=== PATIENT | male | born 1930 | race Caucasian/White ===

== ENCOUNTER 2016-09-01 22:08 | Inpatient (IN) | payer MEDICARE, BC, OTHER ==
[~2016-09-01] VITALS: Ht 172.7 cm; Wt 59.2 kg
[~2016-09-01 22:08] MED LIST: ARIC10TA PO; ASPI1TAB PO; FLON0.054; LIPI20TA PO; NAME10TA PO; SERT25TA PO; SERT50TA PO; SLOWTAB3 PO; VITMTA PO
[2016-09-01 23:50] LABS: BASO % 0.2 % (0.0-1.0); EOS # 0.1 K/mm3 (0.0-0.50); EOS % 0.8 % (0.0-3.0); LARGE UNSTAINED CELL # 0.1 K/mm3 (0.0-0.4); LARGE UNSTAINED CELL % 0.6 % (0.0-4.0); LYMPH # 0.7 K/mm3 (1.5-4.5); LYMPH % 4.6 % (24.0-44.0); MEAN CORPUSCULAR HEMOGLOBIN 31.6 pg (27.0-33.0); MEAN CORPUSCULAR HGB CONC 33.5 g/dl (32.0-36.5); MEAN CORPUSCULAR VOLUME 94.3 fl (80.0-96.0); MONO # 0.6 K/mm3 (0.0-0.8); MONO % 3.6 % (0.0-5.0); NEUTROPHILS # 13.8 K/mm3 (1.8-7.7); NEUTROPHILS % 90.1 % (36.0-66.0); PLATELET COUNT, AUTOMATED 150 k/mm3 (150-450); RED CELL DISTRIBUTION WIDTH 12.5 % (11.5-14.5); WHITE BLOOD COUNT 15.3 K/mm3 (4.0-10.0)
[2016-09-02] VITALS (8 sets, daily range): BP systolic 138–168; BP diastolic 71–87
--- NOTE | 2016-09-02 00:20 | REPUSA ---
CT of the head Clinical history: Headache. Trauma. Protocol: Multiple axial CT images obtained with 5 mm slice thickness were obtained through the head without administration of contrast. Findings: There is a large focal hemorrhagic contusion in the right frontal lobe measuring 3.1 x 1.8 cm. There are numerous scattered areas of subdural hemorrhage throughout the right frontal, right par ietal, right occipital, and left parietal lobes. No significant edema or mass effect is seen at the s ite at this time There are periventricular areas of low attenuation throughout the deep white matter. There is no midline shift or extra-axial fluid collection. The osseous structures are unremarkable. The visualized paranasal sinuses and mastoid air cells are clear. There is superficial soft tissue s welling in the left occipital region. Impression: 1. Large focal hemorrhagic contusion in the right frontal lobe. 2. Small tiny scattered areas of subdural hematoma are seen in the right frontal, right parietal, rig ht occipital, and left parietal lobes. No evidence of edema or mass effect is seen at this time. 3. Superficial soft tissue swelling in the left occipital region. 4. The other findings are consistent with moderate age-related atrophy and chronic small vessel ische kenny disease. ER physician was notified of these findings at 12:18 AM on 09/02/2016.
--- NOTE | 2016-09-02 00:20 | REPUSA ---
CLINICAL HISTORY: Neck pain. TECHNIQUE: Multiple axial images were obtained through the cervical spine. Images were also reconstru cted in coronal and sagittal planes. The study was performed without IV contrast. COMMENTS: Grade 1 anterolisthesis of C4 on C5. This is a chronic finding. There is no fracture or spondylolisthesis visualized. The paraspinal soft tissues are unremarkable. T here are no lytic or blastic lesions. Straightening of cervical lordosis is seen, suggesting muscular spasm. There is evidence of moderate multilevel disk disease, demonstrated by osteophytosis and endplate sclerosis. Findings are more pro minent at C5-6 level. Multilevel spinal canal and neural foramina narrowing is seen. Findings are more prominent at C4-C5 l evel. IMPRESSION: No acute traumatic pathology. Spondylosis. Thank you for your kind referral of this patient.
[2016-09-02] MEDS ORDERED: MIRA3350 PO (00:22)
[2016-09-02] MEDS ORDERED: DOCU100C PO (00:22)
[2016-09-02 00:57] LABS: INR 1.03
[2016-09-02 01:02] LABS: ANION GAP 9 MEQ/L (8-16); BLOOD UREA NITROGEN 15 MG/DL (7-18); CALCIUM LEVEL 8.5 MG/DL (8.8-10.2); CARBON DIOXIDE LEVEL 28 MEQ/L (21-32); CHLORIDE LEVEL 107 MEQ/L (98-107); CREATININE FOR GFR 0.86 MG/DL (0.70-1.30); FREE T4 0.97 NG/DL (0.76-1.46); GLOMERULAR FILTRATION RATE > 60.0 (>35); GLUCOSE, FASTING 103 MG/DL (83-110); POTASSIUM SERUM 4.4 MEQ/L (3.5-5.1); SODIUM LEVEL 144 MEQ/L (136-145)
[2016-09-02] MEDS ORDERED: MIRALAX *UNIT DOSE* 17GM PACKET PO PRN (01:45)
[2016-09-02] MEDS ORDERED: DOCUSATE SODIUM 100 MG CAP PO PRN (01:45)
--- NOTE | 2016-09-02 02:41 | HPEPDOC ---
General Date of Admission September 02, 2016 Primary Care Physician: Earl Bhat MD Attending Physician: TONI NASH DO Chief Complaint The patient is a 86-year-old male admitted with a reason for visit of FALL. Source: Patient History of Present Illness This is a 85-year-old male with past medical history significant for hyperlipidemia, diverticulosis, BPH, GERD, dementia, depression, and fall history. He presents today to the emergency department after being found by his at the bottom of the stairs in a recliner with blood covering his head and clothing. He had apparently endured traumatic injuries to his head from a fall. Unfortunately, was not present to answer my questions. The patient reports that he does not remember the fall. He does not recall any events surrounding the injury. He denies any pain at the moment, and states that he is comfortable. He denies any symptoms of lightheadedness, dizziness, chest pain, abdominal pain, shortness of breath, joint pain, sensory deficits. He was able to identify his full name. He recognized that he was inside a hospital. He was able to identify the year as 2016, but was unable to identify the month. He knew his home address. Was able to identify his primary care physician. According to emergency department staff, patient's personality is not baseline. Patient states that he does not use a walker or cane while for ambulation. In the emergency department, patient's bleeding was stabilized. They placed 3 michelle in his left occipital scalp in the area of laceration. Bleeding has since stabilized. They also took a CT of the neck, completed on 09/01/2016 which showed spondylosis in no acute traumatic pathology. Patient had a head CT completed on 09/01/2016 which showed a large focal hemorrhagic contusion in the right frontal lobe. There were small tiny scattered areas of subdural hematoma in the right frontal, right parietal, right occipital, and left parietal lobes. There were no evidence of edema or mass effect seen. There was also superficial skin soft tissue swelling in the left occipital region. And age related chronic ischemic changes and atrophy. Home Medications Scheduled Atorvastatin Calcium (Lipitor) 20 Mg Tab 10 MG PO Q2D (Reported) AT QHS Donepezil Hydrochloride (Aricept) 10 Mg Tab 5 MG PO QHS (Reported) Memantine Hydrochloride (Namenda) 10 Mg Tab 10 MG PO BID (Reported) Multivitamins *[facility] STOCKED* (Thera M Plus *[facility] STOCKED*) 1 Tab Tab 1 TAB PO DAILY (Reported) Sertraline Hcl (Sertraline HCl) 50 Mg Tab 50 MG PO DAILY (Reported) Scheduled PRN Docusate Sodium (Docusate Sodium) 100 Mg Cap 100 MG PO QHS PRN PRN CONSTIPATION (Reported) Polyethylene Glycol (Miralax) 1 Pow Pow 17 GM PO DAILY PRN PRN CONSTIPATION ( Reported) dilute in 8 ounces of water or juice Allergies Coded Allergies: No Known Allergies (Unverified , 03/08/15) Past Medical History Medical History Hyperlipidemia Diverticulosis BPH GERD History of fall Dementia Depression Surgical History Cataract Colonoscopies, most recent 2014 Family History Significant Family History: Noncontributory Social History * Smoker: non-smoker Alcohol: denies Drugs: denies Recent Travel/Sick Contacts: Denies: Recent travel Psychosocial History: Dementia, Depression Independently lives with his , they have no pets. Patient is retired. Review of Symptoms Constitutional: Denies: Chills, Fever, Night Sweats Eyes: Denies: Pain, Vision change ENT: Denies: Dysphagia, Ear Pain, Head Aches Skin: Reports: Other (laceration injury to posterior scalp) Pulmonary: Denies: Cough, Dyspnea Cardiovascular: Denies: Chest Pain, Lt Headedness, Orthopnea, Palpitations, Paroxysmal Noc. Dyspnea Gastrointestinal: Denies: Abdominal Pain, Diarrhea, Nausea, Vomiting Genitourinary: Denies: Dysuria, Frequency, Incontinence, Retention Hematologic: Denies: Bleeding Excessively, Bruising Musculoskeletal: Denies: Back Pain, Joint Pain, Muscle Pain, Neck Pain, Spasms Neurological: Denies: Change in speech, Confusion, Numbness, Weakness Psych: Reports: Mood Normal, Denies: Depression, Memory Issues Physical Examination General Exam: Positive: Alert, Cooperative, Negative: No Acute Distress Eye Exam: Positive: Conjunctiva & lids normal, EOMI, PERRLA, Negative: Sclera icteric ENT Exam: Positive: Mucous membr. moist/pink, Pharynx Normal, Negative: Atraumatic (laceration injury to the left occiput, 3 michelle, injury is dry, no discharge. Some swelling in the area.) Neck Exam: Positive: Supple, Negative: JVD, thyromegaly Chest Exam: Positive: Clear to auscultation, Normal air movement Heart Exam: Positive: Normal S1, Normal S2, Rate Normal, Regular Rhythm, Negative: Murmurs, Rubs Abdomen Exam: Positive: Normal bowel sounds, Soft, Negative: Hepatospenomegaly, Tenderness Extremity Exam: Positive: Normal pulses, Negative: Clubbing, Cyanosis, Edema Skin Exam: Positive: Lesion (swelling appreciated in the left occiput) Neuro Exam: Positive: Cranial Nerves 3-12 NL, Normal Gait, Normal Speech Psych Exam: Positive: Oriented x 3 (oriented to person, place, year) Vital Signs Temperature 95.5 Pulse 59 Respirations 18 Blood pressure 150/74 O2 saturation 99% on room air Laboratory Data Labs 24H Laboratory Tests 2 09/01/16 23:40: White Blood Count 15.3H, Red Blood Count 4.44, Hemoglobin 14.0, Hematocrit 41.8L , Mean Corpuscular Volume 94.3, Mean Corpuscular Hemoglobin 31.6, Mean Corpuscular Hemoglobin Concent 33.5, Red Cell Distribution Width 12.5, Platelet Count 150, Neutrophils (%) (Auto) 90.1H, Lymphocytes (%) (Auto) 4.6L, Monocytes (%) (Auto) 3.6, Eosinophils (%) (Auto) 0.8, Basophils (%) (Auto) 0.2, Neutrophils # (Auto) 13.8H, Lymphocytes # (Auto) 0.7L, Monocytes # (Auto) 0.6, Eosinophils # (Auto) 0.1, Basophils # (Auto) 0.0, Large Unclassified Cells # 0.1 , Large Unclassified Cells % 0.6 CBC/BMP Laboratory Tests 09/01/16 23:40 Red Blood Count 4.44, Mean Corpuscular Volume 94.3, Mean Corpuscular Hemoglobin 31.6, Mean Corpuscular Hemoglobin Concent 33.5, Red Cell Distribution Width 12.5 , Neutrophils (%) (Auto) 90.1 H, Lymphocytes (%) (Auto) 4.6 L, Monocytes (%) ( Auto) 3.6, Eosinophils (%) (Auto) 0.8, Basophils (%) (Auto) 0.2, Neutrophils # ( Auto) 13.8 H, Lymphocytes # (Auto) 0.7 L, Monocytes # (Auto) 0.6, Eosinophils # (Auto) 0.1, Basophils # (Auto) 0.0 RAD Interpretation STUDY: head CT Rad Actions: Report Reviewed RAD Interpretation: Other Result Comments: (large focal hemorrhagic contusion in the right frontal lobe. There were small tiny scattered areas of subdural hematoma in the right frontal, right parietal, right occipital, and left parietal lobes. There were no evidence of edema or mass effect seen. There was also superficial skin soft tissue swelling in the left occipital region. And age related chronic ischemic changes and atrophy) Problems (1) Syncope Status: Acute Problem Text: Will be admitted to PCU and placed on telemetry. Patient will be monitored overnight and stabilized. Further workup pending. Pending EEG. Pending carotid echo. Pending repeat cardiac markers. (2) Intracerebral bleed due to trauma Status: Acute Problem Text: Case was discussed with neurosurgery. We will monitor his mental status. Patient will have neuro checks overnight. Repeat head CT in the morning. We will review changes. We will review repeat CBC. (3) Dementia Status: Chronic Problem Text: Continue patient on home medications. (4) Depression Status: Chronic Problem Text: Continue patient on home medication. Plan / VTE VTE Prophylaxis Ordered?: Yes LOVE ACUÑA DO Sep 02, 2016 01:49
[2016-09-02] MEDS: DONEPEZIL 5 MG TAB PO SCH ×2 (03:54→20:27)
[2016-09-02 05:38] LABS: MEAN CORPUSCULAR HEMOGLOBIN 30.9 pg (27.0-33.0); MEAN CORPUSCULAR HGB CONC 33.2 g/dl (32.0-36.5); MEAN CORPUSCULAR VOLUME 92.9 fl (80.0-96.0); RED CELL DISTRIBUTION WIDTH 12.4 % (11.5-14.5); WHITE BLOOD COUNT 11.4 K/mm3 (4.0-10.0)
[2016-09-02 05:53] LABS: ANION GAP 7 MEQ/L (8-16); BLOOD UREA NITROGEN 14 MG/DL (7-18); CALCIUM LEVEL 8.6 MG/DL (8.8-10.2); CARBON DIOXIDE LEVEL 28 MEQ/L (21-32); CHLORIDE LEVEL 107 MEQ/L (98-107); CREATININE FOR GFR 0.83 MG/DL (0.70-1.30); GLOMERULAR FILTRATION RATE > 60.0 (>35); GLUCOSE, FASTING 127 MG/DL (83-110); POTASSIUM SERUM 4.2 MEQ/L (3.5-5.1); SODIUM LEVEL 142 MEQ/L (136-145)
[2016-09-02] MEDS ORDERED: ONDANSETRON 4MG/2ML VIAL (J2405) IV ONE (07:00)
[2016-09-02] MEDS: MULTIVITAMINS/MINERALS THERAP 1 TAB PO SCH (09:16)
[2016-09-02] MEDS: MEMANTINE 5MG TABLET (NAMENDA) PO SCH ×2 (09:16→20:27)
[2016-09-02] MEDS: SERTRALINE HCL 50 MG TAB PO SCH (09:17)
--- NOTE | 2016-09-02 10:22 | REP ---
PORTABLE CHEST X-RAY: Single view. HISTORY: Syncope. Injury in a fall down stairs. Comparison chest x-ray June 21, 2016. FINDINGS: EKG monitoring electrodes overlie the chest. There is no evidence of pneumothorax or hydrothorax. Mediastinum is not widened. The aorta is slightly calcific. Heart size is normal. Lung whit[place] are clear. Pulmonary vasculature is not increased. No rib or other fracture is appreciated. IMPRESSION: No active disease. Signed by William Espinosa MD 09/02/2016 04:39 P
--- NOTE | 2016-09-02 11:53 | IPNPDOC ---
Subjective Date Seen The patient was seen on 09/02/16. Subjective Chief Complaint/HPI The patient is a 86-year-old male admitted with a reason for visit of Syncope. Events since last encounter Feels well. No headaache. NO vision changes. Constitutional: Denies: Chills, Fever Pulmonary: Denies: Cough, Dyspnea Cardiovascular: Denies: Chest Pain, Palpitations Gastrointestinal: Denies: Abdominal Pain, Diarrhea, Nausea, Vomiting Objective Physical Examination General Exam: Positive: Alert, Cooperative, Negative: No Acute Distress Eye Exam: Positive: Conjunctiva & lids normal, EOMI, PERRLA, Negative: Sclera icteric ENT Exam: Positive: Ext Auditory Canal Nml, Mucous membr. moist/pink, Nares Patent, Pharyngeal Edema, Pharynx Normal, Pinna Normal, Tongue Midline, Tympanic Membranes Normal, Negative: Atraumatic, Other ENT Neck Exam: Positive: Supple, Negative: JVD, thyromegaly Chest Exam: Positive: Clear to auscultation, Normal air movement Heart Exam: Positive: Normal S1, Normal S2, Rate Normal, Regular Rhythm, Negative: Murmurs, Rubs Abdomen Exam: Positive: Normal bowel sounds, Soft, Negative: Hepatospenomegaly, Tenderness Extremity Exam: Positive: Normal pulses, Negative: Clubbing, Cyanosis, Edema Skin Exam: Positive: Lesion (swelling appreciated in the left occiput) Neuro Exam: Positive: Cranial Nerves 3-12 NL, Normal Gait, Normal Speech Psych Exam: Positive: Oriented x 3 (oriented to person, place, year) Other physical findings JFW: mental status declined fom baseline. Does not recognize me (thinks I am his ambulance officer). Not aware of location. has baseline dementia; this is worse Also, HEENT exam should note scalp michelle Assessment /Plan Problems (1) Syncope Status: Acute Problem Text: Will be admitted to PCU and placed on telemetry. Patient will be monitored overnight and stabilized. Further workup pending. Pending EEG. Pending carotid echo. Pending repeat cardiac markers. 09/02 - No further syncope Telemetry uneventful so far. Patient is bright and alert, but weak. Cardiac enzymes normal so far. EEG done this morning - results pending (2) Intracerebral bleed due to trauma Status: Acute Problem Text: Case was discussed with neurosurgery. We will monitor his mental status. Patient will have neuro checks overnight. Repeat head CT in the morning. We will review changes. We will review repeat CBC. 09/02 - Neuro status stable F/U CT head pending this am JFW: CT: sl inc intraparenchymal bleed (3) Dementia Status: Chronic Problem Text: Continue patient on home medications. JFW: current mental status significantly below baseline (4) Depression Status: Chronic Problem Text: Continue patient on home medication. (5) Occipital scalp laceration Status: Acute Problem Text: has 3 michelle in scalp. 1) needs removal in 10-14days 2) no MRI if michelle are metallic Plan/VTE VTE Prophylaxis Ordered?: Yes (SCD TEDs - no anticoagulation due to subdural hematomas) VTE Exclusion Pharmacological: Hemorrhage VS, I&O, 24H, Fishbone Vital Signs/I&O Vital Signs Date Time Temp Pulse Resp B/P Pulse Ox O2 Delivery O2 Flow Rate FiO2 09/02/16 08:10 88 147/76 09/02/16 08:00 97.5 18 97 09/02/16 07:02 Room Air Laboratory Data 24H LABS Laboratory Tests 2 09/01/16 23:40: White Blood Count 15.3H, Red Blood Count 4.44, Hemoglobin 14.0, Hematocrit 41.8L , Mean Corpuscular Volume 94.3, Mean Corpuscular Hemoglobin 31.6, Mean Corpuscular Hemoglobin Concent 33.5, Red Cell Distribution Width 12.5, Platelet Count 150, Neutrophils (%) (Auto) 90.1H, Lymphocytes (%) (Auto) 4.6L, Monocytes (%) (Auto) 3.6, Eosinophils (%) (Auto) 0.8, Basophils (%) (Auto) 0.2, Neutrophils # (Auto) 13.8H, Lymphocytes # (Auto) 0.7L, Monocytes # (Auto) 0.6, Eosinophils # (Auto) 0.1, Basophils # (Auto) 0.0, Large Unclassified Cells # 0.1 , Large Unclassified Cells % 0.6 09/02/16 05:12: Anion Gap 7L, Blood Urea Nitrogen 14, Creatinine 0.83, Sodium Level 142, Potassium Level 4.2, Chloride Level 107, Carbon Dioxide Level 28, Calcium Level 8.6L, Triglycerides Level 98, Cholesterol Level 141, HDL Cholesterol 62, LDL Cholesterol 59.4, Cholesterol/HDL Ratio 2.274, Glomerular Filtration Rate > 60.0 , Non-HDL Cholesterol (LDL + VLDL) 79 09/02/16 08:25: Creatine Kinase MB 5.0H, Creatine Kinase MB Relative Index 1.81, Total Creatine Kinase 276, Troponin I < 0.02 CBC/BMP Laboratory Tests 09/01/16 23:40 Red Blood Count 4.44, Mean Corpuscular Volume 94.3, Mean Corpuscular Hemoglobin 31.6, Mean Corpuscular Hemoglobin Concent 33.5, Red Cell Distribution Width 12.5 , Neutrophils (%) (Auto) 90.1 H, Lymphocytes (%) (Auto) 4.6 L, Monocytes (%) ( Auto) 3.6, Eosinophils (%) (Auto) 0.8, Basophils (%) (Auto) 0.2, Neutrophils # ( Auto) 13.8 H, Lymphocytes # (Auto) 0.7 L, Monocytes # (Auto) 0.6, Eosinophils # (Auto) 0.1, Basophils # (Auto) 0.0 09/02/16 05:12 Red Blood Count 4.38, Mean Corpuscular Volume 92.9, Mean Corpuscular Hemoglobin 30.9, Mean Corpuscular Hemoglobin Concent 33.2, Red Cell Distribution Width 12.4 , Calcium Level 8.6 L ALBERTO BHAT PA-C Sep 02, 2016 11:52 Earl Bhat MD Sep 02, 2016 15:27
--- NOTE | 2016-09-02 11:55 | REP ---
CT HEAD WITHOUT CONTRAST: HISTORY: Intracranial hemorrhage. COMPARISON: 09/01/2016 An intraparenchymal hematoma is present at the right frontal lobe. The hematoma measures 2.9 cm in width and is slightly increased in size compared to the previous study. There is mass effect with effacement of the overlying cortical sulci. There is no midline shift. Areas of decreased attenuation are present in the periventricular and subcortical white matter. This represents small vessel ischemic disease. The ventricular system and cortical sulci are dilated consistent with mild volume loss. A small amount of subarachnoid hemorrhage is present that is unchanged compared to the previous study. The visualized sinuses are clear. IMPRESSION: 1. 2.9 cm right frontal lobe intraparenchymal hematoma slightly increased in size compared to the previous study. 2. Small vessel ischemic disease. 3. Mild volume loss. 4. There is a small amount of scattered subarachnoid hemorrhage, unchanged compared to the previous study. Signed by Skyler Luong MD 09/02/2016 12:03 P
[2016-09-02] MEDS: SLF 3 ML SYR IV SCH ×2 (14:00→20:27)
[2016-09-02] MEDS ORDERED: FLEET ENEMA PR PRN (15:30)
[2016-09-02] MEDS ORDERED: SLF 3 ML SYR IV PRN (16:30)
--- NOTE | 2016-09-02 17:44 | ECHO ---
DATE OF PROCEDURE: 09/02/2016 REFERRING PHYSICIAN: Ulysses Romero INDICATION: Syncope. HEIGHT: 173 cm WEIGHT: 72 kg Dimensions IVS: 1.0 LV: 3.3 LVPW: 0.9 LA: 3.6 Aorta 3.4 FINDINGS: Study is of acceptable technical quality. Left ventricle is normal size in systolic function. Estimated left ventricle ejection fraction (LVEF) 65 to 70%. Right ventricle is also normal size and systolic function. Both atria appear normal. The aortic valve has three cusps. There are mild sclerotic abnormalities but mobility is preserved. Mitral valve appears normal, there is mild thickening of the mitral leaflet but mobility of leaflet is preserved. Tricuspid valve is normal. Pulmonic valve was not well seen. No pericardial effusion is noted. Inferior vena cava was not visualized. Aortic root is normal. Aortic arch and abdominal aorta were poorly seen. Doppler interrogation reveals no significant aortic stenosis and trivial insufficiency. There is also trace mitral insufficiency and mild tricuspid insufficiency. Calculated pulmonary artery pressure is within normal limits assuming normal central venous pressure. Mitral inflow pattern and tissue Doppler imaging of mitral annulus revealed grade 1 diastolic dysfunction. CONCLUSION: 1. Study is of fair technical quality. 2. Normal left ventricle (LV) size and systolic function, grade 1 diastolic dysfunction. 3. Mild degenerative abnormalities of aortic and mitral valves, but without significant functional impairment. 4. Unable to estimate central venous pressure. 5. Probably normal or possibly mildly elevated pulmonary artery pressure. COMMENT: Subacute bacterial endocarditis (SBE) prophylaxis is not recommended. Overall probably normal echocardiogram for patient's age. No finding to explain syncopal event. [facility]
[2016-09-02] MEDS: SENOKOT S TAB PO SCH (20:26)
[2016-09-02] MEDS: ATORVASTATIN 20 MG TAB PO SCH (20:26)
[2016-09-02] MEDS: MIRALAX *UNIT DOSE* 17GM PACKET PO SCH (20:27)
--- NOTE | 2016-09-02 20:37 | REP ---
CAROTID ULTRASOUND: Real-time ultrasound evaluation and duplex Doppler interrogation of the extracranial carotid vasculature is performed. There is mild plaquing and narrowing in both carotid bulbs extending into the internal and external carotid arteries. Luminal narrowing is less than 50%. There is no evidence of hemodynamically significant stenosis of either internal carotid artery. Normal flow velocities are seen. The vertebral arteries demonstrate normal direction of flow. RIGHT LEFT Peak systolic velocity ICA 51 cm/s 80.7 cm/s End diastolic velocity ICA 10.5 cm/s 16.6 cm/s Peak systolic velocity CCA 76.8 cm/s 86.8 cm/s Peak systolic velocity ECA 104.9 cm/s 57 cm/s ICA/CCA ratio 0.67 0.93 IMPRESSION: Bilateral luminal narrowing of the internal carotid arteries less than 50%. No evidence of hemodynamically significant stenosis. Signed by Damian Saeed MD 09/02/2016 08:29 P
[2016-09-03] VITALS (7 sets, daily range): BP systolic 131–168; BP diastolic 63–82
[2016-09-03] MEDS: SLF 3 ML SYR IV SCH ×3 (04:35→20:13)
[2016-09-03 05:46] LABS: MEAN CORPUSCULAR HEMOGLOBIN 31.5 pg (27.0-33.0); MEAN CORPUSCULAR HGB CONC 33.8 g/dl (32.0-36.5); MEAN CORPUSCULAR VOLUME 93.2 fl (80.0-96.0); RED CELL DISTRIBUTION WIDTH 12.5 % (11.5-14.5); WHITE BLOOD COUNT 11.6 K/mm3 (4.0-10.0)
[2016-09-03 06:14] LABS: ANION GAP 8 MEQ/L (8-16); BLOOD UREA NITROGEN 15 MG/DL (7-18); CALCIUM LEVEL 7.7 MG/DL (8.8-10.2); CARBON DIOXIDE LEVEL 27 MEQ/L (21-32); CHLORIDE LEVEL 107 MEQ/L (98-107); CREATININE FOR GFR 0.81 MG/DL (0.70-1.30); GLOMERULAR FILTRATION RATE > 60.0 (>35); GLUCOSE, FASTING 106 MG/DL (83-110); POTASSIUM SERUM 3.9 MEQ/L (3.5-5.1); SODIUM LEVEL 142 MEQ/L (136-145)
--- NOTE | 2016-09-03 08:45 | IPNPDOC ---
Subjective Date Seen The patient was seen on 09/03/16. Subjective Chief Complaint/HPI The patient is a 86-year-old male admitted with a reason for visit of Syncope. Events since last encounter Pt denies headaches. Denies CP, SOB, Abd pain. Pulmonary: Denies: Dyspnea Cardiovascular: Denies: Chest Pain Gastrointestinal: Denies: Abdominal Pain, Nausea, Vomiting Objective Physical Examination General Exam: Positive: Alert, Cooperative, Negative: No Acute Distress Eye Exam: Positive: Conjunctiva & lids normal, EOMI, PERRLA, Negative: Sclera icteric ENT Exam: Positive: Ext Auditory Canal Nml, Mucous membr. moist/pink, Nares Patent, Pharynx Normal, Tongue Midline, Negative: Atraumatic, Other ENT Neck Exam: Positive: Supple, Negative: JVD, thyromegaly Chest Exam: Positive: Clear to auscultation, Normal air movement Heart Exam: Positive: Normal S1, Normal S2, Rate Normal, Regular Rhythm, Negative: Murmurs, Rubs Abdomen Exam: Positive: Normal bowel sounds, Soft, Negative: Hepatospenomegaly, Tenderness Extremity Exam: Positive: Normal pulses, Negative: Clubbing, Cyanosis, Edema Skin Exam: Positive: Lesion (swelling appreciated in the left occiput) Neuro Exam: Positive: Cranial Nerves 3-12 NL, Normal Gait, Normal Speech Psych Exam: Positive: Oriented x 3 (oriented to person, place, year) Assessment /Plan Problems (1) Syncope Status: Acute Problem Text: Telemetry uneventful so far. 09/03 -at baseline MS per 09/02 - No further syncope 3/3 EEG right frontal, parietal, temporal and occipital slowing and mild attenuation consistent with focal, cortical, structural, or functional abnormalities. No epileptiform abnormalities were seen Neurosurgery has been following. 3/ cervical CT s fracture 3/ carotid US s significant ICA stenosis 3/3 ECHO LVEF 65-70%. Grade 1 diastolic dysfunction (2) Intracerebral bleed due to trauma Status: Acute Problem Text: 3 CT head stable 27 mm IP hematoma slight SAH c/w 3/ CT, stable neuro exam Appreciate Neurosurgery input (3) Dementia Status: Chronic Problem Text: Continue patient on home medications. JFW: current mental status significantly below baseline (4) Depression Status: Chronic Problem Text: Continue patient on home medication. (5) Occipital scalp laceration Status: Acute Problem Text: has 3 michelle in scalp. 1) needs removal in 10-14days 2) no MRI if michelle are metallic Plan/VTE VTE Prophylaxis Ordered?: Yes (SCD TEDs - no anticoagulation due to subdural hematomas) VTE Exclusion Pharmacological: Hemorrhage VS, I&O, 24H, Fishbone Vital Signs/I&O Vital Signs Date Time Temp Pulse Resp B/P Pulse Ox O2 Delivery O2 Flow Rate FiO2 09/03/16 08:00 97.0 87 18 133/63 97 Room Air I&O- Last 24 Hours up to 6 AM 09/03/16 06:00 Intake Total 880 ml Output Total 100 ml Balance 780 ml Laboratory Data 24H LABS Laboratory Tests 2 09/02/16 16:03: Creatine Kinase MB 7.5H, Creatine Kinase MB Relative Index 1.85, Total Creatine Kinase 405H, Troponin I < 0.02 09/03/16 05:30: Anion Gap 8, Blood Urea Nitrogen 15, Creatinine 0.81, Sodium Level 142, Potassium Level 3.9, Chloride Level 107, Carbon Dioxide Level 27, Calcium Level 7.7L, Glomerular Filtration Rate > 60.0 CBC/BMP Laboratory Tests 09/03/16 05:30 Calcium Level 7.7 L, Red Blood Count 4.04 L, Mean Corpuscular Volume 93.2, Mean Corpuscular Hemoglobin 31.5, Mean Corpuscular Hemoglobin Concent 33.8, Red Cell Distribution Width 12.5 Joseph Rome Sep 03, 2016 08:45 Pablo Bowers M.D. Sep 03, 2016 14:36 Joseph Rome Sep 03, 2016 08:45
[2016-09-03] MEDS: MULTIVITAMINS/MINERALS THERAP 1 TAB PO SCH (08:57)
[2016-09-03] MEDS: SENOKOT S TAB PO SCH ×2 (08:57→20:10)
[2016-09-03] MEDS: MIRALAX *UNIT DOSE* 17GM PACKET PO SCH ×2 (08:57→20:13)
[2016-09-03] MEDS: SERTRALINE HCL 50 MG TAB PO SCH (08:57)
[2016-09-03] MEDS: MEMANTINE 5MG TABLET (NAMENDA) PO SCH ×2 (08:57→20:10)
--- NOTE | 2016-09-03 09:18 | EEG ---
DATE OF PROCEDURE: 09/02/2016 REFERRING PHYSICIAN: Earl Bhat MD DIAGNOSIS: Head injury. EEG NUMBER: [id number]. HISTORY: Patient is a 86-year-old man who was admitted at [facility] after a fall and was found to have right-sided subdural hematoma and hemorrhagic contusion. This EEG was done to rule out epileptic potential. He is currently taking Aricept, Namenda, Lipitor, Zoloft, etc. TECHNICAL DESCRIPTION: This digital EEG was recorded by 21 scalp, ear and two EKG electrodes and was reviewed in bipolar and referential montages following reformatting in 10-20 international electrode placement system. INTERPRETATION: The patient was noted to be in awake and drowsy states during this EEG. Resting awake background rhythm consisted of 8 Hz alpha activity measuring 15-30 microvolts in amplitude, which were symmetric and reactive to eye opening. Stage I and II sleep were reviewed and showed mild attenuation in the right cerebral hemisphere. Right frontal parietal, temporal, and occipital theta slowing was noted. Hyperventilation could not be performed. Photic stimulation remained unremarkable. EKG revealed normal sinus rhythm. No epileptiform abnormalities were seen. CONCLUSION: This EEG in awake, drowsy states, stage 1 and 2 sleep is abnormal due to presence of right frontal, parietal, temporal and occipital slowing and mild attenuation consistent with focal, cortical, structural, or functional abnormalities. No epileptiform abnormalities were seen. Clinical correlation is recommended.
--- NOTE | 2016-09-03 09:52 | REP ---
CT BRAIN WITHOUT IV CONTRAST: CT brain is performed without IV contrast. Once again, there is an intraparenchymal hematoma in the right frontal lobe which is unchanged in size. There is mild surrounding edema with effacement of sulci. Diameter is about 2.7 cm similar to the prior exam. There is no midline shift. More superiorly in the right frontal and parietal regions, areas of subarachnoid hemorrhage are also stable. Tiny posterior subarachnoid hemorrhage is seen in the left parietal region. There is underlying atrophy and chronic ischemic changes. No skull fracture is seen. Small amount of fluid is seen in the maxillary sinuses bilaterally. There are vascular calcifications in the carotid siphons. IMPRESSION: Stable exam. Signed by Damian Saeed MD 09/03/2016 07:57 P
--- NOTE | 2016-09-03 12:16 | ECGEPIP ---
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
[2016-09-03] MEDS ORDERED: CALCIUM CARBONATE 500 MG CHEW U/D PO ONE (16:15)
[2016-09-03 16:42] LABS: IONIZED CALCIUM 4.7 MG/DL (4.5-5.3)
[2016-09-03 17:00] LABS: ALBUMIN 3.7 GM/DL (3.2-5.2); ANION GAP 6 MEQ/L (8-16); BLOOD UREA NITROGEN 16 MG/DL (7-18); CALCIUM LEVEL 8.3 MG/DL (8.8-10.2); CARBON DIOXIDE LEVEL 30 MEQ/L (21-32); CHLORIDE LEVEL 105 MEQ/L (98-107); CREATININE FOR GFR 0.86 MG/DL (0.70-1.30); GLOMERULAR FILTRATION RATE > 60.0 (>35); GLUCOSE, FASTING 113 MG/DL (83-110); PHOSPHORUS LEVEL 2.9 MG/DL (2.5-4.9); POTASSIUM SERUM 4.1 MEQ/L (3.5-5.1); SODIUM LEVEL 141 MEQ/L (136-145)
[2016-09-03] MEDS: DONEPEZIL 5 MG TAB PO SCH (20:10)
[2016-09-04] VITALS (7 sets, daily range): BP systolic 47–184; BP diastolic 66–82
[2016-09-04 05:29] LABS: MEAN CORPUSCULAR HEMOGLOBIN 31.5 pg (27.0-33.0); MEAN CORPUSCULAR HGB CONC 34.2 g/dl (32.0-36.5); MEAN CORPUSCULAR VOLUME 92.2 fl (80.0-96.0); RED CELL DISTRIBUTION WIDTH 12.3 % (11.5-14.5); WHITE BLOOD COUNT 9.3 K/mm3 (4.0-10.0)
[2016-09-04 05:36] LABS: ANION GAP 9 MEQ/L (8-16); BLOOD UREA NITROGEN 17 MG/DL (7-18); CALCIUM LEVEL 8.5 MG/DL (8.8-10.2); CARBON DIOXIDE LEVEL 28 MEQ/L (21-32); CHLORIDE LEVEL 104 MEQ/L (98-107); CREATININE FOR GFR 0.84 MG/DL (0.70-1.30); GLOMERULAR FILTRATION RATE > 60.0 (>35); GLUCOSE, FASTING 105 MG/DL (83-110); POTASSIUM SERUM 3.7 MEQ/L (3.5-5.1); SODIUM LEVEL 141 MEQ/L (136-145)
[2016-09-04] MEDS: SLF 3 ML SYR IV SCH ×3 (05:52→21:25)
--- NOTE | 2016-09-04 07:30 | IPNPDOC ---
Subjective Date Seen The patient was seen on 09/04/16. Subjective Chief Complaint/HPI The patient is a 86-year-old male admitted with a reason for visit of Syncope. Events since last encounter Pt denies headaches, CP, SOB, Abd pain. ENT: Denies: Head Aches Pulmonary: Denies: Dyspnea Cardiovascular: Denies: Chest Pain Gastrointestinal: Denies: Abdominal Pain, Nausea, Vomiting Objective Physical Examination General Exam: Positive: Alert, Cooperative, Negative: No Acute Distress Eye Exam: Positive: Conjunctiva & lids normal, EOMI, PERRLA, Negative: Sclera icteric ENT Exam: Positive: Ext Auditory Canal Nml, Mucous membr. moist/pink, Nares Patent, Pharynx Normal, Tongue Midline, Negative: Atraumatic, Other ENT Neck Exam: Positive: Supple, Negative: JVD, thyromegaly Chest Exam: Positive: Clear to auscultation, Normal air movement Heart Exam: Positive: Normal S1, Normal S2, Rate Normal, Regular Rhythm, Negative: Murmurs, Rubs Abdomen Exam: Positive: Normal bowel sounds, Soft, Negative: Hepatospenomegaly, Tenderness Extremity Exam: Negative: Clubbing, Cyanosis, Edema Skin Exam: Positive: Lesion (swelling appreciated in the left occiput) Neuro Exam: Positive: Normal Speech Psych Exam: Positive: Oriented x 3 (oriented to person, place, year) Assessment /Plan Problems (1) Syncope Status: Acute Problem Text: Telemetry uneventful so far. 09/03 -at baseline MS per 09/02 - No further syncope 09/02 EEG right frontal, parietal, temporal and occipital slowing and mild attenuation consistent with focal, cortical, structural, or functional abnormalities. No epileptiform abnormalities were seen Neurosurgery has been following. 09/[address] s fracture 09/02 carotid US s significant ICA stenosis 09/02 ECHO LVEF 65-70%. Grade 1 diastolic dysfunction (2) Intracerebral bleed due to trauma Status: Acute Problem Text: nothing more to add per Neurosurgery-Narda 09/04 - Dr Laboy following. Pt receiving PT. 09/03 CT head stable 27 mm IP hematoma slight SAH c/w 09/02 CT, stable neuro exam (3) Dementia Status: Chronic Problem Text: Continue patient on home medications. JFW: current mental status significantly below baseline (4) Depression Status: Chronic Problem Text: Continue patient on home medication. (5) Occipital scalp laceration Status: Acute Problem Text: has 3 michelle in scalp. 1) needs removal in 10-14days 2) no MRI if michelle are metallic Plan/VTE VTE Prophylaxis Ordered?: Yes (SCD TEDs - no anticoagulation due to subdural hematomas) VTE Exclusion Pharmacological: Hemorrhage Plan 09/02 unsafe per PT VS, I&O, 24H, Fishbone Vital Signs/I&O Vital Signs Date Time Temp Pulse Resp B/P Pulse Ox O2 Delivery O2 Flow Rate FiO2 09/04/16 05:30 136/66 09/04/16 04:00 96.3 73 18 99 Room Air I&O- Last 24 Hours up to 6 AM 09/04/16 06:00 Intake Total 240 ml Output Total 1250 ml Balance -1010 ml Laboratory Data 24H LABS Laboratory Tests 2 09/03/16 16:31: Albumin 3.7, Blood Urea Nitrogen 16, Creatinine 0.86, Sodium Level 141, Potassium Level 4.1, Chloride Level 105, Carbon Dioxide Level 30, Anion Gap 6L, Calcium Level 8.3L, Glomerular Filtration Rate > 60.0, Phosphorus Level 2.9, Whole Blood Ionized Calcium 4.7 09/04/16 04:54: Blood Urea Nitrogen 17, Creatinine 0.84, Sodium Level 141, Potassium Level 3.7, Chloride Level 104, Carbon Dioxide Level 28, Anion Gap 9, Calcium Level 8.5L, Glomerular Filtration Rate > 60.0 CBC/BMP Laboratory Tests 09/03/16 16:31 Anion Gap 6 L 09/04/16 04:54 Calcium Level 8.5 L, Red Blood Count 4.32, Mean Corpuscular Volume 92.2, Mean Corpuscular Hemoglobin 31.5, Mean Corpuscular Hemoglobin Concent 34.2, Red Cell Distribution Width 12.3 Joseph Rome Sep 04, 2016 07:30 Pablo Bowers M.D. Sep 04, 2016 14:31
[2016-09-04] MEDS: MEMANTINE 5MG TABLET (NAMENDA) PO SCH ×2 (09:00→21:25)
[2016-09-04] MEDS: MIRALAX *UNIT DOSE* 17GM PACKET PO SCH ×2 (09:00→21:25)
[2016-09-04] MEDS: SENOKOT S TAB PO SCH ×2 (09:50→21:25)
[2016-09-04] MEDS: MULTIVITAMINS/MINERALS THERAP 1 TAB PO SCH (09:51)
[2016-09-04] MEDS: SERTRALINE HCL 50 MG TAB PO SCH (09:51)
[2016-09-04] MEDS ORDERED: PROCHLORPERAZINE 5 MG TAB (S0183) PO PRN (15:30)
[2016-09-04] MEDS ORDERED: PROCHLORPERAZINE 5 MG TAB (S0183) PO ONE (16:15)
[2016-09-04] MEDS: DONEPEZIL 5 MG TAB PO SCH (21:25)
[2016-09-04] MEDS: ATORVASTATIN 20 MG TAB PO SCH (21:25)
[2016-09-05] VITALS: BP 132/84
[2016-09-05 04:00] VITALS: BP 133/75
[2016-09-05 05:36] LABS: MEAN CORPUSCULAR HEMOGLOBIN 31.6 pg (27.0-33.0); MEAN CORPUSCULAR HGB CONC 34.3 g/dl (32.0-36.5); MEAN CORPUSCULAR VOLUME 92.2 fl (80.0-96.0); RED CELL DISTRIBUTION WIDTH 12.4 % (11.5-14.5)
[2016-09-05 05:58] LABS: ANION GAP 10 MEQ/L (8-16); BLOOD UREA NITROGEN 19 MG/DL (7-18); CALCIUM LEVEL 8.8 MG/DL (8.8-10.2); CARBON DIOXIDE LEVEL 27 MEQ/L (21-32); CHLORIDE LEVEL 104 MEQ/L (98-107); CREATININE FOR GFR 0.81 MG/DL (0.70-1.30); GLOMERULAR FILTRATION RATE > 60.0 (>35); GLUCOSE, FASTING 87 MG/DL (83-110); POTASSIUM SERUM 3.6 MEQ/L (3.5-5.1); SODIUM LEVEL 141 MEQ/L (136-145)
[2016-09-05] MEDS: SLF 3 ML SYR IV SCH (06:12)
[2016-09-05 07:25] VITALS: BP 144/81
--- NOTE | 2016-09-05 08:36 | IPNPDOC ---
Subjective Date Seen The patient was seen on 09/05/16. Subjective Chief Complaint/HPI Pt c/o dizziness with change of position. General: Denies: Fatigue Constitutional: Denies: Chills, Fever Eyes: Denies: Vision change Pulmonary: Denies: Cough, Dyspnea Cardiovascular: Denies: Chest Pain, Palpitations Gastrointestinal: Denies: Diarrhea, Nausea, Vomiting Neurological: Denies: Weakness Psych: Reports: Mood Normal Objective Physical Examination General Exam: Positive: Alert, Cooperative, Negative: No Acute Distress Eye Exam: Positive: Conjunctiva & lids normal, EOMI, PERRLA, Negative: Sclera icteric ENT Exam: Negative: Atraumatic, Other ENT Neck Exam: Positive: Supple, Negative: JVD Chest Exam: Positive: Clear to auscultation, Normal air movement Heart Exam: Positive: Normal S1, Normal S2, Rate Normal, Regular Rhythm, Negative: Murmurs, Rubs Abdomen Exam: Positive: Normal bowel sounds, Soft, Negative: Hepatospenomegaly, Tenderness Extremity Exam: Negative: Clubbing, Cyanosis, Edema Skin Exam: Positive: Lesion (swelling appreciated in the left occiput) Neuro Exam: Positive: Normal Speech Psych Exam: Positive: Oriented x 3 (oriented to person, place, year) Assessment /Plan Problems (1) Syncope Status: Acute Problem Text: 09/04 - Telemetry uneventful, NS no longer following. CT stable. EEG, as below, Neg CT C spine, Carotid US without sign ICA stenosis 09/03 -at baseline MS per 09/02 - No further syncope 09/02 EEG right frontal, parietal, temporal and occipital slowing and mild attenuation consistent with focal, cortical, structural, or functional abnormalities. No epileptiform abnormalities were seen Neurosurgery has been following. 09/[address] s fracture 09/02 carotid US s significant ICA stenosis 09/02 ECHO LVEF 65-70%. Grade 1 diastolic dysfunction (2) Intracerebral bleed due to trauma Status: Acute Problem Text: 09/05 - CT head stable on 09/03. nothing more to add per Neurosurgery -Narda 09/04 - Dr Laboy following. Pt receiving PT. 09/03 CT head stable 27 mm IP hematoma slight SAH c/w 09/02 CT, stable neuro exam (3) Dementia Status: Chronic Problem Text: Continue patient on home medications. JFW: current mental status significantly below baseline (4) Depression Status: Chronic Problem Text: Continue patient on home medication. (5) Occipital scalp laceration Status: Acute Problem Text: has 3 michelle in scalp. 1) needs removal in 10-14days 2) no MRI if michelle are metallic Plan/VTE VTE Prophylaxis Ordered?: Yes (SCD TEDs - no anticoagulation due to subdural hematomas) VTE Exclusion Pharmacological: Hemorrhage Plan Therapy: PT Family Medicine Attending Note: Patient seen and examined today; I d/w MIKE High and I agree with her note. Patient denies dizziness or other complaints at present. Neuro exam is WNL. He was transferred to Med/Surg today. Per PT/OT notes, he is requiring only minimal assistance with ambulation and they recommend home with public health for discharge plan. Sitter at bedside states he was able to ambulate to the bathroom without assistance this afternoon. If he continues to do well tonight and tomorrow, we can consider discharge home with Public Health. (KES) VS[facility]O Vital Signs Date Time Temp Pulse Resp B/P Pulse Ox O2 Delivery O2 Flow Rate FiO2 09/05/16 04:00 97.0 73 18 133/75 94 Room Air I&O- Last 24 Hours up to 6 AM 09/05/16 06:00 Intake Total 360 ml Output Total 900 ml Balance -540 ml Laboratory Data 24H LABS Laboratory Tests 2 09/05/16 05:20: Anion Gap 10, Blood Urea Nitrogen 19H, Creatinine 0.81, Sodium Level 141, Potassium Level 3.6, Chloride Level 104, Carbon Dioxide Level 27, Calcium Level 8.8, Glomerular Filtration Rate > 60.0 CBC/BMP Laboratory Tests 09/05/16 05:20 Calcium Level 8.8 09/05/16 05:21 Red Blood Count 4.60, Mean Corpuscular Volume 92.2, Mean Corpuscular Hemoglobin 31.6, Mean Corpuscular Hemoglobin Concent 34.3, Red Cell Distribution Width 12.4 TRINI STEEL PA-C Sep 05, 2016 08:36 JAKE PATINO MD Sep 05, 2016 15:03
[2016-09-05] MEDS: MIRALAX *UNIT DOSE* 17GM PACKET PO SCH ×2 (08:46→20:19)
[2016-09-05] MEDS: SENOKOT S TAB PO SCH ×2 (08:47→20:20)
[2016-09-05] MEDS: MULTIVITAMINS/MINERALS THERAP 1 TAB PO SCH (08:47)
[2016-09-05] MEDS: MEMANTINE 5MG TABLET (NAMENDA) PO SCH ×2 (08:47→20:20)
[2016-09-05] MEDS: SERTRALINE HCL 50 MG TAB PO SCH (08:47)
[2016-09-05 11:25] VITALS: BP 153/75
--- NOTE | 2016-09-05 12:57 | IPN ---
DATE: 09/04/2016 NEUROSURGERY The patient was seen at the bedside today. He is alert. Regarding his orientation, he knows that he is in [place] and that he is in the hospital, although he is unable to identify the name of the hospital. He states that the year is 2012 and that the month is October. He remembers his name and he is able to name children, repeating that he has six. He spoke with his sitter's, nurses Jacey and Zara, who report that the patient has not been eating or drinking and that they have encouraged him to do so. In speaking with the patient, he states that he has no appetite, that he has been trying to eat. According to the nurse, the patient woke up last nigh around 3:00 or 4:00 this morning and became very agitated, thinking that he was at home. He became very disoriented not knowing where he was. States he becomes dizzy on occasion, although this improves when he sits up. Nurse states that the daughter states that he has become more confused since he had fallen down the stairs prior to his admission. Nurse states that the daughter will be up later this afternoon, at which time she will inquire more information about his mental status baseline. The patient denies any pain anywhere. Denies any headache. The patient was pleasant during the examination and conversation. The michelle around his ulceration on the head appear to have no drainage or erythema or any increased pain at the site. Vitals have been stable. The patient has been afebrile. It appears his followup CT scans of the brain have remained stable since his admission. We will continue to monitor the patient. No new recommendations at this time. Recommended that the patient will benefit from inpatient rehabilitation regarding his gait and dizziness therapy.
[2016-09-05] MEDS: DONEPEZIL 5 MG TAB PO SCH (20:20)
[2016-09-05 22:00] VITALS: BP 155/83
[2016-09-05] MEDS ORDERED: LORazepam 0.5 MG TAB PO STA (22:30)
[2016-09-06 06:00] VITALS: BP 120/60
[2016-09-06 06:44] LABS: MEAN CORPUSCULAR HGB CONC 33.4 g/dl (32.0-36.5); MEAN CORPUSCULAR VOLUME 92.8 fl (80.0-96.0); RED CELL DISTRIBUTION WIDTH 12.5 % (11.5-14.5); WHITE BLOOD COUNT 9.9 K/mm3 (4.0-10.0)
[2016-09-06 07:46] LABS: ANION GAP 10 MEQ/L (8-16); BLOOD UREA NITROGEN 23 MG/DL (7-18); CALCIUM LEVEL 8.7 MG/DL (8.8-10.2); CARBON DIOXIDE LEVEL 28 MEQ/L (21-32); CHLORIDE LEVEL 105 MEQ/L (98-107); CREATININE FOR GFR 0.91 MG/DL (0.70-1.30); GLOMERULAR FILTRATION RATE > 60.0 (>35); GLUCOSE, FASTING 92 MG/DL (83-110); POTASSIUM SERUM 4.1 MEQ/L (3.5-5.1); SODIUM LEVEL 143 MEQ/L (136-145)
--- NOTE | 2016-09-06 08:13 | IPNPDOC ---
Subjective Date Seen The patient was seen on 09/06/16. Subjective Chief Complaint/HPI Pt sleeping this morning. Sitter at bedside. Difficult to obtain complete ROS , pt kept telling me he was sleeping. Pulmonary: Denies: Cough, Dyspnea Cardiovascular: Denies: Chest Pain Objective Physical Examination General Exam: Positive: No Acute Distress, Negative: Cooperative Eye Exam: Negative: Sclera icteric ENT Exam: Negative: Atraumatic, Other ENT Neck Exam: Positive: Supple, Negative: JVD Chest Exam: Positive: Clear to auscultation, Normal air movement Heart Exam: Positive: Normal S1, Normal S2, Rate Normal, Regular Rhythm, Negative: Murmurs, Rubs Abdomen Exam: Positive: Normal bowel sounds, Soft, Negative: Hepatospenomegaly, Tenderness Extremity Exam: Negative: Clubbing, Cyanosis, Edema Neuro Exam: Positive: Normal Speech Assessment /Plan Problems (1) Dementia Status: Chronic Problem Text: 09/06 - Not safe per PT. Continue patient on home medications. JFW: current mental status significantly below baseline (2) Syncope Status: Acute Problem Text: 09/04 - Telemetry uneventful, NS no longer following. CT stable. EEG, as below, Neg CT C spine, Carotid US without sign ICA stenosis 09/03 -at baseline MS per 09/02 - No further syncope 09/02 EEG right frontal, parietal, temporal and occipital slowing and mild attenuation consistent with focal, cortical, structural, or functional abnormalities. No epileptiform abnormalities were seen Neurosurgery has been following. 09/[address] s fracture 09/02 carotid US s significant ICA stenosis 09/02 ECHO LVEF 65-70%. Grade 1 diastolic dysfunction (3) Intracerebral bleed due to trauma Status: Acute Problem Text: 09/05 - CT head stable on 09/03. nothing more to add per Neurosurgery -Narda 09/04 - Dr Laboy following. Pt receiving PT. 09/03 CT head stable 27 mm IP hematoma slight SAH c/w 09/02 CT, stable neuro exam (4) Depression Status: Chronic Problem Text: Continue patient on home medication. (5) Occipital scalp laceration Status: Acute Problem Text: has 3 michelle in scalp. 1) needs removal in 10-14days 2) no MRI if michelle are metallic Plan/VTE VTE Prophylaxis Ordered?: Yes (SCD TEDs - no anticoagulation due to subdural hematomas) VTE Exclusion Pharmacological: Hemorrhage Plan Therapy: PT VS, I&O, 24H, Fishbone Vital Signs/I&O Vital Signs Date Time Temp Pulse Resp B/P Pulse Ox O2 Delivery O2 Flow Rate FiO2 09/06/16 06:00 97.7 80 17 120/60 95 Room Air I&O- Last 24 Hours up to 6 AM 09/06/16 06:00 Intake Total 200 ml Output Total 200 ml Balance 0 ml Laboratory Data 24H LABS Laboratory Tests 2 09/06/16 06:24: Anion Gap 10, Blood Urea Nitrogen 23H, Creatinine 0.91, Sodium Level 143, Potassium Level 4.1, Chloride Level 105, Carbon Dioxide Level 28, Calcium Level 8.7L, Glomerular Filtration Rate > 60.0 CBC/BMP Laboratory Tests 09/06/16 06:24 Calcium Level 8.7 L, Red Blood Count 4.66, Mean Corpuscular Volume 92.8, Mean Corpuscular Hemoglobin 31.0, Mean Corpuscular Hemoglobin Concent 33.4, Red Cell Distribution Width 12.5 TRINI STEEL PA-C Sep 06, 2016 08:13
[2016-09-06] MEDS: SERTRALINE HCL 50 MG TAB PO SCH (08:49)
[2016-09-06] MEDS: MULTIVITAMINS/MINERALS THERAP 1 TAB PO SCH (08:49)
[2016-09-06] MEDS: SENOKOT S TAB PO SCH ×2 (08:49→20:11)
[2016-09-06] MEDS: MEMANTINE 5MG TABLET (NAMENDA) PO SCH ×2 (08:50→20:10)
[2016-09-06] MEDS: MIRALAX *UNIT DOSE* 17GM PACKET PO SCH ×2 (08:50→20:10)
[2016-09-06 11:33] VITALS: BP 141/85
[2016-09-06 13:53] VITALS: BP 124/74
[2016-09-06] MEDS: DONEPEZIL 5 MG TAB PO SCH (20:10)
[2016-09-06] MEDS: ATORVASTATIN 20 MG TAB PO SCH (20:11)
[2016-09-06 22:00] VITALS: BP 119/65
[2016-09-07 06:00] VITALS: BP 138/63
[2016-09-07 07:04] LABS: MEAN CORPUSCULAR HEMOGLOBIN 32.1 pg (27.0-33.0); MEAN CORPUSCULAR HGB CONC 33.7 g/dl (32.0-36.5); MEAN CORPUSCULAR VOLUME 95.2 fl (80.0-96.0); RED CELL DISTRIBUTION WIDTH 12.6 % (11.5-14.5); WHITE BLOOD COUNT 8.2 K/mm3 (4.0-10.0)
[2016-09-07 07:21] LABS: ANION GAP 8 MEQ/L (8-16); BLOOD UREA NITROGEN 20 MG/DL (7-18); CALCIUM LEVEL 8.4 MG/DL (8.8-10.2); CARBON DIOXIDE LEVEL 26 MEQ/L (21-32); CHLORIDE LEVEL 107 MEQ/L (98-107); CREATININE FOR GFR 0.87 MG/DL (0.70-1.30); GLOMERULAR FILTRATION RATE > 60.0 (>35); GLUCOSE, FASTING 82 MG/DL (83-110); POTASSIUM SERUM 3.9 MEQ/L (3.5-5.1); SODIUM LEVEL 141 MEQ/L (136-145)
[2016-09-07] MEDS: SENOKOT S TAB PO SCH ×2 (09:13→20:24)
[2016-09-07] MEDS: SERTRALINE HCL 50 MG TAB PO SCH (09:13)
[2016-09-07] MEDS: MIRALAX *UNIT DOSE* 17GM PACKET PO SCH ×2 (09:13→20:24)
[2016-09-07] MEDS: MEMANTINE 5MG TABLET (NAMENDA) PO SCH ×2 (09:13→20:24)
[2016-09-07] MEDS: MULTIVITAMINS/MINERALS THERAP 1 TAB PO SCH (09:14)
--- NOTE | 2016-09-07 12:42 | IPNPDOC ---
Subjective Date Seen The patient was seen on 09/07/16. Subjective Chief Complaint/HPI The patient is a 86-year-old male admitted with a reason for visit of Syncope. Events since last encounter Offers no c/o. continue to progress with PT/OT. Objective Physical Examination General Exam: Positive: No Acute Distress, Negative: Cooperative Eye Exam: Negative: Sclera icteric ENT Exam: Negative: Atraumatic, Other ENT Neck Exam: Positive: Supple, Negative: JVD Chest Exam: Positive: Clear to auscultation, Normal air movement Heart Exam: Positive: Normal S1, Normal S2, Rate Normal, Regular Rhythm, Negative: Murmurs, Rubs Abdomen Exam: Positive: Normal bowel sounds, Soft, Negative: Hepatospenomegaly, Tenderness Extremity Exam: Negative: Clubbing, Cyanosis, Edema Neuro Exam: Positive: Normal Speech Assessment /Plan Problems (1) Dementia Status: Chronic Problem Text: 09/07 - Patient has yet to be seen by PT today - will need to them to assess for discharge planning; if they do not feel he is safe to go home tomorrow, then we need to consider short-term rehab placement - I spoke with his daughter about this today and she was agreeable to this. (KES) 09/06 - Not safe per PT. Continue patient on home medications. (2) Syncope Status: Acute Problem Text: 09/07 - Patient continues to deny dizziness to providers but per PT notes, he c/o this when they try to work with him; he has had no further episodes of syncope; this may be related to his intracerebral hemorrhage. 09/04 - Telemetry uneventful, NS no longer following. CT stable. EEG, as below , Neg CT C spine, Carotid US without sign ICA stenosis 09/03 -at baseline MS per 09/02 - No further syncope 09/02 EEG right frontal, parietal, temporal and occipital slowing and mild attenuation consistent with focal, cortical, structural, or functional abnormalities. No epileptiform abnormalities were seen Neurosurgery has been following. 09/[address] s fracture 09/02 carotid US s significant ICA stenosis 09/02 ECHO LVEF 65-70%. Grade 1 diastolic dysfunction (3) Intracerebral bleed due to trauma Status: Acute Problem Text: 09/05 - CT head stable on 09/03. nothing more to add per Neurosurgery -Narda 09/04 - Dr Kidwai following. Pt receiving PT. 09/03 CT head stable 27 mm IP hematoma slight SAH c/w 09/02 CT, stable neuro exam (4) Depression Status: Chronic Problem Text: Continue patient on home medication. (5) Occipital scalp laceration Status: Acute Problem Text: has 3 michelle in scalp. 1) needs removal in 10-14days 2) no MRI if michelle are metallic Plan/VTE VTE Prophylaxis Ordered?: Yes (SCD TEDs - no anticoagulation due to subdural hematomas) VTE Exclusion Pharmacological: Hemorrhage Plan Therapy: PT Family medicine attending note: I saw Mr. Reza this morning and I agree with Yuridia Santana's note above with additions as noted. I will talk to his nurse to ensure that he is seen by PT today to determine discharge plans. (KES) VS, I&O, 24H, Fishbone Vital Signs/I&O Vital Signs Date Time Temp Pulse Resp B/P Pulse Ox O2 Delivery O2 Flow Rate FiO2 09/07/16 06:00 97.3 59 17 138/63 97 Room Air I&O- Last 24 Hours up to 6 AM 09/07/16 06:00 Intake Total 850 ml Output Total 0 ml Balance 850 ml Laboratory Data 24H LABS Laboratory Tests 2 09/07/16 06:31: Anion Gap 8, Blood Urea Nitrogen 20H, Creatinine 0.87, Sodium Level 141, Potassium Level 3.9, Chloride Level 107, Carbon Dioxide Level 26, Calcium Level 8.4L, Glomerular Filtration Rate > 60.0 CBC/BMP Laboratory Tests 09/07/16 06:31 Calcium Level 8.4 L, Red Blood Count 4.61, Mean Corpuscular Volume 95.2, Mean Corpuscular Hemoglobin 32.1, Mean Corpuscular Hemoglobin Concent 33.7, Red Cell Distribution Width 12.6 Yuridia Santana Sep 07, 2016 12:42 JAKE PATINO MD Sep 07, 2016 14:30
[2016-09-07 14:00] VITALS: BP 133/66
[2016-09-07] MEDS: DONEPEZIL 5 MG TAB PO SCH (20:24)
[2016-09-07 22:00] VITALS: BP 127/73
[2016-09-08 06:00] VITALS: BP 129/62
[2016-09-08 07:22] LABS: MEAN CORPUSCULAR HEMOGLOBIN 31.4 pg (27.0-33.0); MEAN CORPUSCULAR HGB CONC 33.8 g/dl (32.0-36.5); RED CELL DISTRIBUTION WIDTH 12.6 % (11.5-14.5); WHITE BLOOD COUNT 8.4 K/mm3 (4.0-10.0)
[2016-09-08 07:28] LABS: ANION GAP 8 MEQ/L (8-16); BLOOD UREA NITROGEN 22 MG/DL (7-18); CALCIUM LEVEL 8.9 MG/DL (8.8-10.2); CARBON DIOXIDE LEVEL 29 MEQ/L (21-32); CHLORIDE LEVEL 105 MEQ/L (98-107); CREATININE FOR GFR 1.14 MG/DL (0.70-1.30); GLOMERULAR FILTRATION RATE > 60.0 (>35); GLUCOSE, FASTING 93 MG/DL (83-110); POTASSIUM SERUM 4.2 MEQ/L (3.5-5.1); SODIUM LEVEL 142 MEQ/L (136-145)
[2016-09-08 08:40] VITALS: BP 134/67
--- NOTE | 2016-09-08 08:52 | IPNPDOC ---
Subjective Date Seen The patient was seen on 09/08/16. Subjective Chief Complaint/HPI Pt this morning without new concerns. He denies pain. Nursing requests nutritional supplement as the pt doesn't eat much for meals. General: Denies: Fatigue Constitutional: Denies: Chills, Fever Pulmonary: Denies: Cough, Dyspnea Cardiovascular: Denies: Chest Pain, Palpitations Gastrointestinal: Denies: Diarrhea, Nausea, Vomiting Psych: Reports: Mood Normal Objective Physical Examination General Exam: Positive: Alert, No Acute Distress, Negative: Cooperative Neck Exam: Positive: Supple, Negative: JVD Chest Exam: Positive: Clear to auscultation, Normal air movement Heart Exam: Positive: Normal S1, Normal S2, Rate Normal, Regular Rhythm, Negative: Murmurs, Rubs Abdomen Exam: Positive: Normal bowel sounds, Soft, Negative: Hepatospenomegaly, Tenderness Extremity Exam: Negative: Clubbing, Cyanosis, Edema Neuro Exam: Positive: Normal Speech Psych Exam: Negative: Oriented x 3 (oriented to person and place, believes year is 2012.) Assessment /Plan Problems (1) Dementia Status: Chronic Problem Text: 09/08 - Not safe yet per PT, Pt's working on coordinating home care, plans to bring pt home. 09/07 - Patient has yet to be seen by PT today - will need to them to assess for discharge planning; if they do not feel he is safe to go home tomorrow, then we need to consider short-term rehab placement - I spoke with his daughter about this today and she was agreeable to this. (KES) 09/06 - Not safe per PT. Continue patient on home medications. (2) Syncope Status: Acute Problem Text: 09/07 - Patient continues to deny dizziness to providers but per PT notes, he c/o this when they try to work with him; he has had no further episodes of syncope; this may be related to his intracerebral hemorrhage. 09/04 - Telemetry uneventful, NS no longer following. CT stable. EEG, as below , Neg CT C spine, Carotid US without sign ICA stenosis 09/03 -at baseline MS per 09/02 - No further syncope 09/02 EEG right frontal, parietal, temporal and occipital slowing and mild attenuation consistent with focal, cortical, structural, or functional abnormalities. No epileptiform abnormalities were seen Neurosurgery has been following. 3/[address] s fracture 09/02 carotid US s significant ICA stenosis 09/02 ECHO LVEF 65-70%. Grade 1 diastolic dysfunction (3) Intracerebral bleed due to trauma Status: Acute Problem Text: 09/05 - CT head stable on 09/03. nothing more to add per Neurosurgery -Narda 09/04 - Dr Laboy following. Pt receiving PT. 09/03 CT head stable 27 mm IP hematoma slight SAH c/w 09/02 CT, stable neuro exam (4) Depression Status: Chronic Problem Text: Continue patient on home medication. (5) Occipital scalp laceration Status: Acute Problem Text: has 3 michelle in scalp. 1) needs removal in 10-14days 2) no MRI if michelle are metallic (6) Encephalopathy Status: Acute Problem Specific Plan: Monitor Clinically Problem Text: s/o closed head injury Plan/VTE VTE Prophylaxis Ordered?: Yes (SCD TEDs - no anticoagulation due to subdural hematomas) VTE Exclusion Pharmacological: Hemorrhage Plan Therapy: PT Family Medicine Attending Note: Patient seen and examined this afternoon; I d/w MARGARET High and I agree with her note. Continue to follow-up PT recommendations. I discussed his status with his and daughter this afternoon - his states she is ready to accept him back home once PT clears him. (KES). VS, I&O, 24H, Fishbone Vital Signs/I&O Vital Signs Date Time Temp Pulse Resp B/P Pulse Ox O2 Delivery O2 Flow Rate FiO2 09/08/16 08:40 96.0 68 16 134/67 96 Room Air I&O- Last 24 Hours up to 6 AM 09/08/16 05:59 Intake Total 160 ml Balance 160 ml Laboratory Data 24H LABS Laboratory Tests 2 09/08/16 06:59: Anion Gap 8, Blood Urea Nitrogen 22H, Creatinine 1.14, Sodium Level 142, Potassium Level 4.2, Chloride Level 105, Carbon Dioxide Level 29, Calcium Level 8.9, Glomerular Filtration Rate > 60.0 CBC/BMP Laboratory Tests 09/08/16 06:59 Calcium Level 8.9, Red Blood Count 4.72, Mean Corpuscular Volume 93.0, Mean Corpuscular Hemoglobin 31.4, Mean Corpuscular Hemoglobin Concent 33.8, Red Cell Distribution Width 12.6 TRINI STEEL PA-C Sep 08, 2016 08:52 JAKE PATINO MD Sep 08, 2016 15:22
[2016-09-08] MEDS: MULTIVITAMINS/MINERALS THERAP 1 TAB PO SCH (09:32)
[2016-09-08] MEDS: MEMANTINE 5MG TABLET (NAMENDA) PO SCH ×2 (09:32→20:15)
[2016-09-08] MEDS: MIRALAX *UNIT DOSE* 17GM PACKET PO SCH ×2 (09:32→20:14)
[2016-09-08] MEDS: SENOKOT S TAB PO SCH ×2 (09:32→20:15)
[2016-09-08] MEDS: SERTRALINE HCL 50 MG TAB PO SCH (09:32)
[2016-09-08 10:39] VITALS: BP 117/71
[2016-09-08 14:00] VITALS: BP 122/69
[2016-09-08] MEDS: DONEPEZIL 5 MG TAB PO SCH (20:15)
[2016-09-08] MEDS: ATORVASTATIN 20 MG TAB PO SCH (20:15)
[2016-09-08 22:00] VITALS: BP 117/62
--- NOTE | 2016-09-08 22:52 | IPN ---
DATE: 09/07/2016 Patient was seen at the bed side today, he is accompanied by the sitter and his daughter. He appears to be pleasant and sitting comfortably in his bed watching television. He is participating in conversation appropriately. He is alert, not oriented. He is unable to tell me the year or the month correctly. He knows that he is in the hospital but states that it is not [facility]. His daughter states that this typically his baseline. The sitter states that patient will become dizzy on occasion. Vitals have been stable. Patient is afebrile. Labs are noted. PLAN: Continue pushing fluids. We will continue to monitor patient.
[2016-09-09 06:00] VITALS: BP 104/53
[2016-09-09] MEDS: MIRALAX *UNIT DOSE* 17GM PACKET PO SCH ×2 (09:00→19:57)
[2016-09-09 09:45] VITALS: BP 113/56
[2016-09-09] MEDS: MEMANTINE 5MG TABLET (NAMENDA) PO SCH ×2 (09:48→19:57)
[2016-09-09] MEDS: MULTIVITAMINS/MINERALS THERAP 1 TAB PO SCH (09:48)
[2016-09-09] MEDS: SENOKOT S TAB PO SCH ×2 (09:48→19:57)
[2016-09-09] MEDS: SERTRALINE HCL 50 MG TAB PO SCH (09:49)
[2016-09-09 14:00] VITALS: BP 106/66
[2016-09-09] MEDS: DONEPEZIL 5 MG TAB PO SCH (19:57)
[2016-09-09 22:00] VITALS: BP 129/84
[2016-09-10 06:00] VITALS: BP 126/65
[2016-09-10] MEDS: MIRALAX *UNIT DOSE* 17GM PACKET PO SCH ×2 (09:00→20:20)
[2016-09-10] MEDS: SENOKOT S TAB PO SCH ×2 (09:29→20:21)
[2016-09-10] MEDS: MEMANTINE 5MG TABLET (NAMENDA) PO SCH ×2 (09:29→20:20)
[2016-09-10] MEDS: SERTRALINE HCL 50 MG TAB PO SCH (09:29)
[2016-09-10] MEDS: MULTIVITAMINS/MINERALS THERAP 1 TAB PO SCH (09:30)
--- NOTE | 2016-09-10 13:14 | DSES ---
DATE OF ADMISSION: 09/02/2016 DATE OF DISCHARGE: 09/09/2016 Discharged to assisted facility (SNF). PRIMARY CARE PROVIDER: Dr. Bhat ATTENDING TODAY: Dr. Sushma Grady HISTORY: This is an 85-year-old male who has a history of dementia and falls who was found by his at the bottom of the stairs in a recliner with blood on his head and clothing. He had apparently endured some injuries secondary to a fall. Patient was unable to recall any of the events surrounding the injury and denied pain at the time of presentation. He also denied any lightheadedness or dizziness. He was admitted to the progressive care unit on telemetry for further evaluation and workup. CT of the brain was obtained suggestive of large focal hemorrhagic contusion to the right frontal lobe, subdural hematoma, soft tissue swelling in the occipital region, other findings consistent with moderate age-related atrophy and chronic small vessel ischemic disease. Neurosurgery was consulted and recommended followup CT scans. EEG was obtained which suggested stage 1 and 2 sleep abnormal due to due the presence of right frontal, parietal, temporal and occipital slowing, and mild attenuation consistent with focal, cortical, structural or functional abnormalities. No epileptic abnormalities were seen. Followup imaging was conducted on 09/02 and 09/03 which suggested that the hematoma had slightly increased on and stability is recognized on 09/03. He also underwent CT of the cervical spine which was without any acute pathology. Ultrasound of his carotids suggested bilateral luminal narrowing of less than 50%. During his hospitalization, he has remained medically stable although he has remained pleasantly confused. His and family are working on coordination of 24-hour care at home. He is also undergoing physical therapy, who feels as though at this point he is not yet safe to return home. DISCHARGE DIAGNOSES: 1. Fall. 2. Syncope. 3. Intracerebral bleed due to trauma. 4. Depression. 5. Occipital scalp laceration. He has michelle which can be removed in 7-10 days; these were placed on 09/01/2016. 6. Encephalopathy secondary to closed head injury. DISCHARGE MEDICATIONS AND PLAN: Will be summarized at time of discharge from the hospital.
[2016-09-10 14:00] VITALS: BP 120/60
[2016-09-10] MEDS: DONEPEZIL 5 MG TAB PO SCH (20:20)
[2016-09-10] MEDS: ATORVASTATIN 20 MG TAB PO SCH (20:21)
[2016-09-10 20:26] VITALS: BP 114/58
[2016-09-11 06:00] VITALS: BP 123/55
[2016-09-11] MEDS: SENOKOT S TAB PO SCH ×2 (09:00→21:46)
[2016-09-11] MEDS: MIRALAX *UNIT DOSE* 17GM PACKET PO SCH ×2 (09:00→21:45)
[2016-09-11] MEDS: MULTIVITAMINS/MINERALS THERAP 1 TAB PO SCH (10:01)
[2016-09-11] MEDS: SERTRALINE HCL 50 MG TAB PO SCH (10:02)
[2016-09-11] MEDS: MEMANTINE 5MG TABLET (NAMENDA) PO SCH ×2 (10:02→21:45)
[2016-09-11 14:00] VITALS: BP 120/60
[2016-09-11] MEDS: DONEPEZIL 5 MG TAB PO SCH (21:46)
[2016-09-11 22:00] VITALS: BP 114/59
[2016-09-12 06:00] VITALS: BP 127/60
[2016-09-12] MEDS: SENOKOT S TAB PO SCH (10:10)
[2016-09-12] MEDS: MULTIVITAMINS/MINERALS THERAP 1 TAB PO SCH (10:10)
[2016-09-12] MEDS: SERTRALINE HCL 50 MG TAB PO SCH (10:10)
[2016-09-12] MEDS: MIRALAX *UNIT DOSE* 17GM PACKET PO SCH (10:10)
[2016-09-12] MEDS: MEMANTINE 5MG TABLET (NAMENDA) PO SCH (10:11)
[2016-09-12 14:00] VITALS: BP 113/60
== END 2016-09-12 15:45 | disposition home or self-care (01) | DRG 82 ==
LOC: EDBD 22:08 → M ED 09-02 00:29 → M ED INP 09-02 01:59 → M PCU 09-02 03:21 → M MS5PR 09-05 11:20
PROVIDERS: ADMIT Internal Medicine; ATTEND Family Medicine
DX: S06.5X9A Traumatic subdural hemorrhage with loss of consciousness of unspecified duration, initial encounter (principal); G93.40 Encephalopathy, unspecified; R41.2 Retrograde amnesia; R55 Syncope and collapse; F32.9 Major depressive disorder, single episode, unspecified; E78.5 Hyperlipidemia, unspecified; F03.90 Unspecified dementia, unspecified severity, without behavioral disturbance, psychotic disturbance, mood disturbance, and anxiety; S01.01XA Laceration without foreign body of scalp, initial encounter; W10.8XXA Fall (on) (from) other stairs and steps, initial encounter; Y92.018 Other place in single-family (private) house as the place of occurrence of the external cause; Y93.01 Activity, walking, marching and hiking; Y99.9 Unspecified external cause status; Z91.81 History of falling

== ENCOUNTER 2016-09-22 02:14 | Emergency (ER) | payer MEDICARE, BC, OTHER ==
[~2016-09-22 02:14] MED LIST changes: +DOCU100C PO; +MIRA3350 PO
[2016-09-22 04:25] VITALS: BP 141/80
--- NOTE | 2016-09-22 08:23 | REP ---
Clinical: Trauma. Technique: Portable AP view of the left shoulder. Findings: No obvious acute fracture dislocation. Acromioclavicular and glenohumeral joints are relatively normal for age. No obvious significant periarticular calcifications. No subcutaneous emphysema or radiodense foreign body. Impression: Normal single view portable left shoulder. Signed by Rakan Leonardo MD 09/22/2016 08:14 A
== END 2016-09-22 04:25 | disposition home or self-care (01) ==
LOC: EDBD 02:14 → M ED 03:41
DX: S40.012A Contusion of left shoulder, initial encounter (principal); W01.0XXA Fall on same level from slipping, tripping and stumbling without subsequent striking against object, initial encounter; Y92.091 Bathroom in other non-institutional residence as the place of occurrence of the external cause; Y93.9 Activity, unspecified; Y99.9 Unspecified external cause status; F03.90 Unspecified dementia, unspecified severity, without behavioral disturbance, psychotic disturbance, mood disturbance, and anxiety; Z79.899 Other long term (current) drug therapy

== ENCOUNTER 2016-09-24 18:01 | Inpatient (IN) | payer MEDICARE, BC, OTHER ==
[~2016-09-24] VITALS: Ht 172.7 cm; Wt 63.5 kg
[2016-09-24] MEDS ORDERED: NS 500 ML IV ONE (18:15)
[2016-09-24 18:54] LABS: BASO # 0.1 K/mm3 (0.0-0.2); BASO % 0.8 % (0.0-1.0); EOS # 0.2 K/mm3 (0.0-0.50); EOS % 2.9 % (0.0-3.0); LARGE UNSTAINED CELL # 0.2 K/mm3 (0.0-0.4); LARGE UNSTAINED CELL % 2.2 % (0.0-4.0); LYMPH # 1.5 K/mm3 (1.5-4.5); LYMPH % 18.8 % (24.0-44.0); MEAN CORPUSCULAR HEMOGLOBIN 31.2 pg (27.0-33.0); MEAN CORPUSCULAR HGB CONC 32.6 g/dl (32.0-36.5); MEAN CORPUSCULAR VOLUME 95.8 fl (80.0-96.0); MONO # 0.5 K/mm3 (0.0-0.8); MONO % 7.4 % (0.0-5.0); NEUTROPHILS # 4.8 K/mm3 (1.8-7.7); PLATELET COUNT, AUTOMATED 208 k/mm3 (150-450); RED CELL DISTRIBUTION WIDTH 12.5 % (11.5-14.5)
--- NOTE | 2016-09-24 19:17 | REP ---
Clinical: Altered mental status . Comparison: 09/01/2016 . Findings: The mediastinum and cardiac silhouette are stable and within normal limits for portable technique. The lung whitlock are clear without acute consolidation, effusion, or pneumothorax. Skeletal structures are intact. Impression: Normal portable chest x-ray Signed by Rakan Leonardo MD 09/24/2016 07:09 P
--- NOTE | 2016-09-24 19:21 | REP ---
Clinical: Altered mental status. Comparison: 09/03/2016 . Findings: Right frontal lobe hemorrhage and surrounding edema appears mildly improved. Stable age-related atrophy and microvascular ischemic changes are then appreciated. The ventricles and sulci are symmetric. Saeed-white differentiation is maintained. There is no evidence for new intracranial hemorrhage, mass/mass effect, pathology or infarction. No extra-axial fluid collection. Calvarium is intact. Small amount of fluid noted in the maxillary sinuses nonspecific. Impression: 1. Right frontal lobe hemorrhage and surrounding edema appears moderately improved compared to 09/03/2016. 2. Age related atrophy and microvascular ischemic changes. 3. No new intracranial hemorrhage, infarction, or mass/mass effect. Signed by Rakan Leonardo MD 09/24/2016 07:13 P
--- NOTE | 2016-09-24 19:54 | ECGEPIP ---
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
[2016-09-24 20:06] LABS: ALBUMIN 3.6 GM/DL (3.2-5.2); ALBUMIN/GLOBULIN RATIO 1.29 (1.00-1.93); ALKALINE PHOSPHATASE 88 U/L (45-117); ALT/SGPT 20 U/L (12-78); ANION GAP 4 MEQ/L (8-16); AST/SGOT 13 U/L (15-37); BILIRUBIN,DIRECT 0.1 MG/DL (0.0-0.2); BILIRUBIN,TOTAL 0.4 MG/DL (0.2-1.0); BLOOD UREA NITROGEN 17 MG/DL (7-18); CALCIUM LEVEL 8.5 MG/DL (8.8-10.2); CARBON DIOXIDE LEVEL 33 MEQ/L (21-32); CHLORIDE LEVEL 108 MEQ/L (98-107); GLOMERULAR FILTRATION RATE > 60.0 (>35); GLUCOSE, FASTING 90 MG/DL (83-110); POTASSIUM SERUM 4.3 MEQ/L (3.5-5.1); SODIUM LEVEL 145 MEQ/L (136-145); TOTAL PROTEIN 6.4 GM/DL (6.4-8.2)
[2016-09-24] MEDS ORDERED: [UNRECOGNIZED DRUG - REMARK] PO (23:33)
[2016-09-25] MEDS ORDERED: NS 1,000 ML IV SCH (00:14)
[2016-09-25] MEDS ORDERED: ONDANSETRON 4MG/2ML VIAL (J2405) IV PRN (00:15)
--- NOTE | 2016-09-25 01:09 | HPEPDOC ---
Medical History and Physical Date of Admission Sep 25, 2016 at 00:14 History and Physical PRIMARY CARE PROVIDER: ATTENDING: Kerline Thurman MD CHIEF COMPLAINT: Change in mental status and agitation HISTORY OF PRESENT ILLNESS: This is a 86-year-old male with past medical history of hyperlipidemia, BPH, GERD, dementia, depression, frequent falls who was recently admitted for a fall with a notable intracranial hemorrhage. Patient was subsequently managed and discharged home as he did well with physical therapy. states that since then the patient has been increasingly agitated and aggressive as he is unable to remember and do the things he used to do. He is unable to drive and wants to go outside alone. Gets upset and aggressive causing bruises on his . Had been seen by Dr. Bhat on Monday with recommendations for placement. The patient was also noted to have another fall in the bathtub however did not have any head trauma or syncopal episode. The is concerned about worsening behavior, especially in the middle the night and states she's unable to take care of him at home. PAST MEDICAL HISTORY: As per HPI PAST SURGICAL HISTORY: Cataract surgery SOCIAL HISTORY: Denies tobacco, alcohol, illicit drug use. FAMILY HISTORY: Noncontributory ALLERGIES: Please see below. REVIEW OF SYSTEMS: HEENT: Denies sore throat/headache CARDIOVASCULAR: Denies chest pain/palpitations RESPIRATORY: No shortness of breath/cough GASTROINTESTINAL: denies nausea/vomiting GENITOURINARY: Denies dysuria/urinary urgency. MUSCULOSKELETAL: Denies myalgias/arthralgias NEUROLOGICAL: Denies any focal weakness Rest of ROS negative. HOME MEDICATIONS: Please see below. PHYSICAL EXAMINATION: Vitals: (see below) General: No acute distress, laying comfortably in bed. HEENT: Moist mucous membranes. Neck: No JVD or lymphadenopathy Cardiac: RRR, No murmurs Pulm: Clear to auscultation b/l. No wheezing, rhonchi Abd: NT/ND + BS Ext: No edema or cyanosis Neuro: Strength 5/5 BUE and BLE. CN 2-12 intact. LABORATORY DATA: See below. IMAGING: CXR 09/24/16 Impression: Normal portable chest x-ray CT Head 09/24/16 Impression:1. Right frontal lobe hemorrhage and surrounding edema appears moderately improved compared to 09/03/2016. 2. Age related atrophy and microvascular ischemic changes. 3. No new intracranial hemorrhage, infarction, or mass/mass effect. MICROBIOLOGY: Please see below. ASSESSMENT/PLAN: 1. Worsening dementia, with recent Frontal lobe hemorrhage. CT Head notable for significant improvement of the hemorrhage/edema. Patient has no focal deficits on neuro exam. states his behavior is worse at home and becomes aggressive at home. is seeking possible placement. Labs are all within normal limits , with mild contraction alkalosis for which the patient was placed on gentle hydration. We'll obtain a PFS consult. 2. Hyperlipidemia- on statin 3. Frequent falls- physical therapy 4. DVT prophy SCDs. Patient was followed by Dr. Bhat starting 09/25/69 7 AM. Vital Signs Vital Signs Date Time Temp Pulse Resp B/P Pulse Ox O2 Delivery O2 Flow Rate FiO2 09/24/16 18:11 98.4 71 18 132/63 97 Room Air Laboratory Data Labs 24H Laboratory Tests 2 09/24/16 18:26: Ammonia 27, White Blood Count 7.0, Red Blood Count 4.57, Hemoglobin 14.3, Hematocrit 43.8, Mean Corpuscular Volume 95.8, Mean Corpuscular Hemoglobin 31.2 , Mean Corpuscular Hemoglobin Concent 32.6, Red Cell Distribution Width 12.5, Platelet Count 208, Neutrophils (%) (Auto) 68.0H, Lymphocytes (%) (Auto) 18.8L, Monocytes (%) (Auto) 7.4H, Eosinophils (%) (Auto) 2.9, Basophils (%) (Auto) 0.8 , Neutrophils # (Auto) 4.8, Lymphocytes # (Auto) 1.5, Monocytes # (Auto) 0.5, Eosinophils # (Auto) 0.2, Basophils # (Auto) 0.1, Lactic Acid Level 1.3, Large Unclassified Cells # 0.2, Large Unclassified Cells % 2.2, Urine Amorphous Sediment , Urine Appearance CLEAR, Urine Color YELLOW, Urine pH 5.0, Urine Specific [place] 1.019, Urine Protein NEGATIVE, Urine Glucose (UA) NEGATIVE, Urine Ketones TRACEH, Urine Urobilinogen 0.2, Urine Bilirubin NEGATIVE, Urine Leukocyte Esterase NEGATIVE, Urine Bacteria (Auto) NEGATIVE, Urine Blood NEGATIVE, Urine Calcium Carbonate Cryst(Auto) , Urine Calcium Oxalate Cryst ( Auto) , Urine Calcium Phosphate Nayely (Auto) , Urine Cellular Casts , Urine Cystine Crystals , Urine Granular Casts (Auto) , Urine Hyaline Casts (Auto) 0, Urine Leucine Crystals , Urine Mucus (Auto) MODERATE, Urine Nitrite NEGATIVE, Urine Oval Fat Bodies (Auto) , Urine RBC (Auto) 1, Urine Renal Epithelial Cells , Urine Sperm (Auto) , Urine Squamous Epithelial Cells 0, Urine Transitional Epithelial Cells , Urine Trichomonas (Auto) , Urine Triple Phosphate Cryst (Auto ) , Urine Tyrosine Crystals , Urine Uric Acid Crystals (Auto) , Urine WBC (Auto ) 1, Urine Waxy Casts (Auto) , Urine Yeast-Like Cells (Auto) 09/24/16 19:14: Aspartate Amino Transf (AST/SGOT) 13L, Alanine Aminotransferase (ALT/SGPT) 20, Alkaline Phosphatase 88, Total Bilirubin 0.4, Direct Bilirubin 0.1, Albumin 3.6 , Albumin/Globulin Ratio 1.29, Anion Gap 4L, Calcium Level 8.5L, Glomerular Filtration Rate > 60.0, Thyroid Stimulating Hormone (TSH) 3.210, Total Protein 6.4 CBC/BMP Laboratory Tests 09/24/16 18:26 Red Blood Count 4.57, Mean Corpuscular Volume 95.8, Mean Corpuscular Hemoglobin 31.2, Mean Corpuscular Hemoglobin Concent 32.6, Red Cell Distribution Width 12.5 , Neutrophils (%) (Auto) 68.0 H, Lymphocytes (%) (Auto) 18.8 L, Monocytes (%) ( Auto) 7.4 H, Eosinophils (%) (Auto) 2.9, Basophils (%) (Auto) 0.8, Neutrophils # (Auto) 4.8, Lymphocytes # (Auto) 1.5, Monocytes # (Auto) 0.5, Eosinophils # ( Auto) 0.2, Basophils # (Auto) 0.1 09/24/16 19:14 Home Medications Scheduled Atorvastatin Calcium (Lipitor) 20 Mg Tab 10 MG PO Q2D AT QHS Donepezil Hydrochloride (Aricept) 10 Mg Tab 5 MG PO QHS Memantine Hydrochloride (Namenda) 10 Mg Tab 10 MG PO BID Multivitamins *[facility] STOCKED* (Thera M Plus *[facility] STOCKED*) 1 Tab Tab 1 TAB PO DAILY Sertraline Hcl (Sertraline HCl) 50 Mg Tab 50 MG PO DAILY Scheduled PRN ([Unknown Med ]) PO BID PRN PRN ANXIETY/AGITATION *NEW MED FOR AGITATION/ANXIETY. WILL CALL PHARMACY TO VERIFY Docusate Sodium (Docusate Sodium) 100 Mg Cap 100 MG PO QHS PRN PRN CONSTIPATION Polyethylene Glycol (Miralax) 1 Pow Pow 17 GM PO DAILY PRN PRN CONSTIPATION dilute in 8 ounces of water or juice Allergies Coded Allergies: No Known Allergies (Unverified , 03/08/15) KERLINE THURMAN MD Sep 25, 2016 01:09
[2016-09-25 02:45] VITALS: BP 120/71
--- NOTE | 2016-09-25 04:09 | IPNPDOC ---
Text Note Date of Service The patient was seen on 09/25/16. NOTE Hospitalist was notified patient became agitated and confused, he doesn't know where he is and believed he was in a hotel and would like to leave. He also twisted one of our nursing staff's arm and was very aggressive. Therefore, will give one time dose of Haldol 2mg IM for agitation. Patient has been discussed with Dr. Thurman. VS,Luz, I+O VS, Luz, I+O Laboratory Tests 09/24/16 18:26 Red Blood Count 4.57, Mean Corpuscular Volume 95.8, Mean Corpuscular Hemoglobin 31.2, Mean Corpuscular Hemoglobin Concent 32.6, Red Cell Distribution Width 12.5 , Neutrophils (%) (Auto) 68.0 H, Lymphocytes (%) (Auto) 18.8 L, Monocytes (%) ( Auto) 7.4 H, Eosinophils (%) (Auto) 2.9, Basophils (%) (Auto) 0.8, Neutrophils # (Auto) 4.8, Lymphocytes # (Auto) 1.5, Monocytes # (Auto) 0.5, Eosinophils # ( Auto) 0.2, Basophils # (Auto) 0.1 09/24/16 19:14 Vital Signs Date Time Temp Pulse Resp B/P Pulse Ox O2 Delivery O2 Flow Rate FiO2 09/25/16 02:45 97.7 63 20 120/71 93 09/24/16 18:11 Room Air SHELLJINA Sep 25, 2016 04:09 KERLINE THURMAN MD Oct 02, 2016 19:23
[2016-09-25] MEDS ORDERED: HALOPERIDOL 5 MG/ML VIAL (J1630) IM ONE (04:15)
[2016-09-25 06:00] VITALS: BP 133/63
[2016-09-25] MEDS: MEMANTINE 5MG TABLET (NAMENDA) PO SCH ×2 (09:41→21:13)
[2016-09-25] MEDS: MULTIVITAMINS/MINERALS THERAP 1 TAB PO SCH (09:41)
[2016-09-25] MEDS: SERTRALINE HCL 50 MG TAB PO SCH (09:42)
[2016-09-25 10:00] VITALS: BP 157/80
--- NOTE | 2016-09-25 13:24 | IPNPDOC ---
Subjective Date Seen The patient was seen on 09/25/16. Subjective Chief Complaint/HPI The patient is a 86-year-old male admitted with a reason for visit of Ams/ Agitation. Events since last encounter feels "great". reports that the food at lunch was delicious Constitutional: Denies: Chills, Fever Pulmonary: Denies: Cough, Dyspnea Cardiovascular: Denies: Chest Pain, Orthopnea, Palpitations Gastrointestinal: Denies: Abdominal Pain, Constipation, Diarrhea, Nausea, Vomiting Objective Physical Examination General Exam: Positive: Alert (Sitting up at bedside. Pleasantly confused. Thought he was out late last night with his and his father. ), No Acute Distress Chest Exam: Positive: Clear to auscultation, Normal air movement Heart Exam: Positive: Rate Normal, Negative: Murmurs Abdomen Exam: Positive: Normal bowel sounds, Soft, Negative: Tenderness Extremity Exam: Negative: Edema Assessment /Plan Problems (1) Altered mental status Status: Chronic Response to Treatment: Stable Problem Text: Likely related to worsening of his dementia related to recent intracerebral bleed from head trauma CT shows the area of bleed is actually smaller Continue supportive care PFS consulted to pursue placement (2) Agitation Status: Acute Response to Treatment: Stable (3) 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 Response to Treatment: Improving (4) Dementia Status: Chronic Response to Treatment: Worse Plan/VTE VTE Prophylaxis Ordered?: Yes VTE Exclusion Mechanical Proph: Low Risk for VTE VS, I&O, 24H, Fishbone Vital Signs/I&O Vital Signs Date Time Temp Pulse Resp B/P Pulse Ox O2 Delivery O2 Flow Rate FiO2 09/25/16 06:00 97.8 57 20 133/63 96 09/24/16 18:11 Room Air I&O- Last 24 Hours up to 6 AM 09/25/16 05:59 Output Total 225 ml Balance -225 ml Laboratory Data 24H LABS Laboratory Tests 2 09/24/16 18:26: Ammonia 27, White Blood Count 7.0, Red Blood Count 4.57, Hemoglobin 14.3, Hematocrit 43.8, Mean Corpuscular Volume 95.8, Mean Corpuscular Hemoglobin 31.2 , Mean Corpuscular Hemoglobin Concent 32.6, Red Cell Distribution Width 12.5, Platelet Count 208, Neutrophils (%) (Auto) 68.0H, Lymphocytes (%) (Auto) 18.8L, Monocytes (%) (Auto) 7.4H, Eosinophils (%) (Auto) 2.9, Basophils (%) (Auto) 0.8 , Neutrophils # (Auto) 4.8, Lymphocytes # (Auto) 1.5, Monocytes # (Auto) 0.5, Eosinophils # (Auto) 0.2, Basophils # (Auto) 0.1, Lactic Acid Level 1.3, Large Unclassified Cells # 0.2, Large Unclassified Cells % 2.2, Urine Amorphous Sediment , Urine Appearance CLEAR, Urine Color YELLOW, Urine pH 5.0, Urine Specific [place] 1.019, Urine Protein NEGATIVE, Urine Glucose (UA) NEGATIVE, Urine Ketones TRACEH, Urine Urobilinogen 0.2, Urine Bilirubin NEGATIVE, Urine Leukocyte Esterase NEGATIVE, Urine Bacteria (Auto) NEGATIVE, Urine Blood NEGATIVE, Urine Calcium Carbonate Cryst(Auto) , Urine Calcium Oxalate Cryst ( Auto) , Urine Calcium Phosphate Nayely (Auto) , Urine Cellular Casts , Urine Cystine Crystals , Urine Granular Casts (Auto) , Urine Hyaline Casts (Auto) 0, Urine Leucine Crystals , Urine Mucus (Auto) MODERATE, Urine Nitrite NEGATIVE, Urine Oval Fat Bodies (Auto) , Urine RBC (Auto) 1, Urine Renal Epithelial Cells , Urine Sperm (Auto) , Urine Squamous Epithelial Cells 0, Urine Transitional Epithelial Cells , Urine Trichomonas (Auto) , Urine Triple Phosphate Cryst (Auto ) , Urine Tyrosine Crystals , Urine Uric Acid Crystals (Auto) , Urine WBC (Auto ) 1, Urine Waxy Casts (Auto) , Urine Yeast-Like Cells (Auto) 09/24/16 19:14: Aspartate Amino Transf (AST/SGOT) 13L, Alanine Aminotransferase (ALT/SGPT) 20, Alkaline Phosphatase 88, Total Bilirubin 0.4, Direct Bilirubin 0.1, Albumin 3.6 , Albumin/Globulin Ratio 1.29, Anion Gap 4L, Calcium Level 8.5L, Glomerular Filtration Rate > 60.0, Thyroid Stimulating Hormone (TSH) 3.210, Total Protein 6.4 CBC/BMP Laboratory Tests 09/24/16 18:26 Red Blood Count 4.57, Mean Corpuscular Volume 95.8, Mean Corpuscular Hemoglobin 31.2, Mean Corpuscular Hemoglobin Concent 32.6, Red Cell Distribution Width 12.5 , Neutrophils (%) (Auto) 68.0 H, Lymphocytes (%) (Auto) 18.8 L, Monocytes (%) ( Auto) 7.4 H, Eosinophils (%) (Auto) 2.9, Basophils (%) (Auto) 0.8, Neutrophils # (Auto) 4.8, Lymphocytes # (Auto) 1.5, Monocytes # (Auto) 0.5, Eosinophils # ( Auto) 0.2, Basophils # (Auto) 0.1 09/24/16 19:14 ALBERTO MALDONADO PA-C Sep 25, 2016 13:24
[2016-09-25 14:00] VITALS: BP 115/57
[2016-09-25 16:00] VITALS: BP 130/75
[2016-09-25] MEDS: ATORVASTATIN 20 MG TAB PO SCH (21:13)
[2016-09-25] MEDS: DONEPEZIL 5 MG TAB PO SCH (21:13)
[2016-09-25] MEDS: ACETAMINOPHEN TAB 650MG DOSE (2X325MG) PO PRN (21:30)
[2016-09-25 22:00] VITALS: BP 134/72
[2016-09-26 06:00] VITALS: BP 135/67
[2016-09-26] MEDS: MEMANTINE 5MG TABLET (NAMENDA) PO SCH ×2 (08:51→20:40)
[2016-09-26] MEDS: SERTRALINE HCL 50 MG TAB PO SCH (08:51)
[2016-09-26] MEDS: MULTIVITAMINS/MINERALS THERAP 1 TAB PO SCH (08:51)
[2016-09-26 10:00] VITALS: BP 110/57
[2016-09-26 14:00] VITALS: BP 100/56
--- NOTE | 2016-09-26 15:54 | IPNPDOC ---
Subjective Date Seen The patient was seen on 09/26/16. Subjective Chief Complaint/HPI The patient is a 86-year-old male admitted with a reason for visit of Ams/ Agitation. Constitutional: Denies: Chills, Fever ENT: Denies: Head Aches Skin: Denies: Rash Pulmonary: Denies: Cough, Dyspnea Cardiovascular: Denies: Chest Pain, Palpitations Gastrointestinal: Denies: Abdominal Pain, Constipation, Diarrhea, Nausea, Vomiting Musculoskeletal: Denies: Back Pain, Neck Pain Neurological: Reports: Confusion, Denies: Change in speech, Numbness, Weakness Objective Physical Examination General Exam: Positive: Alert (Sitting up at bedside. Pleasantly confused. ), No Acute Distress Chest Exam: Positive: Clear to auscultation, Normal air movement Heart Exam: Positive: Rate Normal, Negative: Murmurs Abdomen Exam: Positive: Normal bowel sounds, Soft, Negative: Tenderness Extremity Exam: Negative: Edema Skin Exam: Negative: Nl turgor and temperature, Rash Psych Exam: Negative: Mental status NL, Oriented x 3 (Patient does not know where he is and does not know date/month/year) Assessment /Plan Problems (1) Altered mental status Status: Chronic Response to Treatment: Stable Problem Text: Likely related to worsening of his dementia related to recent intracerebral bleed from head trauma CT shows the area of bleed is actually smaller Continue supportive care PT saw patient today - note states functional status is intact but recommends SNF due to cognitive difficulties. Patient's daughter is at bedside and states her mother had a discussed with PFS today regarding placement but she does not know the status of this; there is no note available from PFS - they will need to be contacted tomorrow. 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
[2016-09-26] MEDS: HALOPERIDOL 5 MG/ML VIAL (J1630) IV PRN ×2 (16:42→20:43)
[2016-09-26 18:00] VITALS: BP 130/68
[2016-09-26] MEDS: ACETAMINOPHEN TAB 650MG DOSE (2X325MG) PO PRN (20:39)
[2016-09-26] MEDS: DONEPEZIL 5 MG TAB PO SCH (20:41)
[2016-09-26 22:00] VITALS: BP 117/62
[2016-09-27] MEDS: HALOPERIDOL 5 MG/ML VIAL (J1630) IV PRN ×4 (00:42→19:13)
[2016-09-27 06:00] VITALS: BP 127/64
[2016-09-27] MEDS: SERTRALINE HCL 50 MG TAB PO SCH (09:05)
[2016-09-27] MEDS: MULTIVITAMINS/MINERALS THERAP 1 TAB PO SCH (09:05)
[2016-09-27] MEDS: MEMANTINE 5MG TABLET (NAMENDA) PO SCH ×2 (09:05→19:58)
[2016-09-27 14:00] VITALS: BP 124/64
[2016-09-27] MEDS: ATORVASTATIN 20 MG TAB PO SCH (19:58)
[2016-09-27] MEDS: ACETAMINOPHEN TAB 650MG DOSE (2X325MG) PO PRN (19:58)
[2016-09-27] MEDS: DONEPEZIL 5 MG TAB PO SCH (19:58)
[2016-09-27 22:00] VITALS: BP 104/55
[2016-09-28] VITALS (7 sets, daily range): BP systolic 78–162; BP diastolic 40–98
[2016-09-28] MEDS: HALOPERIDOL 5 MG/ML VIAL (J1630) IV PRN (06:32)
[2016-09-28] MEDS: SERTRALINE HCL 50 MG TAB PO SCH (09:36)
[2016-09-28] MEDS: MEMANTINE 5MG TABLET (NAMENDA) PO SCH ×2 (09:36→20:34)
[2016-09-28] MEDS: MULTIVITAMINS/MINERALS THERAP 1 TAB PO SCH (09:36)
[2016-09-28] MEDS: ACETAMINOPHEN TAB 650MG DOSE (2X325MG) PO PRN ×2 (09:36→20:42)
--- NOTE | 2016-09-28 15:04 | IPN ---
DATE: 09/28/2016 I spoke with Haroon Cohen's . We had a long discussion. Their daughter Diamond was present. I told her that I did not feel that Haroon should be going home. I think he needs 24 hour nursing care and he is a danger for himself and her at home. He has already had problems with wandering and he has been outside and they could not find him. Last night he undressed himself, voided on the floor of the room, did not know where he was and was agitated. He also had an orthostatic hypotensive episode today when systolic pressure fell and returned to normal after being laid supine. We had a long discussion, but I do not think that it had much effect on her determination to take him home. She understands that I think that this is not in either of their best interest, but she seems committed on discharge home rather than to a nursing facility.
[2016-09-28] MEDS: DONEPEZIL 5 MG TAB PO SCH (20:34)
[2016-09-29 02:00] VITALS: BP 132/69
[2016-09-29 06:00] VITALS: BP 149/76
[2016-09-29] MEDS: ACETAMINOPHEN TAB 650MG DOSE (2X325MG) PO PRN (06:02)
[2016-09-29] MEDS: MEMANTINE 5MG TABLET (NAMENDA) PO SCH ×2 (08:16→20:29)
[2016-09-29] MEDS: SERTRALINE HCL 50 MG TAB PO SCH (08:16)
[2016-09-29] MEDS: MULTIVITAMINS/MINERALS THERAP 1 TAB PO SCH (08:16)
[2016-09-29 10:00] VITALS: BP 116/65
[2016-09-29 11:24] LABS: ANION GAP 7 MEQ/L (8-16); BLOOD UREA NITROGEN 21 MG/DL (7-18); CALCIUM LEVEL 8.4 MG/DL (8.8-10.2); CARBON DIOXIDE LEVEL 30 MEQ/L (21-32); CHLORIDE LEVEL 100 MEQ/L (98-107); CREATININE FOR GFR 1.03 MG/DL (0.70-1.30); GLOMERULAR FILTRATION RATE > 60.0 (>35); GLUCOSE, FASTING 103 MG/DL (83-110); SODIUM LEVEL 137 MEQ/L (136-145)
--- NOTE | 2016-09-29 12:03 | REP ---
CHEST X-RAY: CLINICAL: Low grade temperature with rhonchi. TECHNIQUE: PA and lateral. COMPARISON: 09/24/2016 FINDINGS: Mediastinum and cardiac silhouette are normal. The lung whitlock demonstrate chronic changes. Trace left basilar atelectasis cannot be excluded. No focal consolidation, effusion or pneumothorax. The skeletal structures demonstrate age-related changes. IMPRESSION: Chronic changes. Cannot exclude trace basilar atelectasis. Signed by Rakan Leonardo MD 10/04/2016 11:02 A
[2016-09-29 12:33] LABS: MEAN CORPUSCULAR HEMOGLOBIN 32.2 pg (27.0-33.0); MEAN CORPUSCULAR VOLUME 94.7 fl (80.0-96.0); RED CELL DISTRIBUTION WIDTH 12.5 % (11.5-14.5); WHITE BLOOD COUNT 5.5 K/mm3 (4.0-10.0)
[2016-09-29 14:00] VITALS: BP 131/83
[2016-09-29 18:00] VITALS: BP 172/89
[2016-09-29] MEDS: ATORVASTATIN 20 MG TAB PO SCH (20:28)
[2016-09-29] MEDS: DONEPEZIL 5 MG TAB PO SCH (20:29)
[2016-09-29 22:00] VITALS: BP 130/73
[2016-09-30] VITALS (8 sets, daily range): BP systolic 64–146; BP diastolic 42–80
[2016-09-30] MEDS: MULTIVITAMINS/MINERALS THERAP 1 TAB PO SCH (09:27)
[2016-09-30] MEDS: MEMANTINE 5MG TABLET (NAMENDA) PO SCH ×2 (09:27→20:43)
[2016-09-30] MEDS: SERTRALINE HCL 50 MG TAB PO SCH (09:27)
--- NOTE | 2016-09-30 11:17 | IPNPDOC ---
Subjective Date Seen The patient was seen on 09/30/16. Subjective Chief Complaint/HPI Nursing is concerned that pt isn't acting himself this morning. He has not been up out of bed except to go to the bathroom once or eaten breakfast, he only wakes for a few minutes then goes abck to bed. He awoke to voice when I saw him and answered questions appropriately. He has no complaints this morning. General: Reports: Fatigue Constitutional: Denies: Chills, Fever ENT: Denies: Head Aches Pulmonary: Denies: Cough, Dyspnea Cardiovascular: Denies: Chest Pain, Palpitations Gastrointestinal: Denies: Diarrhea, Nausea, Vomiting Musculoskeletal: Denies: Neck Pain Objective Physical Examination General Exam: Positive: No Acute Distress (awoke to voice, answered questions. ) Chest Exam: Positive: Clear to auscultation, Normal air movement Heart Exam: Positive: Normal S1, Normal S2, Rate Normal, Negative: Murmurs Abdomen Exam: Positive: Normal bowel sounds, Soft, Negative: Tenderness Extremity Exam: Negative: Edema Skin Exam: Negative: Nl turgor and temperature, Rash Psych Exam: Negative: Mental status NL, Oriented x 3 (Oriented to person and place, not to year.) Assessment /Plan Problems (1) Fever Status: Acute Response to Treatment: Stable Problem Specific Plan: Monitor Clinically Problem Text: Pt was noted to have a temp 09/29 of 100.4 on two occasions, subsequently, CXR and UA were ordered. CXR appears benign, lung exam is also benign today. UA, U C & S Neg. Monitor for recurrence. (2) Altered mental status Status: Chronic Response to Treatment: Stable Problem Text: 09/30 - appears stable. 09/26 Likely related to worsening of his dementia related to recent intracerebral bleed from head trauma CT shows the area of bleed is actually smaller Continue supportive care PT saw patient today - note states functional status is intact but recommends SNF due to cognitive difficulties. Patient's daughter is at bedside and states her mother had a discussed with PFS today regarding placement but she does not know the status of this; there is no note available from PFS - they will need to be contacted tomorrow. 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 His would like him to attempt home once more before NH placement. Given his change in activity from baseline, will not prepare d/c at this time. Will allow for family to assess, and consider d/c later today vs tomorrow. I suggest NH placement. VS, I&O, 24H, Fishbone Vital Signs/I&O Vital Signs Date Time Temp Pulse Resp B/P Pulse Ox O2 Delivery O2 Flow Rate FiO2 09/30/16 06:00 98.2 91 19 146/80 93 Room Air I&O- Last 24 Hours up to 6 AM 09/30/16 06:00 Intake Total 330 ml Output Total 400 ml Balance -70 ml Laboratory Data 24H LABS Laboratory Tests 2 09/29/16 13:46: Urine Amorphous Sediment , Urine Appearance CLOUDYH, Urine Color KATE, Urine pH 5.0, Urine Specific [place] 1.028, Urine Protein 1+H, Urine Glucose (UA) NEGATIVE, Urine Ketones 1+H, Urine Urobilinogen 0.2, Urine Bilirubin NEGATIVE, Urine Leukocyte Esterase NEGATIVE, Urine Bacteria (Auto) 1+H, Urine Blood NEGATIVE, Urine Calcium Carbonate Cryst(Auto) , Urine Calcium Oxalate Cryst ( Auto) , Urine Calcium Phosphate Nayely (Auto) , Urine Cellular Casts , Urine Cystine Crystals , Urine Granular Casts (Auto) , Urine Hyaline Casts (Auto) 4, Urine Leucine Crystals , Urine Mucus (Auto) LARGE, Urine Nitrite NEGATIVE, Urine Oval Fat Bodies (Auto) , Urine RBC (Auto) 2, Urine Renal Epithelial Cells , Urine Sperm (Auto) , Urine Squamous Epithelial Cells 0, Urine Transitional Epithelial Cells , Urine Trichomonas (Auto) , Urine Triple Phosphate Cryst (Auto ) , Urine Tyrosine Crystals , Urine Uric Acid Crystals (Auto) , Urine WBC (Auto ) 2, Urine Waxy Casts (Auto) , Urine Yeast-Like Cells (Auto) Microbiology Microbiology 09/29/16 Urine Culture - Final, Complete TRINI STEEL PA-C Sep 30, 2016 11:17
[2016-09-30] MEDS: ACETAMINOPHEN TAB 650MG DOSE (2X325MG) PO PRN (15:28)
[2016-09-30] MEDS: DONEPEZIL 5 MG TAB PO SCH (20:43)
[2016-10-01] VITALS (8 sets, daily range): BP systolic 95–113; BP diastolic 54–65
[2016-10-01] MEDS: SERTRALINE HCL 50 MG TAB PO SCH (09:26)
[2016-10-01] MEDS: MEMANTINE 5MG TABLET (NAMENDA) PO SCH ×2 (09:26→20:08)
[2016-10-01] MEDS: MULTIVITAMINS/MINERALS THERAP 1 TAB PO SCH (09:26)
--- NOTE | 2016-10-01 16:06 | IPNPDOC ---
Subjective Date Seen The patient was seen on 10/01/16. Subjective Chief Complaint/HPI The patient is a 86-year-old male admitted with a reason for visit of Ams/ Agitation. Constitutional: Denies: Fever Pulmonary: Denies: Cough, Dyspnea Cardiovascular: Denies: Chest Pain Gastrointestinal: Denies: Abdominal Pain, Nausea, Vomiting Objective Physical Examination General Exam: Positive: Alert, Cooperative, No Acute Distress Eye Exam: Positive: PERRLA ENT Exam: Positive: Atraumatic Chest Exam: Positive: Clear to auscultation, Normal air movement Heart Exam: Positive: Normal S1, Normal S2, Rate Normal, Negative: Murmurs Abdomen Exam: Positive: Normal bowel sounds, Soft, Negative: Tenderness Extremity Exam: Negative: Edema Skin Exam: Negative: Nl turgor and temperature, Rash Psych Exam: Negative: Mental status NL, Oriented x 3 (Oriented to person but not to place, year, or situation.) Assessment /Plan Problems (1) Hypotension Status: Acute Response to Treatment: Improving Problem Text: Patient had an episode of acute asymptomatic hypotension while sitting in a chair yesterday evening; he was placed in Trendelenburg and BP improved. He has had no further hypotension today. This could be due to autonomic dysfunction; if this recurs, consider starting midodrine. - He has also not been eating or drinking very well - will encourage PO hydration and recheck BMP in the morning. (2) Fever Status: Acute Response to Treatment: Stable Problem Specific Plan: Monitor Clinically Problem Text: Pt was noted to have a temp 09/29 of 100.4 on two occasions, subsequently, CXR and UA were ordered. CXR appears benign, lung exam is also benign today. UA, U C & S Neg. No further fevers. Monitor for recurrence. (3) Altered mental status Status: Chronic Response to Treatment: Stable Problem Text: 10/01 - Stable and likely due to dementia, with possible worsening due to recent intracerebral bleed; patient's is still adamant about taking patient home. 09/30 - appears stable. 09/26 Likely related to worsening of his dementia related to recent intracerebral bleed from head trauma CT shows the area of bleed is actually smaller Continue supportive care PT saw patient today - note states functional status is intact but recommends SNF due to cognitive difficulties. Patient's daughter is at bedside and states her mother had a discussed with PFS today regarding placement but she does not know the status of this; there is no note available from PFS - they will need to be contacted tomorrow. 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
[2016-10-01] MEDS: ACETAMINOPHEN TAB 650MG DOSE (2X325MG) PO PRN (20:08)
[2016-10-01] MEDS: DONEPEZIL 5 MG TAB PO SCH (20:08)
[2016-10-01] MEDS: ATORVASTATIN 20 MG TAB PO SCH (20:09)
[2016-10-02 02:00] VITALS: BP 100/50
[2016-10-02 06:00] VITALS: BP 105/53
[2016-10-02 06:18] LABS: ANION GAP 7 MEQ/L (8-16); BLOOD UREA NITROGEN 24 MG/DL (7-18); CALCIUM LEVEL 8.2 MG/DL (8.8-10.2); CARBON DIOXIDE LEVEL 29 MEQ/L (21-32); CHLORIDE LEVEL 103 MEQ/L (98-107); CREATININE FOR GFR 0.83 MG/DL (0.70-1.30); GLOMERULAR FILTRATION RATE > 60.0 (>35); GLUCOSE, FASTING 80 MG/DL (83-110); POTASSIUM SERUM 3.9 MEQ/L (3.5-5.1); SODIUM LEVEL 139 MEQ/L (136-145)
[2016-10-02] MEDS: MULTIVITAMINS/MINERALS THERAP 1 TAB PO SCH (08:52)
[2016-10-02] MEDS: MEMANTINE 5MG TABLET (NAMENDA) PO SCH ×2 (08:52→20:46)
[2016-10-02] MEDS: SERTRALINE HCL 50 MG TAB PO SCH (08:53)
[2016-10-02 10:00] VITALS: BP 102/60
[2016-10-02] MEDS: MIDODRINE 5 MG TAB PO SCH ×2 (12:16→16:46)
--- NOTE | 2016-10-02 12:18 | IPNPDOC ---
Subjective Date Seen The patient was seen on 10/02/16. Subjective Chief Complaint/HPI The patient is a 86-year-old male admitted with a reason for visit of Ams/ Agitation. Events since last encounter Patient has no complaints. History limited by patient's dementia. Constitutional: Denies: Chills, Fever ENT: Denies: Head Aches Pulmonary: Reports: Cough (states he has been coughing this AM), Denies: Dyspnea Cardiovascular: Denies: Chest Pain, Palpitations Gastrointestinal: Denies: Abdominal Pain, Nausea, Vomiting Musculoskeletal: Denies: Back Pain, Neck Pain Objective Physical Examination General Exam: Positive: Alert, Cooperative, No Acute Distress Eye Exam: Positive: PERRLA ENT Exam: Positive: Atraumatic Chest Exam: Positive: Clear to auscultation, Normal air movement Heart Exam: Positive: Normal S1, Normal S2, Rate Normal, Negative: Murmurs Abdomen Exam: Positive: Normal bowel sounds, Soft, Negative: Tenderness Extremity Exam: Negative: Edema Skin Exam: Negative: Nl turgor and temperature, Rash Psych Exam: Negative: Mental status NL, Oriented x 3 (Oriented to person but not to place, year, or situation.) Assessment /Plan Problems (1) Hypotension Status: Acute Response to Treatment: Improving Problem Text: 10/02 - Patient was hypotensive again yesterday evening - per nurse , this occurs while he is awake and standing or in a chair; BP somewhat improved with moving him to bed and raising his feet. BMP is normal. Will start low dose of midodrine 5 mg TID. 10/01 - Patient had an episode of acute asymptomatic hypotension while sitting in a chair yesterday evening; he was placed in Trendelenburg and BP improved. He has had no further hypotension today. This could be due to autonomic dysfunction; if this recurs, consider starting midodrine. - He has also not been eating or drinking very well - will encourage PO hydration and recheck BMP in the morning. (2) Fever Status: Acute Response to Treatment: Stable Problem Specific Plan: Monitor Clinically Problem Text: 10/02 - No further fevers Pt was noted to have a temp 330 of 100.4 on two occasions, subsequently, CXR and UA were ordered. CXR appears benign, lung exam is also benign today. UA, U C & S Neg. No further fevers. Monitor for recurrence. (3) Altered mental status Status: Chronic Response to Treatment: Stable Problem Text: 10/02 - Stable; no family at bedside this morning. 10/01 - Stable and likely due to dementia, with possible worsening due to recent intracerebral bleed; patient's is still adamant about taking patient home. 09/30 - appears stable. 09/26 Likely related to worsening of his dementia related to recent intracerebral bleed from head trauma CT shows the area of bleed is actually smaller Continue supportive care PT saw patient today - note states functional status is intact but recommends SNF due to cognitive difficulties. Patient's daughter is at bedside and states her mother had a discussed with PFS today regarding placement but she does not know the status of this; there is no note available from PFS - they will need to be contacted tomorrow. 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 Response to Treatment: Improving Plan/VTE VTE Prophylaxis Ordered?: Yes VTE Exclusion Mechanical Proph: Low Risk for VTE VS, I&O, 24H, [facility] Vital Signs/I&O Vital Signs Date Time Temp Pulse Resp B/P Pulse Ox O2 Delivery O2 Flow Rate FiO2 10/02/16 10:00 98.4 77 16 102/60 94 Room Air I&O- Last 24 Hours up to 6 AM 10/02/16 06:00 Intake Total 1200 ml Output Total 500 ml Balance 700 ml Laboratory Data 24H LABS Laboratory Tests 2 10/02/16 05:41: Anion Gap 7L, Blood Urea Nitrogen 24H, Creatinine 0.83, Sodium Level 139, Potassium Level 3.9, Chloride Level 103, Carbon Dioxide Level 29, Calcium Level 8.2L, Glomerular Filtration Rate > 60.0 CBC/BMP Laboratory Tests 10/02/16 05:41 Calcium Level 8.2 L Microbiology Microbiology 09/29/16 Urine Culture - Final, Complete JAKE PATINO MD Oct 02, 2016 12:17
[2016-10-02 14:00] VITALS: BP 121/62
[2016-10-02] MEDS: DONEPEZIL 5 MG TAB PO SCH (20:46)
[2016-10-02] MEDS: ACETAMINOPHEN TAB 650MG DOSE (2X325MG) PO PRN (20:47)
[2016-10-02 22:00] VITALS: BP 111/63
[2016-10-03 02:00] VITALS: BP 104/53
[2016-10-03 06:00] VITALS: BP 105/57
[2016-10-03] MEDS: MULTIVITAMINS/MINERALS THERAP 1 TAB PO SCH (09:16)
[2016-10-03] MEDS: MIDODRINE 5 MG TAB PO SCH ×3 (09:16→16:39)
[2016-10-03] MEDS: SERTRALINE HCL 50 MG TAB PO SCH (09:16)
[2016-10-03] MEDS: MEMANTINE 5MG TABLET (NAMENDA) PO SCH ×2 (09:16→20:37)
[2016-10-03 10:00] VITALS: BP 114/59
--- NOTE | 2016-10-03 11:08 | DSES ---
DATE OF ADMISSION: 09/25/2016 DATE OF DISCHARGE: 10/03/2016 This is a SNF summary. PRIMARY CARE PROVIDER: Dr. Earl Bhat. ATTENDING: Dr. Pablo Bowers. HISTORY: This is an 86-year-old male patient who presented to [facility] emergency room with a change in mental status, increased agitation. He lives at home with his . He is having increasing difficulty doing things around his home and wanting to drive, wanting to go outside alone. He gets upset and agitated causing bruising to his . He can be quite aggressive. Recently, he has been lost leaving the home and has required several people in the neighborhood to help find him. Dr. Bhat has been working with the patient and his family in terms of placement, although the family, as is the patient's , have been really concerned and not willing to proceed in this manner. During his hospitalization, he has remained medically stable. Urine culture has been negative. Labs have been stable. Vitals have also been stable. He did spike a temperature on 09/29/2016 of 100.4, although this has not recurred and he was asymptomatic associated with it. Patient/Family services have been involves. Dr. Bhat has had a conversation with the in regards to placement. She was refusing up until this weekend when she was seemingly more interested in considering this option. DISCHARGE DIAGNOSES: Include. Altered mental status. Agitation. Dementia. Fever. Hypotension. Recent history of intracerebral bleed due to trauma secondary to a fall. Discharge medications and plan will be summarized at the time of discharge from hospital.
[2016-10-03 14:00] VITALS: BP 122/59
[2016-10-03] MEDS: HALOPERIDOL 5 MG/ML VIAL (J1630) IV PRN (19:16)
[2016-10-03] MEDS: ACETAMINOPHEN TAB 650MG DOSE (2X325MG) PO PRN (20:38)
[2016-10-03] MEDS: ATORVASTATIN 20 MG TAB PO SCH (20:38)
[2016-10-03] MEDS: DONEPEZIL 5 MG TAB PO SCH (20:38)
[2016-10-03] MEDS: LORazepam 2 MG/ML VIAL (J2060) IV PRN (20:38)
[2016-10-04 02:00] VITALS: BP 105/52
[2016-10-04 06:00] VITALS: BP 129/63
[2016-10-04] MEDS: MIDODRINE 5 MG TAB PO SCH ×3 (08:58→16:29)
[2016-10-04] MEDS: MULTIVITAMINS/MINERALS THERAP 1 TAB PO SCH (08:59)
[2016-10-04] MEDS: SERTRALINE HCL 50 MG TAB PO SCH (08:59)
[2016-10-04] MEDS: MEMANTINE 5MG TABLET (NAMENDA) PO SCH ×2 (08:59→22:22)
[2016-10-04 10:00] VITALS: BP 139/74
[2016-10-04] MEDS: QUEtiapine FUMARATE 12.5 MG HALF-TAB PO SCH ×2 (12:04→22:22)
--- NOTE | 2016-10-04 14:22 | IPN ---
DATE: 10/04/2016 Haroon has been having problems at night where he becomes agitated, confused, combative. He required a sedative last night with Haldol and some Ativan. I spoke to the charge nurse. The family still plans on bringing him home with 24/7 care. I strongly disagree with that and feel it is unsafe for both the patient and his caregivers. I have discussed this with Vicki his on numerous occasions, most recently the end of last week, and she is resolute in her determination to bring him home. She understands my reservations and I think this is going to unfortunately lead to readmission and inevitably placement.
[2016-10-04] MEDS: DONEPEZIL 5 MG TAB PO SCH (22:22)
[2016-10-05] MEDS: ACETAMINOPHEN TAB 650MG DOSE (2X325MG) PO PRN (03:30)
[2016-10-05] MEDS: LORazepam 2 MG/ML VIAL (J2060) IV PRN (03:31)
[2016-10-05 06:00] VITALS: BP 102/55
[2016-10-05] MEDS: MIDODRINE 5 MG TAB PO SCH ×3 (09:08→17:12)
[2016-10-05] MEDS: QUEtiapine FUMARATE 12.5 MG HALF-TAB PO SCH ×2 (09:08→20:36)
[2016-10-05] MEDS: SERTRALINE HCL 50 MG TAB PO SCH (09:09)
[2016-10-05] MEDS: MEMANTINE 5MG TABLET (NAMENDA) PO SCH ×2 (09:09→20:36)
[2016-10-05] MEDS: MULTIVITAMINS/MINERALS THERAP 1 TAB PO SCH (09:09)
[2016-10-05] MEDS ORDERED: LORazepam 0.5 MG TAB PO PRN (14:30)
--- NOTE | 2016-10-05 15:13 | IPN ---
DATE: 10/05/2016 I met with Vicki, Haroon's , as well as Haroon's daughter. His still wants to try to bring him home. He has been started on Seroquel, low dose. Today he is lethargic from this. I had a long, yohana discussion about his situation. I am concerned that in order to control his behavior sufficiently, he is not a risk to himself or his at home, he will end up being lethargic, hopefully he will acclimate to the Seroquel. I have stopped his Haldol and changed the Ativan to by mouth as needed. At this point, plan, against my advice, is for her to take him home and then "when I'm ready" transfer to long-term placement. She would like to meet with patient and family services (PFS) to discuss that process..
[2016-10-05] MEDS: DONEPEZIL 5 MG TAB PO SCH (20:37)
[2016-10-05] MEDS: ATORVASTATIN 20 MG TAB PO SCH (20:37)
[2016-10-05 22:00] VITALS: BP 153/69
[2016-10-06 06:00] VITALS: BP 151/71
[2016-10-06] MEDS: QUEtiapine FUMARATE 12.5 MG HALF-TAB PO SCH ×2 (09:15→20:07)
[2016-10-06] MEDS: MEMANTINE 5MG TABLET (NAMENDA) PO SCH ×2 (09:15→20:07)
[2016-10-06] MEDS: MULTIVITAMINS/MINERALS THERAP 1 TAB PO SCH (09:16)
[2016-10-06] MEDS: SERTRALINE HCL 50 MG TAB PO SCH (09:16)
[2016-10-06] MEDS: MIDODRINE 5 MG TAB PO SCH ×3 (09:16→16:54)
[2016-10-06 09:18] VITALS: BP 131/62
[2016-10-06 12:24] VITALS: BP 120/60
[2016-10-06] MEDS: DONEPEZIL 5 MG TAB PO SCH (20:07)
[2016-10-07 06:00] VITALS: BP 128/59
[2016-10-07] MEDS: SERTRALINE HCL 50 MG TAB PO SCH (09:27)
[2016-10-07] MEDS: MIDODRINE 5 MG TAB PO SCH ×3 (09:27→16:44)
[2016-10-07] MEDS: MULTIVITAMINS/MINERALS THERAP 1 TAB PO SCH (09:28)
[2016-10-07] MEDS: QUEtiapine FUMARATE 12.5 MG HALF-TAB PO SCH ×2 (09:28→20:28)
[2016-10-07] MEDS: MEMANTINE 5MG TABLET (NAMENDA) PO SCH ×2 (09:28→20:29)
--- NOTE | 2016-10-07 13:59 | DSES ---
DATE OF ADMISSION: 09/25/2016 DATE OF DISCHARGE: PRINCIPAL DIAGNOSIS: Agitated dementia with behavioral disturbance. SECONDARY DIAGNOSES: Intermittent hypotension secondary to orthostasis. Recurrent falls with intracerebral bleed times two in the past year. HISTORY: Haroon Reza was brought to the hospital by his family with inability to care for him at home. He was recently discharged from the hospital for the same problem. He had been having falls and became agitated and aggressive at night and they could not handle him anymore, so they brought him to the emergency room. The rest of the details are in the history and physical. HOSPITAL COURSE: Admitted to hospital bed. In order to express my concern about the danger of him living at home, both to himself and his caregivers, ultimately family decided to consent to transfer to a fdc and apparently that is taking place on 10/09. The patient had intermittent episodes of hypotension, probably secondary to orthostasis. This occurs with advanced dementia. He was started on midodrine and seemed to respond to this. His lab work showed nothing remarkable during his hospitalization. DISPOSITION: Apparently going to [facility] on 10/09/2016. ACTIVITY: As tolerated. DIET: As tolerated. MEDICATIONS: - Seroquel 12.5 mg twice a day - midodrine 5 mg three times a day - atorvastatin 10 mg at bedtime - Aricept 5 mg at bedtime - Namenda 10 mg twice a day - multivitamin - Zoloft 50 mg daily - Tylenol as needed - He has Ativan by mouth ordered for breakthrough agitation, but has not used it in several days.
[2016-10-07] MEDS: MIRALAX *UNIT DOSE* 17GM PACKET PO PRN (17:50)
[2016-10-07] MEDS: ATORVASTATIN 20 MG TAB PO SCH (20:29)
[2016-10-07] MEDS: DONEPEZIL 5 MG TAB PO SCH (20:29)
[2016-10-07] MEDS: DOCUSATE SODIUM 100 MG CAP PO PRN (20:29)
[2016-10-08 06:00] VITALS: BP 108/51
[2016-10-08] MEDS: SERTRALINE HCL 50 MG TAB PO SCH (09:00)
[2016-10-08] MEDS: MULTIVITAMINS/MINERALS THERAP 1 TAB PO SCH (09:53)
[2016-10-08] MEDS: QUEtiapine FUMARATE 12.5 MG HALF-TAB PO SCH ×2 (09:53→20:44)
[2016-10-08] MEDS: MIDODRINE 5 MG TAB PO SCH ×3 (09:53→16:39)
[2016-10-08] MEDS: MEMANTINE 5MG TABLET (NAMENDA) PO SCH ×2 (09:53→20:44)
[2016-10-08] MEDS: MIRALAX *UNIT DOSE* 17GM PACKET PO PRN (18:14)
[2016-10-08] MEDS: DONEPEZIL 5 MG TAB PO SCH (20:44)
[2016-10-08] MEDS: DOCUSATE SODIUM 100 MG CAP PO PRN (20:44)
[2016-10-09 04:00] VITALS: BP 113/56
[2016-10-09] MEDS: QUEtiapine FUMARATE 12.5 MG HALF-TAB PO SCH ×2 (08:56→20:19)
[2016-10-09] MEDS: MIDODRINE 5 MG TAB PO SCH ×3 (08:56→16:39)
[2016-10-09] MEDS: SERTRALINE HCL 50 MG TAB PO SCH (08:56)
[2016-10-09] MEDS: MULTIVITAMINS/MINERALS THERAP 1 TAB PO SCH (08:56)
[2016-10-09] MEDS: MEMANTINE 5MG TABLET (NAMENDA) PO SCH ×2 (08:56→20:20)
[2016-10-09] MEDS: DONEPEZIL 5 MG TAB PO SCH (20:20)
[2016-10-09] MEDS: ATORVASTATIN 20 MG TAB PO SCH (20:20)
[2016-10-10 06:00] VITALS: BP 130/61
[2016-10-10] MEDS: QUEtiapine FUMARATE 12.5 MG HALF-TAB PO SCH ×2 (09:28→20:24)
[2016-10-10] MEDS: MULTIVITAMINS/MINERALS THERAP 1 TAB PO SCH (09:28)
[2016-10-10] MEDS: SERTRALINE HCL 50 MG TAB PO SCH (09:28)
[2016-10-10] MEDS: MEMANTINE 5MG TABLET (NAMENDA) PO SCH ×2 (09:28→20:24)
[2016-10-10] MEDS: MIDODRINE 5 MG TAB PO SCH ×3 (09:28→15:42)
[2016-10-10] MEDS: DONEPEZIL 5 MG TAB PO SCH (20:24)
[2016-10-11 06:00] VITALS: BP 125/56
[2016-10-11] MEDS: MIDODRINE 5 MG TAB PO SCH ×2 (09:54→12:49)
[2016-10-11] MEDS: MEMANTINE 5MG TABLET (NAMENDA) PO SCH (09:55)
[2016-10-11] MEDS: SERTRALINE HCL 50 MG TAB PO SCH (09:55)
[2016-10-11] MEDS: QUEtiapine FUMARATE 12.5 MG HALF-TAB PO SCH (09:55)
[2016-10-11] MEDS: MULTIVITAMINS/MINERALS THERAP 1 TAB PO SCH (09:55)
[2016-10-11] MEDS ORDERED: QUET1TAB7 PO (12:06)
== END 2016-10-11 13:05 | DRG 884 ==
LOC: M ED 18:53 → M ED INP 09-25 00:14 → M MSPAV 09-25 02:43
PROVIDERS: ADMIT Internal Medicine; ATTEND Family Medicine
DX: F03.91 Unspecified dementia, unspecified severity, with behavioral disturbance (principal); G93.6 Cerebral edema; S06.34 Traumatic hemorrhage of right cerebrum; I95.1 Orthostatic hypotension; E78.5 Hyperlipidemia, unspecified; N40.0 Benign prostatic hyperplasia without lower urinary tract symptoms; K21.9 Gastro-esophageal reflux disease without esophagitis; Z91.81 History of falling; Z79.899 Other long term (current) drug therapy; W01.0XXD Fall on same level from slipping, tripping and stumbling without subsequent striking against object, subsequent encounter; Y99.9 Unspecified external cause status

== ENCOUNTER 2016-11-22 23:29 | Emergency (ER) | payer MEDICARE, BC, OTHER ==
[~2016-11-22] VITALS: Ht 162.6 cm; Wt 77.1 kg
[~2016-11-22 23:29] MED LIST changes: +QUET1TAB7 PO; +[UNRECOGNIZED DRUG - REMARK] PO
[2016-11-22] MEDS ORDERED: DEPA125C PO (23:43)
[2016-11-22] MEDS ORDERED: ATIV1TAB10 PO (23:43)
[2016-11-22] MEDS ORDERED: ARIC5TAB PO (23:45)
[2016-11-22] MEDS ORDERED: ZOLO50TA PO (23:45)
[2016-11-23] MEDS ORDERED: LORazepam 1 MG TAB As Ordered ONE (00:27)
[2016-11-23] MEDS ORDERED: LORazepam 0.5 MG TAB PO ONE (00:30)
[2016-11-23 03:49] VITALS: BP 133/69
[2016-11-23] MEDS ORDERED: MIDO5TA PO (23:33)
[2016-11-23] MEDS ORDERED: LORA-376 PO (23:33)
== END 2016-11-23 03:32 | disposition home or self-care (01) ==
LOC: M ED 11-23 01:45
DX: F03.91 Unspecified dementia, unspecified severity, with behavioral disturbance (principal); S00.81XA Abrasion of other part of head, initial encounter; X58.XXXA Exposure to other specified factors, initial encounter; Y92.89 Other specified places as the place of occurrence of the external cause; Y93.89 Activity, other specified; Y99.8 Other external cause status; Z79.899 Other long term (current) drug therapy

== ENCOUNTER 2016-11-23 23:16 | Emergency (ER) | payer MEDICARE, BC, OTHER ==
[~2016-11-23] VITALS: Ht 170.2 cm; Wt 67.3 kg
[~2016-11-23 23:16] MED LIST changes: +ARIC5TAB PO; +ATIV1TAB10 PO; +DEPA125C PO; +ZOLO50TA PO
[2016-11-23] MEDS ORDERED: MIDO5TA PO (23:33)
[2016-11-23] MEDS ORDERED: LORA-376 PO (23:33)
[2016-11-24] MEDS ORDERED: LORazepam 0.5 MG TAB PO ONE (00:45)
[2016-11-24 01:23] LABS: BASO % 0.8 % (0.0-1.0); EOS # 0.2 K/mm3 (0.0-0.50); EOS % 3.5 % (0.0-3.0); LARGE UNSTAINED CELL # 0.2 K/mm3 (0.0-0.4); LARGE UNSTAINED CELL % 2.8 % (0.0-4.0); LYMPH # 1.9 K/mm3 (1.5-4.5); LYMPH % 27.3 % (24.0-44.0); MEAN CORPUSCULAR HGB CONC 32.9 g/dl (32.0-36.5); MEAN CORPUSCULAR VOLUME 94.2 fl (80.0-96.0); MONO # 0.6 K/mm3 (0.0-0.8); MONO % 8.6 % (0.0-5.0); NEUTROPHILS # 3.9 K/mm3 (1.8-7.7); PLATELET COUNT, AUTOMATED 180 k/mm3 (150-450); WHITE BLOOD COUNT 6.8 K/mm3 (4.0-10.0)
[2016-11-24 01:41] LABS: ANION GAP 4 MEQ/L (8-16); BLOOD UREA NITROGEN 20 MG/DL (7-18); CALCIUM LEVEL 8.6 MG/DL (8.8-10.2); CARBON DIOXIDE LEVEL 31 MEQ/L (21-32); CHLORIDE LEVEL 109 MEQ/L (98-107); CREATININE FOR GFR 0.97 MG/DL (0.70-1.30); GLOMERULAR FILTRATION RATE > 60.0 (>35); GLUCOSE, FASTING 105 MG/DL (83-110); POTASSIUM SERUM 4.4 MEQ/L (3.5-5.1); SODIUM LEVEL 144 MEQ/L (136-145)
--- NOTE | 2016-11-24 02:20 | REPUSA ---
CLINICAL HISTORY: Confusion. TECHNIQUE: Multiple axial CT images were obtained through the brain without IV contrast material. COMMENTS: Comparison is made to the prior exam on 09/01/2016. There is normal configuration of sella turcica. There are no intra or extra-axial collections. There is no mass effect or midline shift. There is no evidence of hematoma formation. No hydrocephalus is p resent. The ventricles are symmetrical. No abnormal calcifications are present. There is diffuse age-appropriate cerebellar and cerebral atrophy with proportionally dilated ventricl es and cortical sulci. There are bilateral periventricular and subcortical white matter hypolucencies compatible with mild c hronic microvascular disease. Otherwise, no significant focal abnormalities are seen either in the posterior fossa or supratentoria l compartment. Minimal secretions in the right maxillary sinus. IMPRESSION: 1. Age-appropriate cerebellar and cerebral atrophy. 2. Mild chronic microvascular disease. 3. No evidence of acute intracranial pathology. Unchanged exam. Thank you for your kind referral of this patient.
[2016-11-24 04:24] VITALS: BP 103/55
== END 2016-11-24 05:00 | disposition home or self-care (01) ==
LOC: EDBD 23:16 → M ED 11-24 00:44
DX: F03.90 Unspecified dementia, unspecified severity, without behavioral disturbance, psychotic disturbance, mood disturbance, and anxiety (principal); Z79.899 Other long term (current) drug therapy

== ENCOUNTER 2016-12-21 17:37 | Inpatient (IN) | payer MEDICARE, BC, OTHER ==
[~2016-12-21] VITALS: Ht 170.2 cm; Wt 67.2 kg
[~2016-12-21 17:37] MED LIST changes: -ARIC10TA PO; +ARIC1TAB PO; +ARIC1TAB2 PO; -ARIC5TAB PO; -DOCU100C PO; +DOCU100C16 PO; +LORA0.5T11 PO; +MIDO5TA PO
[2016-12-21] MEDS ORDERED: LORazepam 2 MG/ML VIAL (J2060) IM ONE (18:00)
[2016-12-21] MEDS ORDERED: QUET1TAB7 PO (18:04)
[2016-12-22] MEDS ORDERED: OLANZapine INTRAMUSCULAR 10 MG VIAL (S0166) IM ONE ×2 (00:15→01:30)
[2016-12-22] MEDS ORDERED: HALOPERIDOL 5 MG/ML VIAL (J1630) IM STA (02:41)
[2016-12-22] MEDS ORDERED: diphenhydrAMINE INJ 50MG/ML VIAL (J1200) IM STA (02:41)
[2016-12-22 07:27] LABS: MEAN CORPUSCULAR HEMOGLOBIN 31.5 pg (27.0-33.0); MEAN CORPUSCULAR HGB CONC 33.4 g/dl (32.0-36.5); MEAN CORPUSCULAR VOLUME 94.2 fl (80.0-96.0); RED CELL DISTRIBUTION WIDTH 13.1 % (11.5-14.5); WHITE BLOOD COUNT 8.7 K/mm3 (4.0-10.0)
[2016-12-22] MEDS ORDERED: DIVALPROEX SPRINKLE 125 MG CAP PO ONE ×2 (07:30→16:00)
[2016-12-22] MEDS ORDERED: LORazepam 0.5 MG TAB PO ONE (07:30)
[2016-12-22] MEDS ORDERED: QUEtiapine FUMARATE 25 MG TAB PO ONE ×3 (07:30→16:00)
[2016-12-22] MEDS ORDERED: MULTIVITAMINS/MINERALS THERAP 1 TAB PO ONE (07:30)
[2016-12-22] MEDS ORDERED: SERTRALINE HCL 50 MG TAB PO ONE (07:30)
[2016-12-22 07:52] LABS: ALBUMIN 3.7 GM/DL (3.2-5.2); ALBUMIN/GLOBULIN RATIO 1.16 (1.00-1.93); ALKALINE PHOSPHATASE 71 U/L (45-117); ALT/SGPT 22 U/L (12-78); ANION GAP 5 MEQ/L (8-16); AST/SGOT 20 U/L (15-37); BILIRUBIN,DIRECT < 0.1 MG/DL (0.0-0.2); BILIRUBIN,TOTAL 0.4 MG/DL (0.2-1.0); BLOOD UREA NITROGEN 17 MG/DL (7-18); CALCIUM LEVEL 8.9 MG/DL (8.8-10.2); CARBON DIOXIDE LEVEL 32 MEQ/L (21-32); CHLORIDE LEVEL 108 MEQ/L (98-107); CREATININE FOR GFR 1.01 MG/DL (0.70-1.30); GLOMERULAR FILTRATION RATE > 60.0 (>35); GLUCOSE, FASTING 81 MG/DL (83-110); POTASSIUM SERUM 4.6 MEQ/L (3.5-5.1); SODIUM LEVEL 145 MEQ/L (136-145); TOTAL PROTEIN 6.9 GM/DL (6.4-8.2)
[2016-12-22] MEDS: MIDODRINE 5 MG TAB PO SCH ×3 (08:09→15:59)
[2016-12-22] MEDS: DONEPEZIL 5 MG TAB PO SCH (08:09)
[2016-12-22] MEDS: MEMANTINE 5MG TABLET (NAMENDA) PO SCH (08:09)
[2016-12-22 08:33] LABS: METHADONE URINE NEGATIVE (NEGATIVE)
[2016-12-22] MEDS: LORazepam 0.5 MG TAB PO SCH (09:00)
[2016-12-22] MEDS: DOCUSATE SODIUM 100 MG CAP PO SCH (09:00)
[2016-12-22] MEDS: SERTRALINE HCL 50 MG TAB PO SCH (09:00)
[2016-12-22] MEDS: MIRALAX *UNIT DOSE* 17GM PACKET PO SCH (09:00)
[2016-12-22] MEDS ORDERED: LORazepam 2 MG/ML VIAL (J2060) IM STA (14:26)
[2016-12-22] MEDS ORDERED: QUET1TAB7 PO (14:53)
[2016-12-22 15:25] VITALS: BP 130/67
[2016-12-22] MEDS ORDERED: TYLE325T5 PO (15:50)
[2016-12-22] MEDS ORDERED: ACEP650S PR (15:50)
[2016-12-22] MEDS ORDERED: MILKSUS5 PO (15:50)
[2016-12-22] MEDS ORDERED: BISA10SU4 PR (15:50)
[2016-12-22] MEDS ORDERED: LORA0.5T11 PO (15:57)
[2016-12-22] MEDS ORDERED: ENEMENE16 PR (15:58)
[2016-12-22] MEDS: DIVALPROEX 125 MG TAB PO SCH ×2 (16:00→21:15)
--- NOTE | 2016-12-22 18:36 | HPEPDOC ---
Medical History and Physical Date of Admission Dec 22, 2016 at 14:26 History and Physical PRIMARY CARE PROVIDER: [Dr. Wilson] ATTENDING: Dr. Bhat CHIEF COMPLAINT: [Worsening and altered mental status with increasing aggressiveness] HISTORY OF PRESENT ILLNESS: [Difficulty ascertain from the patient. Mr. Reza is a patient of [facility] who is became increasingly aggressive and striking out against her personal residence. I had a lengthy discussion with Dr. Wilson today regarding the patient's need for further medication adjustments. He does have an underlying history of Lewy body dementia. Please refer to notes from the group home that accompanies the patient.] PAST MEDICAL HISTORY: Hyperlipidemia Diverticulosis BPH GERD History of fall Dementia Depression PAST SURGICAL HISTORY: Cataract Colonoscopies, most recent 2014 SOCIAL HISTORY: * Smoker: non-smoker Alcohol: denies Drugs: denies Recent Travel/Sick Contacts: Denies: Recent travel Psychosocial History: Dementia, Depression Independently lives with his , they have no pets. Patient is retired. FAMILY HISTORY: Noncontributory ALLERGIES: Please see below. REVIEW OF SYSTEMS: Unable to obtain HOME MEDICATIONS: Please see below. PHYSICAL EXAMINATION: GENERAL APPEARANCE: [No acute distress but confused]. HEENT: [Unremarkable]. CARDIOVASCULAR: [Regular rhythm]. LUNGS: [Clear to auscultation bilaterally]. ABDOMEN: [Soft, nontender. Positive bowel sounds. No masses. No rebound]. MUSCULOSKELETAL: [Unremarkable]. EXTREMITIES: [No edema]. NEUROLOGICAL: [Grossly appears to be intact with no motor sensory deficits]. LABORATORY DATA: See below. ASSESSMENT: [ 1. Increased agitation with underlying Lewy body dementia appears to be fairly progressive. 2. Hyperlipidemia 3. Diverticulosis 4. BPH 5. GERD 6. History of fall 7. Depression]. . PLAN: [Lengthy discussion with his primary care team. The patient will be admitted to the medical surgical floor. We will make some adjustments in his Seroquel. Continue on Haldol by mouth with when necessary IV Ativan for breakthrough agitation. Disposition: PFS consult will be placed and the patient likely will need placement in a facility that is familiar with taking care of patients with advanced dementia and agitation. ]. Vital Signs Vital Signs Date Time Temp Pulse Resp B/P (MAP) Pulse Ox O2 Delivery O2 Flow Rate FiO2 12/22/16 15:33 97.6 12/22/16 15:14 74 17 94 Laboratory Data Labs 24H Laboratory Tests 2 12/22/16 07:16: Anion Gap 5L, Glomerular Filtration Rate > 60.0, Calcium Level 8.9, Aspartate Amino Transf (AST/SGOT) 20, Alanine Aminotransferase (ALT/SGPT) 22, Alkaline Phosphatase 71, Total Bilirubin 0.4, Direct Bilirubin < 0.1, Total Protein 6.9, Albumin 3.7, Albumin/Globulin Ratio 1.16, Thyroid Stimulating Hormone (TSH) 4.270H, Salicylates Level < 1.7L, Acetaminophen Level < 2.0L, Valproic Acid ( Depakene) Level 29.5L, Ethyl Alcohol Level < 0.003 12/22/16 07:49: Urine Amphetamines Screen NEGATIVE, Urine Benzodiazepines Screen NEGATIVE, Urine Opiates Screen NEGATIVE, Urine Methadone Screen NEGATIVE, Urine Barbiturates Screen NEGATIVE, Urine Phencyclidine Screen NEGATIVE, Urine Cocaine Metabolite Screen NEGATIVE, Urine Cannabinoids Screen NEGATIVE CBC/BMP Laboratory Tests 12/22/16 07:16 Red Blood Count 4.36, Mean Corpuscular Volume 94.2, Mean Corpuscular Hemoglobin 31.5, Mean Corpuscular Hemoglobin Concent 33.4, Red Cell Distribution Width 13.1 Home Medications Scheduled Atorvastatin Calcium (Lipitor) 20 Mg Tab, 10 MG PO Q2D AT QHS Divalproex Sodium (Depakote Sprinkles) 125 Mg Cap, 125 MG PO TID Donepezil Hydrochloride (Aricept) 5 Mg Tab, 5 MG PO QHS Lorazepam (Lorazepam) 0.5 Mg Tab, 0.5 MG PO DAILY GIVEN AT 1300 Memantine Hydrochloride (Namenda) 10 Mg Tab, 10 MG PO BID Midodrine HCl (Midodrine HCl) 5 Mg Tab, 5 MG PO TID Multivitamins *[facility] STOCKED* (Thera M Plus *[facility] STOCKED*) 1 Tab Tab, 1 TAB PO DAILY Polyethylene Glycol (Miralax) 1 Pow Pow, 17 GM PO Q2D Quetiapine Fumerate (Quetiapine Fumarate) 25 Mg Tab, 25 MG PO TID Sertraline Hcl (Sertraline HCl) 50 Mg Tab, 50 MG PO DAILY Scheduled PRN Acetaminophen (Tylenol) 325 Mg Tab, 650 MG PO Q4H PRN for PAIN OR FEVER Acetaminophen (Acephen) 650 Mg Sup, 650 MG KS Q4H PRN for DISCOMFORT Bisacodyl (Bisacodyl) 10 Mg Sup, 10 MG KS for CONSTIPATION Docusate Sodium (Docusate Sodium) 100 Mg Cap, 100 MG PO DAILY PRN for CONSTIPATION Lorazepam (Lorazepam) 0.5 Mg Tab, 0.5 MG PO Q6H PRN for AGITATION Magnesium Hydroxide (Milk of Magnesia 400 mg/5Ml) 1 Kiara Kiara, 10 ML PO for CONSTIPATION Sodium Phosphate/Biphosphate (Enema 7-19 gm/118Ml) 1 Shyla Shyla, 1 SHYLA KS for CONSTIPATION Allergies Coded Allergies: No Known Allergies (Unverified , 11/22/16) AUSTIN BAILEY DO Dec 22, 2016 18:36
[2016-12-22] MEDS: QUEtiapine FUMARATE 50 MG TAB PO SCH (21:07)
[2016-12-22] MEDS: ATORVASTATIN 10 MG TAB PO SCH (21:15)
[2016-12-22 22:00] VITALS: BP 137/67
--- NOTE | 2016-12-23 05:54 | ECGEPIP ---
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
[2016-12-23 06:00] VITALS: BP 133/60
[2016-12-23] MEDS: MIDODRINE 5 MG TAB PO SCH ×3 (09:00→18:13)
--- NOTE | 2016-12-23 10:34 | IPNPDOC ---
Subjective Date Seen The patient was seen on 12/23/16. Subjective Chief Complaint/HPI The patient is a 86-year-old male admitted with a reason for visit of Dementia With Behavioral Disturbance. Events since last encounter Patient given Seroquel 50 mg and Ativan last pm. sleeping now (went to sleep around 4 am) Constitutional: Denies: Chills, Fever Pulmonary: Denies: Dyspnea, Cough Cardiovascular: Denies: Chest Pain Gastrointestinal: Denies: Nausea, Vomiting, Abdominal Pain, Diarrhea, Constipation Objective Physical Examination General Exam: Positive: Other (sleeping comfortably with normal respirations) Chest Exam: Positive: Clear to auscultation, Normal air movement Heart Exam: Positive: Rate Normal, Regular Rhythm Abdomen Exam: Positive: Normal bowel sounds, Soft, Negative: Tenderness Extremity Exam: Negative: Edema Assessment /Plan Problems (1) Dementia with behavioral disturbance Status: Chronic Response to Treatment: Worse Problem Text: Medication adjustments made in effort to control violent outbursts. Await PFS input regarding placement options - may not be able to go back to [facility] if having violent outbursts (2) Altered mental status Status: Chronic (3) Hypotension Status: Chronic Response to Treatment: Stable Problem Text: on Midodrine Plan/VTE VTE Prophylaxis Ordered?: Yes (start Lovenox) VS, I&O, 24H, Fishbone Vital Signs/I&O Vital Signs Date Time Temp Pulse Resp B/P (MAP) Pulse Ox O2 Delivery O2 Flow Rate FiO2 12/23/16 06:00 98.4 71 15 133/60 (84) 94 Room Air I&O- Last 24 Hours up to 6 AM 12/23/16 06:00 Intake Total 480 ml Balance 480 ml ALBERTO MALDONADO PA-C Dec 23, 2016 10:34
[2016-12-23] MEDS: LORazepam 0.5 MG TAB PO SCH (11:23)
[2016-12-23] MEDS: MIRALAX *UNIT DOSE* 17GM PACKET PO SCH (11:24)
[2016-12-23] MEDS: DOCUSATE SODIUM 100 MG CAP PO SCH (11:24)
[2016-12-23] MEDS: MEMANTINE 5MG TABLET (NAMENDA) PO SCH (11:25)
[2016-12-23] MEDS: SERTRALINE HCL 50 MG TAB PO SCH (11:25)
[2016-12-23] MEDS: QUEtiapine FUMARATE 50 MG TAB PO SCH ×3 (11:27→19:56)
[2016-12-23] MEDS: ENOXAPARIN 40 MG/0.4 ML SYRINGE (J1650) SC SCH (11:27)
[2016-12-23] MEDS: DONEPEZIL 5 MG TAB PO SCH (11:28)
[2016-12-23] MEDS: DIVALPROEX 125 MG TAB PO SCH ×3 (11:30→19:56)
[2016-12-23 14:00] VITALS: BP 126/59
[2016-12-23] MEDS: ATORVASTATIN 10 MG TAB PO SCH (19:57)
[2016-12-23 22:00] VITALS: BP 107/56
[2016-12-24 06:00] VITALS: BP 123/64
[2016-12-24] MEDS: DOCUSATE SODIUM 100 MG CAP PO SCH (09:00)
[2016-12-24] MEDS: MIRALAX *UNIT DOSE* 17GM PACKET PO SCH (09:00)
[2016-12-24] MEDS: ENOXAPARIN 40 MG/0.4 ML SYRINGE (J1650) SC SCH (09:00)
[2016-12-24] MEDS: MEMANTINE 5MG TABLET (NAMENDA) PO SCH (09:48)
[2016-12-24] MEDS: LORazepam 0.5 MG TAB PO SCH (09:48)
[2016-12-24] MEDS: QUEtiapine FUMARATE 50 MG TAB PO SCH ×3 (09:48→20:21)
[2016-12-24] MEDS: SERTRALINE HCL 50 MG TAB PO SCH (09:48)
[2016-12-24] MEDS: DONEPEZIL 5 MG TAB PO SCH (09:48)
[2016-12-24] MEDS: MIDODRINE 5 MG TAB PO SCH ×3 (09:48→17:45)
[2016-12-24] MEDS: DIVALPROEX 125 MG TAB PO SCH ×3 (09:48→20:21)
[2016-12-24 14:00] VITALS: BP 127/61
[2016-12-24] MEDS: HALOPERIDOL 5 MG TAB PO PRN ×2 (17:45→22:27)
[2016-12-24] MEDS: ATORVASTATIN 10 MG TAB PO SCH (20:21)
[2016-12-24 22:00] VITALS: BP 112/70
--- NOTE | 2016-12-25 01:36 | IPNPDOC ---
Subjective Date Seen The patient was seen on 12/25/16. Subjective Chief Complaint/HPI The patient is a 86-year-old male admitted with a reason for visit of Dementia With Behavioral Disturbance. Events since last encounter Nursing and GENE report that patient becomes agitated at times, but thus far they have been able to handle his behaviors with redirection. Visual observation staff in particular notes that he can be unpredictable -- he will quickly get to his feet mid-conversation and without hint of what he will do next, but has not been violent or thrown objects. General: Reports: ROS Unobtainable Objective Physical Examination General Exam: Positive: Alert, Cooperative Chest Exam: Positive: Clear to auscultation, Normal air movement Heart Exam: Positive: Rate Normal, Regular Rhythm Abdomen Exam: Positive: Normal bowel sounds, Soft, Negative: Tenderness Extremity Exam: Negative: Edema Assessment /Plan Problems (1) Dementia with behavioral disturbance Status: Chronic Response to Treatment: Worse Problem Text: Medication adjustments made in effort to control violent outbursts. Await PFS input regarding placement options - may not be able to go back to [facility] if having violent outbursts (2) Altered mental status Status: Chronic (3) Hypotension Status: Chronic Response to Treatment: Stable Problem Text: on Midodrine Plan/VTE VTE Prophylaxis Ordered?: Yes (start Lovenox) VS, I&O, 24H, Fishbone Vital Signs/I&O Vital Signs Date Time Temp Pulse Resp B/P (MAP) Pulse Ox O2 Delivery O2 Flow Rate FiO2 12/24/16 22:00 97.9 101 20 112/70 (84) 95 Room Air I&O- Last 24 Hours up to 6 AM 12/25/16 06:00 Intake Total 240 ml Balance 240 ml SONJA GONSALES DO Dec 25, 2016 01:36
[2016-12-25 06:00] VITALS: BP 121/65
[2016-12-25] MEDS: MIRALAX *UNIT DOSE* 17GM PACKET PO SCH (08:20)
[2016-12-25] MEDS: DOCUSATE SODIUM 100 MG CAP PO SCH (08:35)
[2016-12-25] MEDS: LORazepam 0.5 MG TAB PO SCH (08:35)
[2016-12-25] MEDS: DIVALPROEX 125 MG TAB PO SCH ×3 (08:35→19:58)
[2016-12-25] MEDS: MEMANTINE 5MG TABLET (NAMENDA) PO SCH (08:35)
[2016-12-25] MEDS: SERTRALINE HCL 50 MG TAB PO SCH (08:36)
[2016-12-25] MEDS: DONEPEZIL 5 MG TAB PO SCH (08:36)
[2016-12-25] MEDS: ENOXAPARIN 40 MG/0.4 ML SYRINGE (J1650) SC SCH (08:36)
[2016-12-25] MEDS: QUEtiapine FUMARATE 50 MG TAB PO SCH ×3 (08:36→19:58)
[2016-12-25] MEDS: MIDODRINE 5 MG TAB PO SCH ×3 (08:36→17:33)
[2016-12-25] MEDS: HALOPERIDOL 5 MG TAB PO PRN (12:25)
[2016-12-25 14:00] VITALS: BP 119/69
[2016-12-25] MEDS: HALOPERIDOL 2 MG TAB PO SCH (15:00)
--- NOTE | 2016-12-25 18:48 | IPNPDOC ---
Subjective Date Seen The patient was seen on 12/25/16. Subjective Chief Complaint/HPI The patient is a 86-year-old male admitted with a reason for visit of Dementia With Behavioral Disturbance. Events since last encounter Patient agitated and aggressive yesterday afternoon/nigh, unsettled but not aggressive this a.m. Nursing notes patient often agitated around 4:00 p.m. General: Reports: ROS Unobtainable Objective Physical Examination General Exam: Positive: Alert, Cooperative Chest Exam: Positive: Clear to auscultation, Normal air movement Heart Exam: Positive: Rate Normal, Regular Rhythm Abdomen Exam: Positive: Normal bowel sounds, Soft, Negative: Tenderness Extremity Exam: Negative: Edema Assessment /Plan Problems (1) Dementia with behavioral disturbance Status: Chronic Response to Treatment: Worse Problem Text: 12/25 -- added a small scheduled dose of Haldol at 3:00 p.m. to try and control 4:00 p.m. behavior. Medication adjustments made in effort to control violent outbursts. Await PFS input regarding placement options - may not be able to go back to [facility] if having violent outbursts (2) Altered mental status Status: Chronic Problem Text: It appears that this is simply the patient's underlying, advancing dementia. (3) Hypotension Status: Chronic Response to Treatment: Stable Problem Text: on Midodrine Plan/VTE VTE Prophylaxis Ordered?: Yes (start Lovenox) VS, I&O, 24H, Fishbone Vital Signs/I&O Vital Signs Date Time Temp Pulse Resp B/P (MAP) Pulse Ox O2 Delivery O2 Flow Rate FiO2 12/25/16 06:00 97.6 94 20 121/65 (83) 94 Room Air I&O- Last 24 Hours up to 6 AM 12/25/16 06:00 Intake Total 480 ml Balance 480 ml SONJA GONSALES DO Dec 25, 2016 18:48
[2016-12-25] MEDS: ATORVASTATIN 10 MG TAB PO SCH (19:58)
[2016-12-25 22:00] VITALS: BP 102/55
[2016-12-26 06:00] VITALS: BP 112/59
[2016-12-26 06:54] LABS: MEAN CORPUSCULAR HEMOGLOBIN 31.6 pg (27.0-33.0); RED CELL DISTRIBUTION WIDTH 13.3 % (11.5-14.5); WHITE BLOOD COUNT 5.4 K/mm3 (4.0-10.0)
--- NOTE | 2016-12-26 08:26 | IPNPDOC ---
Subjective Date Seen The patient was seen on 12/26/16. Subjective Chief Complaint/HPI The patient is a 86-year-old male admitted with a reason for visit of Dementia With Behavioral Disturbance. Events since last encounter Pt asleep in bed. Sitter at bedside. Nursing reports a restful night for the pt without behavioral outbursts. General: Reports: ROS Unobtainable Objective Physical Examination General Exam: Positive: Alert (pt asleep when I entered the room, the awakens easily, denies pain.), Cooperative ENT Exam: Positive: Mucous membr. moist/pink Chest Exam: Positive: Clear to auscultation, Normal air movement Heart Exam: Positive: Rate Normal, Regular Rhythm Abdomen Exam: Positive: Normal bowel sounds, Soft, Negative: Tenderness Extremity Exam: Negative: Edema Assessment /Plan Problems (1) Dementia with behavioral disturbance Status: Chronic Response to Treatment: Worse Problem Text: 12/26 - seems to tolerate the Haldol yest afternoon, will cont to monitor, if remains stable and without behavioral outbursts, will plan to d/c to [facility] tomorrow 12/27 (alternatively could just titrate qhs quetiapine-less EPS se) 12/25 -- added a small scheduled dose of Haldol at 3:00 p.m. to try and control 4 :00 p.m. behavior. Medication adjustments made in effort to control violent outbursts. Await PFS input regarding placement options - may not be able to go back to [facility] if having violent outbursts (2) Altered mental status Status: Chronic Problem Text: It appears that this is simply the patient's underlying, advancing dementia. (3) Hypotension Status: Chronic Response to Treatment: Stable Problem Text: on Midodrine Plan/VTE VTE Prophylaxis Ordered?: Yes (start Lovenox) VS, I&O, 24H, Fishbone Vital Signs/I&O Vital Signs Date Time Temp Pulse Resp B/P (MAP) Pulse Ox O2 Delivery O2 Flow Rate FiO2 12/26/16 06:00 97.4 71 18 112/59 (76) 94 Room Air I&O- Last 24 Hours up to 6 AM 12/26/16 06:00 Intake Total 480 ml Balance 480 ml Laboratory Data CBC/BMP Laboratory Tests 12/26/16 06:40 Red Blood Count 4.25 L, Mean Corpuscular Volume 96.0, Mean Corpuscular Hemoglobin 31.6, Mean Corpuscular Hemoglobin Concent 33.0, Red Cell Distribution Width 13.3 TRINI STEEL PA-C Dec 26, 2016 08:26 Pablo Bowers M.D. Dec 26, 2016 14:15
[2016-12-26] MEDS: QUEtiapine FUMARATE 50 MG TAB PO SCH ×3 (08:36→19:39)
[2016-12-26] MEDS: SERTRALINE HCL 50 MG TAB PO SCH (08:37)
[2016-12-26] MEDS: DOCUSATE SODIUM 100 MG CAP PO SCH (08:37)
[2016-12-26] MEDS: LORazepam 0.5 MG TAB PO SCH (08:37)
[2016-12-26] MEDS: DONEPEZIL 5 MG TAB PO SCH (08:37)
[2016-12-26] MEDS: MEMANTINE 5MG TABLET (NAMENDA) PO SCH (08:38)
[2016-12-26] MEDS: ENOXAPARIN 40 MG/0.4 ML SYRINGE (J1650) SC SCH (08:38)
[2016-12-26] MEDS: MIRALAX *UNIT DOSE* 17GM PACKET PO SCH (08:38)
[2016-12-26] MEDS: MIDODRINE 5 MG TAB PO SCH ×3 (08:38→15:36)
[2016-12-26] MEDS: DIVALPROEX 125 MG TAB PO SCH ×3 (10:18→19:08)
[2016-12-26 14:00] VITALS: BP 131/65
[2016-12-26] MEDS: HALOPERIDOL 2 MG TAB PO SCH ×2 (15:36→19:08)
[2016-12-26] MEDS: LORazepam 2 MG/ML VIAL (J2060) IM PRN (18:05)
[2016-12-26] MEDS: ACETAMINOPHEN TAB 650MG DOSE (2X325MG) PO PRN (19:40)
[2016-12-26] MEDS: ATORVASTATIN 10 MG TAB PO SCH (19:40)
[2016-12-27 06:00] VITALS: BP 102/56
[2016-12-27] MEDS: MIDODRINE 5 MG TAB PO SCH ×3 (08:09→16:05)
[2016-12-27] MEDS: LORazepam 0.5 MG TAB PO SCH (08:09)
[2016-12-27] MEDS: SERTRALINE HCL 50 MG TAB PO SCH (08:09)
[2016-12-27] MEDS: DONEPEZIL 5 MG TAB PO SCH (08:09)
[2016-12-27] MEDS: DOCUSATE SODIUM 100 MG CAP PO SCH (08:09)
[2016-12-27] MEDS: MIRALAX *UNIT DOSE* 17GM PACKET PO SCH (08:09)
[2016-12-27] MEDS: ENOXAPARIN 40 MG/0.4 ML SYRINGE (J1650) SC SCH (08:09)
[2016-12-27] MEDS: DIVALPROEX 125 MG TAB PO SCH ×3 (08:09→21:07)
[2016-12-27] MEDS: QUEtiapine FUMARATE 50 MG TAB PO SCH ×2 (08:09→16:05)
[2016-12-27] MEDS: MEMANTINE 5MG TABLET (NAMENDA) PO SCH (08:09)
--- NOTE | 2016-12-27 10:13 | IPNPDOC ---
Subjective Date Seen The patient was seen on 12/27/16. Subjective Chief Complaint/HPI The patient is a 86-year-old male admitted with a reason for visit of Dementia With Behavioral Disturbance. Events since last encounter Per nursing, the pt had an aggressive outburst last night about 6 PM just after his left, he received IM Haldol as a result. General: Denies: Fatigue Constitutional: Denies: Chills, Fever Pulmonary: Denies: Dyspnea, Cough Cardiovascular: Denies: Chest Pain, Palpitations Gastrointestinal: Denies: Nausea, Vomiting, Diarrhea Psych: Reports: Memory Issues Objective Physical Examination General Exam: Positive: Alert (ambulating in the halls, cooperative), Cooperative ENT Exam: Positive: Mucous membr. moist/pink Chest Exam: Positive: Clear to auscultation, Normal air movement Heart Exam: Positive: Rate Normal, Regular Rhythm Abdomen Exam: Positive: Normal bowel sounds, Soft, Negative: Tenderness Extremity Exam: Negative: Edema Assessment /Plan Problems (1) Dementia with behavioral disturbance Status: Chronic Response to Treatment: Worse Problem Text: 12/27 - Plan was for d/c back to [facility] today, spoke with nursing about outburst, he improved with the Haldol IM last night, need to try to prevent these for the safety of staff and other residents. He had a dose of Haldol given at 3 pm which was started just yesterday to prevent these, will change Seroquel from 50 TID to 50/50/150 (much less EPS profile and is already on baseline) 12/26 - seems to tolerate the Haldol yest afternoon, will cont to monitor, if remains stable and without behavioral outbursts, will plan to d/c to [facility] tomorrow 12/27 (alternatively could just titrate qhs quetiapine-less EPS se) 12/25 -- added a small scheduled dose of Haldol at 3:00 p.m. to try and control 4 :00 p.m. behavior. Medication adjustments made in effort to control violent outbursts. (2) Altered mental status Status: Chronic Problem Text: It appears that this is simply the patient's underlying, advancing dementia. (3) Hypotension Status: Chronic Response to Treatment: Stable Problem Text: on Midodrine Plan/VTE VTE Prophylaxis Ordered?: Yes (start Lovenox) VS, I&O, 24H, Fishbone Vital Signs/I&O Vital Signs Date Time Temp Pulse Resp B/P (MAP) Pulse Ox O2 Delivery O2 Flow Rate FiO2 12/27/16 06:00 98.3 64 18 102/56 (71) 95 12/26/16 20:00 Room Air I&O- Last 24 Hours up to 6 AM 12/27/16 05:59 Intake Total 2040 ml Output Total 0 ml Balance 2040 ml Laboratory Data 24H LABS Laboratory Tests 2 12/26/16 15:26: Vitamin B12 Level 559 CBC/BMP Laboratory Tests 12/26/16 15:26 TRINI STEEL PA-C Dec 27, 2016 10:13 Pablo Bowers M.D. Dec 27, 2016 15:32
[2016-12-27 12:45] LABS: PRETREATED FOLATE FOR RBCFOL 12.1 NG/ML
[2016-12-27 14:00] VITALS: BP 111/66
[2016-12-27] MEDS ORDERED: HALOPERIDOL 2 MG TAB PO SCH (15:00)
[2016-12-27] MEDS: HALOPERIDOL 5 MG TAB PO PRN (21:07)
[2016-12-27] MEDS: ATORVASTATIN 10 MG TAB PO SCH (21:07)
[2016-12-27 22:00] VITALS: BP 152/79
[2016-12-28 06:00] VITALS: BP 121/59
[2016-12-28] MEDS: LORazepam 0.5 MG TAB PO SCH (09:02)
[2016-12-28] MEDS: DONEPEZIL 5 MG TAB PO SCH (09:02)
[2016-12-28] MEDS: ENOXAPARIN 40 MG/0.4 ML SYRINGE (J1650) SC SCH (09:02)
[2016-12-28] MEDS: SERTRALINE HCL 50 MG TAB PO SCH (09:02)
[2016-12-28] MEDS: MEMANTINE 5MG TABLET (NAMENDA) PO SCH (09:02)
[2016-12-28] MEDS: DOCUSATE SODIUM 100 MG CAP PO SCH (09:02)
[2016-12-28] MEDS: QUEtiapine FUMARATE 50 MG TAB PO SCH ×3 (09:02→16:32)
[2016-12-28] MEDS: MIDODRINE 5 MG TAB PO SCH ×3 (09:02→16:32)
[2016-12-28] MEDS: MIRALAX *UNIT DOSE* 17GM PACKET PO SCH (09:02)
[2016-12-28] MEDS: DIVALPROEX 125 MG TAB PO SCH ×3 (10:10→21:12)
--- NOTE | 2016-12-28 10:18 | IPNPDOC ---
Subjective Date Seen The patient was seen on 12/28/16. Subjective Chief Complaint/HPI The patient is a 86-year-old male admitted with a reason for visit of Dementia With Behavioral Disturbance. Events since last encounter Pt denies any pain. Pulmonary: Denies: Dyspnea Cardiovascular: Denies: Chest Pain Gastrointestinal: Denies: Abdominal Pain Objective Physical Examination General Exam: Positive: Alert (ambulating in the halls, cooperative), Cooperative ENT Exam: Positive: Mucous membr. moist/pink Chest Exam: Positive: Clear to auscultation, Normal air movement Heart Exam: Positive: Rate Normal, Regular Rhythm Abdomen Exam: Positive: Normal bowel sounds, Soft, Negative: Tenderness Extremity Exam: Negative: Edema Assessment /Plan Problems (1) Dementia with behavioral disturbance Status: Chronic Response to Treatment: Worse Problem Text: 12/28 - I spoke to Dr Leslie who states he feels that pt cannot be d/c'ed back to [facility] until he is without prn meds for behavioral disturbances for 24 hours. Pt did require PO Haldol during the night for behavioral disturbance. Dr Leslie states he has been working on another long -term care facility for the patient at least temporarily. 12/27 - Plan was for d/c back to [facility] today, spoke with nursing about outburst, he improved with the Haldol IM last night, need to try to prevent these for the safety of staff and other residents. He had a dose of Haldol given at 3 pm which was started just yesterday to prevent these, will change Seroquel from 50 TID to 50/50/150 (much less EPS profile and is already on baseline) 12/26 - seems to tolerate the Haldol yest afternoon, will cont to monitor, if remains stable and without behavioral outbursts, will plan to d/c to [facility] tomorrow 12/27 (alternatively could just titrate qhs quetiapine-less EPS se) 12/25 -- added a small scheduled dose of Haldol at 3:00 p.m. to try and control 4 :00 p.m. behavior. Medication adjustments made in effort to control violent outbursts. (2) Altered mental status Status: Chronic Problem Text: It appears that this is simply the patient's underlying, advancing dementia. (3) Hypotension Status: Chronic Response to Treatment: Stable Problem Text: on Midodrine Plan/VTE VTE Prophylaxis Ordered?: Yes (start Lovenox) Plan Family medicine attending note: I saw and examined Mr. Reza this morning and this afternoon; he was cooperative with my exam but was not oriented to person, place, or situation, which is consistent with his baseline. I discussed the case with MARGARET Izquierdo and I agree with his note above. Patient received a dose of haldol last night for agitation. He also was agitated this afternoon but was able to be redirected. I increased his seroquel dosing to 100 mg at 0900 and 1200 and continued 150 mg dose at 1600. (KES) VS, I&O, 24H, Fishbone Vital Signs/I&O Vital Signs Date Time Temp Pulse Resp B/P (MAP) Pulse Ox O2 Delivery O2 Flow Rate FiO2 12/28/16 06:00 96.9 58 18 121/59 (79) 98 Room Air I&O- Last 24 Hours up to 6 AM 12/28/16 05:59 Intake Total 960 ml Output Total 350 ml Balance 610 ml Joseph Rome RPA-C Dec 28, 2016 10:18 JAKE PATINO MD Dec 28, 2016 15:42
[2016-12-28 14:00] VITALS: BP 120/70
[2016-12-28] MEDS: HALOPERIDOL 5 MG TAB PO PRN ×2 (14:34→19:32)
[2016-12-28] MEDS: ATORVASTATIN 10 MG TAB PO SCH (21:12)
[2016-12-28 22:00] VITALS: BP 108/56
[2016-12-29 06:05] LABS: MEAN CORPUSCULAR HEMOGLOBIN 30.9 pg (27.0-33.0); MEAN CORPUSCULAR HGB CONC 32.8 g/dl (32.0-36.5); MEAN CORPUSCULAR VOLUME 94.4 fl (80.0-96.0); RED CELL DISTRIBUTION WIDTH 13.1 % (11.5-14.5); WHITE BLOOD COUNT 6.1 K/mm3 (4.0-10.0)
[2016-12-29] MEDS: MIRALAX *UNIT DOSE* 17GM PACKET PO SCH (08:10)
[2016-12-29] MEDS: ENOXAPARIN 40 MG/0.4 ML SYRINGE (J1650) SC SCH (08:11)
[2016-12-29] MEDS: MEMANTINE 5MG TABLET (NAMENDA) PO SCH (08:12)
[2016-12-29] MEDS: MIDODRINE 5 MG TAB PO SCH ×3 (08:12→15:56)
[2016-12-29] MEDS: DOCUSATE SODIUM 100 MG CAP PO SCH (08:12)
[2016-12-29] MEDS: SERTRALINE HCL 50 MG TAB PO SCH (08:12)
[2016-12-29] MEDS: DIVALPROEX 125 MG TAB PO SCH ×3 (08:12→20:39)
[2016-12-29] MEDS: DONEPEZIL 5 MG TAB PO SCH (08:13)
[2016-12-29] MEDS: QUEtiapine FUMARATE 100 MG TAB PO SCH ×2 (08:13→12:38)
[2016-12-29] MEDS: LORazepam 0.5 MG TAB PO SCH (08:13)
[2016-12-29 14:00] VITALS: BP 145/81
[2016-12-29] MEDS: QUEtiapine FUMARATE 50 MG TAB PO SCH (15:57)
[2016-12-29] MEDS: HALOPERIDOL 5 MG TAB PO PRN (18:26)
[2016-12-29] MEDS: ATORVASTATIN 10 MG TAB PO SCH (20:39)
[2016-12-29 22:00] VITALS: BP 105/61
--- NOTE | 2016-12-29 23:16 | DSES ---
DATE OF ADMISSION: 12/23/2016 DATE OF TRANSFER TO SNF: 12/29/2016 LONG TERM FACILITY (SNF) SUMMARY: PRIMARY CARE PROVIDER: Dr. Brown Leslie ATTENDING TODAY: Dr. Pablo Bowers HISTORY: This is an 86-year-old male patient who has been a resident over at [facility] and was transferred to [facility] Emergency Room secondary to aggressive abusive behaviors demonstrated towards staff and other residents at [facility] secondary to his advancing dementia. During his hospitalization, he has remained medically stable. He continues to have issues with abusive and aggressive behaviors between the hours of 3:00 p.m. and 9:00 p.m. We have consistently titrated his medication in order to accommodate for these currently and his most recent change has been increasing his Seroquel dose from 50 mg at 9:00 a.m. and 12:00 noon to 100 mg at 9:00 a.m. and 12:00 noon. This change was made yesterday. We will see how he does on this dose and continue to make changes as needed. He does have orders for Haldol by mouth (p.o.) and Ativan intramuscularly (IM). Rakan Rome spoke with Dr. Leslie yesterday, who advised that the patient will not be able to come back over to [facility] until he is no longer having these abusive and aggressive episodes. Patient and family services (PFS) is involved. They are working on alternative placement options for this patient as well. We will continue to work on controlling these behaviors with medications without oversedating the patient while he remains at [facility]. His discharge diagnoses include: Advancing dementia with severe behavior disturbance. Altered mental status. Hypotension, which is chronic. Medications and plan will be summarized at the time of discharge from the hospital.
[2016-12-30 06:00] VITALS: BP 119/68
[2016-12-30] MEDS: MIDODRINE 5 MG TAB PO SCH ×3 (08:17→16:23)
[2016-12-30] MEDS: SERTRALINE HCL 50 MG TAB PO SCH (08:17)
[2016-12-30] MEDS: QUEtiapine FUMARATE 100 MG TAB PO SCH ×2 (08:17→12:22)
[2016-12-30] MEDS: MIRALAX *UNIT DOSE* 17GM PACKET PO SCH (08:17)
[2016-12-30] MEDS: DONEPEZIL 5 MG TAB PO SCH (08:17)
[2016-12-30] MEDS: DIVALPROEX 125 MG TAB PO SCH ×3 (08:17→20:23)
[2016-12-30] MEDS: LORazepam 0.5 MG TAB PO SCH (08:17)
[2016-12-30] MEDS: DOCUSATE SODIUM 100 MG CAP PO SCH (08:17)
[2016-12-30] MEDS: ENOXAPARIN 40 MG/0.4 ML SYRINGE (J1650) SC SCH (08:17)
[2016-12-30] MEDS: MEMANTINE 5MG TABLET (NAMENDA) PO SCH (08:17)
[2016-12-30] MEDS: QUEtiapine FUMARATE 50 MG TAB PO SCH (16:23)
[2016-12-30] MEDS: HALOPERIDOL 5 MG TAB PO PRN (20:23)
[2016-12-30] MEDS: ATORVASTATIN 10 MG TAB PO SCH (20:23)
[2016-12-31 05:30] VITALS: BP 117/62
[2016-12-31] MEDS: DOCUSATE SODIUM 100 MG CAP PO SCH (09:45)
[2016-12-31] MEDS: MIDODRINE 5 MG TAB PO SCH ×3 (09:46→17:10)
[2016-12-31] MEDS: LORazepam 0.5 MG TAB PO SCH (09:46)
[2016-12-31] MEDS: MEMANTINE 5MG TABLET (NAMENDA) PO SCH (09:46)
[2016-12-31] MEDS: SERTRALINE HCL 50 MG TAB PO SCH (09:46)
[2016-12-31] MEDS: DIVALPROEX 125 MG TAB PO SCH ×3 (09:46→20:06)
[2016-12-31] MEDS: ENOXAPARIN 40 MG/0.4 ML SYRINGE (J1650) SC SCH (09:47)
[2016-12-31] MEDS: DONEPEZIL 5 MG TAB PO SCH (09:47)
[2016-12-31] MEDS: QUEtiapine FUMARATE 100 MG TAB PO SCH ×2 (09:47→12:29)
[2016-12-31] MEDS: MIRALAX *UNIT DOSE* 17GM PACKET PO SCH (09:47)
[2016-12-31] MEDS: LORazepam 2 MG/ML VIAL (J2060) IM PRN (14:09)
--- NOTE | 2016-12-31 14:41 | IPNPDOC ---
Subjective Date Seen The patient was seen on 12/31/16. Subjective Chief Complaint/HPI The patient is a 86-year-old male admitted with a reason for visit of Dementia With Behavioral Disturbance. Events since last encounter Patient continues to have episodes of aggressive behavior. Nursing indicates that they continue to be concerned for their safety. Constitutional: Denies: Chills, Fever Pulmonary: Denies: Dyspnea, Cough Cardiovascular: Denies: Chest Pain Neurological: Reports: Confusion Psych: Reports: Other Psych (increased agitation with aggressive behaviors, mostly at night) Objective Physical Examination General Exam: Positive: Alert, Cooperative, No Acute Distress ENT Exam: Positive: Mucous membr. moist/pink Chest Exam: Positive: Clear to auscultation, Normal air movement Heart Exam: Positive: Rate Normal, Regular Rhythm, Normal S1, Normal S2 Abdomen Exam: Positive: Normal bowel sounds, Soft, Negative: Tenderness Extremity Exam: Negative: Edema Neuro Exam: Positive: Normal Speech Psych Exam: Negative: Oriented x 3 (oriented to person) Assessment /Plan Problems (1) Dementia with behavioral disturbance Status: Chronic Response to Treatment: Worse Problem Text: Patient has required multiple when necessary doses of Haldol for aggressive episodes of agitation. He continues to have aggressive behaviors which are unsafe towards medical staff. -Scheduled Zyprexa 5 mg at bedtime -Continue Seroquel (2) Altered mental status Status: Chronic Problem Text: Alert and cooperative today, although with stable chronic advanced dementia. (3) Hypotension Status: Chronic Response to Treatment: Stable Problem Text: on Midodrine Plan/VTE VTE Prophylaxis Ordered?: Yes (start Lovenox) VS, I&O, 24H, Fishbone Vital Signs/I&O Vital Signs Date Time Temp Pulse Resp B/P (MAP) Pulse Ox O2 Delivery O2 Flow Rate FiO2 12/31/16 09:00 Room Air 12/31/16 05:30 97.5 75 17 117/62 (74) 94 I&O- Last 24 Hours up to 6 AM 12/31/16 06:00 Intake Total 1920 ml Output Total 0 ml Balance 1920 ml DAVID FLOREZ MD Dec 31, 2016 14:41
[2016-12-31] MEDS: QUEtiapine FUMARATE 50 MG TAB PO SCH (17:10)
[2016-12-31] MEDS: ATORVASTATIN 10 MG TAB PO SCH (20:06)
[2016-12-31] MEDS: OLANZapine 5 MG TAB PO SCH (20:06)
[2017-01-01 06:00] VITALS: BP 147/67
[2017-01-01] MEDS: DOCUSATE SODIUM 100 MG CAP PO SCH (08:09)
[2017-01-01] MEDS: MIDODRINE 5 MG TAB PO SCH ×3 (08:10→16:22)
[2017-01-01] MEDS: MEMANTINE 5MG TABLET (NAMENDA) PO SCH (08:10)
[2017-01-01] MEDS: DIVALPROEX 125 MG TAB PO SCH ×3 (08:10→21:09)
[2017-01-01] MEDS: MIRALAX *UNIT DOSE* 17GM PACKET PO SCH (08:10)
[2017-01-01] MEDS: ENOXAPARIN 40 MG/0.4 ML SYRINGE (J1650) SC SCH (08:11)
[2017-01-01] MEDS: SERTRALINE HCL 50 MG TAB PO SCH (08:11)
[2017-01-01 08:36] LABS: MEAN CORPUSCULAR HEMOGLOBIN 31.3 pg (27.0-33.0); MEAN CORPUSCULAR HGB CONC 33.4 g/dl (32.0-36.5); MEAN CORPUSCULAR VOLUME 93.8 fl (80.0-96.0); RED CELL DISTRIBUTION WIDTH 13.2 % (11.5-14.5); WHITE BLOOD COUNT 5.6 K/mm3 (4.0-10.0)
[2017-01-01] MEDS: LORazepam 0.5 MG TAB PO SCH (09:00)
[2017-01-01] MEDS: QUEtiapine FUMARATE 100 MG TAB PO SCH ×2 (09:00→12:27)
[2017-01-01] MEDS: DONEPEZIL 5 MG TAB PO SCH (09:00)
[2017-01-01] MEDS: LORazepam 2 MG/ML VIAL (J2060) IM PRN (12:27)
--- NOTE | 2017-01-01 13:16 | IPNPDOC ---
Subjective Date Seen The patient was seen on 01/01/17. Subjective Chief Complaint/HPI The patient is a 86-year-old male admitted with a reason for visit of Dementia With Behavioral Disturbance. Events since last encounter Nursing states that the patient did quite well last night with Zyprexa. Reports that he slept all night, and has not been combative. Patient denies any new problems with the medication, and reports feeling well. He has no complaints or concerns. Constitutional: Denies: Chills, Fever ENT: Denies: Head Aches Skin: Denies: Rash Pulmonary: Denies: Dyspnea, Cough Cardiovascular: Denies: Chest Pain, Palpitations Gastrointestinal: Denies: Nausea, Vomiting, Abdominal Pain, Diarrhea, Constipation Genitourinary: Denies: Dysuria, Frequency Neurological: Reports: Confusion Psych: Reports: Mood Normal Other systems 10 point review systems otherwise negative Objective Physical Examination General Exam: Positive: Alert, Cooperative, No Acute Distress ENT Exam: Positive: Mucous membr. moist/pink Chest Exam: Positive: Clear to auscultation, Normal air movement Heart Exam: Positive: Rate Normal, Regular Rhythm, Normal S1, Normal S2 Abdomen Exam: Positive: Normal bowel sounds, Soft, Negative: Tenderness Extremity Exam: Negative: Edema Neuro Exam: Positive: Normal Speech Psych Exam: Positive: Oriented x 3 (oriented to person; believes that we are in a parlor and it is 2018) Assessment /Plan Problems (1) Dementia with behavioral disturbance Status: Chronic Response to Treatment: Worse Problem Text: Patient has required multiple when necessary doses of Haldol for aggressive episodes of agitation. He continues to have aggressive behaviors which are unsafe towards medical staff. Patient seems to be doing well on Zyprexa, so we will continue this. Due to concerns for safety to the patient and staff, benefits of Zyprexa outweigh the risks. If aggressive behaviors continue to be absent, patient may be ready for placement next week. -Scheduled Zyprexa 5 mg at bedtime -Continue Seroquel (2) Altered mental status Status: Chronic Problem Text: Alert and cooperative today, although with stable chronic advanced dementia. (3) Hypotension Status: Chronic Response to Treatment: Stable Problem Text: on Midodrine Plan/VTE VTE Prophylaxis Ordered?: Yes (start Lovenox) Disposition Follow-up aggressive behaviors. If these continue to be absent, he may be ready for placement VS, I&O, 24H, Luz Vital Signs/I&O Vital Signs Date Time Temp Pulse Resp B/P (MAP) Pulse Ox O2 Delivery O2 Flow Rate FiO2 01/01/17 06:00 97.0 69 19 147/67 (93) 95 Room Air I&O- Last 24 Hours up to 6 AM 01/01/17 06:00 Intake Total 960 ml Output Total 0 ml Balance 960 ml Laboratory Data CBC/BMP Laboratory Tests 01/01/17 08:19 Red Blood Count 4.42, Mean Corpuscular Volume 93.8, Mean Corpuscular Hemoglobin 31.3, Mean Corpuscular Hemoglobin Concent 33.4, Red Cell Distribution Width 13.2 DAVID FLOREZ MD Jan 01, 2017 13:16
[2017-01-01] MEDS: QUEtiapine FUMARATE 50 MG TAB PO SCH (16:22)
[2017-01-01] MEDS: ATORVASTATIN 10 MG TAB PO SCH (21:09)
[2017-01-01] MEDS: OLANZapine 5 MG TAB PO SCH (21:09)
[2017-01-02 06:00] VITALS: BP 131/87
[2017-01-02] MEDS: LORazepam 0.5 MG TAB PO SCH (08:57)
[2017-01-02] MEDS: DOCUSATE SODIUM 100 MG CAP PO SCH (08:57)
[2017-01-02] MEDS: MEMANTINE 5MG TABLET (NAMENDA) PO SCH (08:57)
[2017-01-02] MEDS: MIRALAX *UNIT DOSE* 17GM PACKET PO SCH (08:58)
[2017-01-02] MEDS: DIVALPROEX 125 MG TAB PO SCH ×3 (08:58→20:23)
[2017-01-02] MEDS: DONEPEZIL 5 MG TAB PO SCH (08:58)
[2017-01-02] MEDS: MIDODRINE 5 MG TAB PO SCH ×3 (08:58→16:28)
[2017-01-02] MEDS: SERTRALINE HCL 50 MG TAB PO SCH (08:58)
[2017-01-02] MEDS: ENOXAPARIN 40 MG/0.4 ML SYRINGE (J1650) SC SCH (08:58)
[2017-01-02] MEDS: QUEtiapine FUMARATE 100 MG TAB PO SCH ×2 (08:58→12:22)
--- NOTE | 2017-01-02 11:56 | IPNPDOC ---
Subjective Date Seen The patient was seen on 01/02/17. Subjective Chief Complaint/HPI The patient is a 86-year-old male admitted with a reason for visit of Dementia With Behavioral Disturbance. Events since last encounter Nursing reports that pt still requiring PRN meds for agitation. Pt denies any new issues. Denies pain, CP, SOB, Abd pain. Constitutional: Denies: Chills, Fever Pulmonary: Denies: Dyspnea Cardiovascular: Denies: Chest Pain Gastrointestinal: Denies: Abdominal Pain Objective Physical Examination General Exam: Positive: Alert, Cooperative, No Acute Distress ENT Exam: Positive: Mucous membr. moist/pink Chest Exam: Positive: Clear to auscultation, Normal air movement Heart Exam: Positive: Rate Normal, Regular Rhythm, Normal S1, Normal S2 Abdomen Exam: Positive: Normal bowel sounds, Soft, Negative: Tenderness Extremity Exam: Negative: Edema Neuro Exam: Positive: Normal Speech Psych Exam: Positive: Oriented x 3 (oriented to person; believes that we are in a parlor and it is 2018) Assessment /Plan Assessment Family Medicine Attending Note: I saw and examined Mr. Reza, discussed with MIKE Izquierdo. Agree with their note as documented. Mr. Reza continues to have occasional outbursts. When I interviewed him he was very calm and pleasant. 20 minutes later I was called because he taken a swing at a nursing staffing coordinator who are watching him. My understanding is that Dr. Fairchild is working on a plan for him, possibly a locked dementia unit capable of holding patient's with behavioral problems near [place], [place]. 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 01/01 - Patient has required multiple when necessary doses of Haldol for aggressive episodes of agitation. He continues to have aggressive behaviors which are unsafe towards medical staff. Patient seems to be doing well on Zyprexa, so we will continue this. Due to concerns for safety to the patient and staff, benefits of Zyprexa outweigh the risks. If aggressive behaviors continue to be absent, patient may be ready for placement next week. -Scheduled Zyprexa 5 mg at bedtime -Continue Seroquel (2) Altered mental status Status: Chronic Problem Text: Alert and cooperative today, although with stable chronic advanced dementia. (3) Hypotension Status: Chronic Response to Treatment: Stable Problem Text: on Midodrine Plan/VTE VTE Prophylaxis Ordered?: Yes (start Lovenox) VS, I&O, 24H, Fishbone Vital Signs/I&O Vital Signs Date Time Temp Pulse Resp B/P (MAP) Pulse Ox O2 Delivery O2 Flow Rate FiO2 01/02/17 06:00 96.9 70 19 131/87 (102) 96 Room Air I&O- Last 24 Hours up to 6 AM 01/02/17 06:00 Intake Total 1460 ml Balance 1460 ml Joseph Rome RPA-C Jan 02, 2017 11:56 Cordell Lewis MD Jan 02, 2017 20:35
[2017-01-02] MEDS: LORazepam 2 MG/ML VIAL (J2060) IM PRN ×2 (13:54→20:22)
[2017-01-02] MEDS: QUEtiapine FUMARATE 50 MG TAB PO SCH (16:28)
[2017-01-02] MEDS: OLANZapine 5 MG TAB PO SCH (20:23)
[2017-01-02] MEDS: ATORVASTATIN 10 MG TAB PO SCH (20:23)
[2017-01-03 06:00] VITALS: BP 103/55
[2017-01-03] MEDS: DOCUSATE SODIUM 100 MG CAP PO SCH (09:09)
[2017-01-03] MEDS: DONEPEZIL 5 MG TAB PO SCH (09:09)
[2017-01-03] MEDS: MIRALAX *UNIT DOSE* 17GM PACKET PO SCH (09:09)
[2017-01-03] MEDS: ENOXAPARIN 40 MG/0.4 ML SYRINGE (J1650) SC SCH (09:09)
[2017-01-03] MEDS: QUEtiapine FUMARATE 100 MG TAB PO SCH (09:09)
[2017-01-03] MEDS: MIDODRINE 5 MG TAB PO SCH ×3 (09:10→16:44)
[2017-01-03] MEDS: SERTRALINE HCL 50 MG TAB PO SCH (09:10)
[2017-01-03] MEDS: DIVALPROEX 125 MG TAB PO SCH ×3 (09:10→20:07)
[2017-01-03] MEDS: LORazepam 0.5 MG TAB PO SCH (09:10)
[2017-01-03] MEDS: MEMANTINE 5MG TABLET (NAMENDA) PO SCH (09:10)
--- NOTE | 2017-01-03 10:48 | IPNPDOC ---
Subjective Date Seen The patient was seen on 01/03/17. Subjective Chief Complaint/HPI The patient is a 86-year-old male admitted with a reason for visit of Dementia With Behavioral Disturbance. Events since last encounter Pt again with outburst and physical aggression yesterday afternoon. He required IM PRN Haldol to calm him down. General: Reports: ROS Unobtainable Objective Physical Examination General Exam: Positive: Alert, Cooperative, No Acute Distress ENT Exam: Positive: Mucous membr. moist/pink Chest Exam: Positive: Clear to auscultation, Normal air movement Heart Exam: Positive: Rate Normal, Regular Rhythm, Normal S1, Normal S2 Abdomen Exam: Positive: Normal bowel sounds, Soft, Negative: Tenderness Extremity Exam: Negative: Edema Neuro Exam: Positive: Normal Speech Psych Exam: Positive: Oriented x 3 (oriented to person; believes that we are in a parlor and it is 2018) Assessment /Plan Problems (1) Dementia with behavioral disturbance Status: Chronic Response to Treatment: Worse Problem Text: 01/03 - Zyprexa was started on 01/01, will increase Seroquel today from 100 mg at 9 and noon, to 150 mg, and from 150 mg in the evening to 200 mg. Cont to titrate and adjust medication to prevent agitation, aggressive behaviors for pt and staff safety without sedating him. 01/02 - Pt still requiring PRN meds for agitation/behavioral disturbances. 01/01 - Patient has required multiple when necessary doses of Haldol for aggressive episodes of agitation. He continues to have aggressive behaviors which are unsafe towards medical staff. Patient seems to be doing well on Zyprexa, so we will continue this. Due to concerns for safety to the patient and staff, benefits of Zyprexa outweigh the risks. If aggressive behaviors continue to be absent, patient may be ready for placement next week. -Scheduled Zyprexa 5 mg at bedtime -Continue Seroquel (2) Altered mental status Status: Chronic Problem Text: Alert and cooperative today, although with stable chronic advanced dementia. (3) Hypotension Status: Chronic Response to Treatment: Stable Problem Text: on Midodrine Plan/VTE VTE Prophylaxis Ordered?: Yes (start Lovenox) Plan Attending note: Patient's aggressive behaviors persist despite multiple medical interventions. Nursing has noted that the patient's gait has worsened on increasing doses of Seroquel. Reviewed latest literature regarding therapy for Alzheimer's-induced aggression and agitation. Best practice indicates maximum of 5 twice a day of Zyprexa has the best chance of effectiveness. Seroquel has much less evidence for affective treatment. Maximum recommended daily dose of Seroquel is 75 twice a day. I will plan on titrating him off of Seroquel, as I am concerned that he is becoming overmedicated. The plan will be to titrate up Zyprexa to the maximum effective dose, and see how he does off of Seroquel. If needed, he could be put back on no more than 75 mg twice daily. Additionally, I question his current treatment with Depakote 3 times a day. He has no history of bipolar depression, and best practice does not indicate this as a standard treatment for Alzheimer's induced aggression or agitation. It may be prudent to discuss other treatment options with neurology. However, no treatment will likely completely correct his behaviors. A memory carrera is likely the best placement option. Johnny Carmona MD VS, I&O, 24H, Fishbone Vital Signs/I&O Vital Signs Date Time Temp Pulse Resp B/P (MAP) Pulse Ox O2 Delivery O2 Flow Rate FiO2 01/03/17 06:00 96.7 65 15 103/55 (71) 95 Room Air I&O- Last 24 Hours up to 6 AM 01/03/17 06:00 Intake Total 0 ml Balance 0 ml TRINI STEEL PA-C Jan 03, 2017 10:48 JOHNNY CARMONA MD Jan 03, 2017 12:31
[2017-01-03] MEDS ORDERED: QUEtiapine FUMARATE 50 MG TAB PO SCH (12:00)
[2017-01-03] MEDS: OLANZapine 2.5MG TABLET PO SCH (12:50)
[2017-01-03] MEDS ORDERED: QUEtiapine FUMARATE 200 MG TAB PO SCH (16:00)
[2017-01-03] MEDS: ATORVASTATIN 10 MG TAB PO SCH (20:06)
[2017-01-03] MEDS: OLANZapine 5 MG TAB PO SCH (20:07)
[2017-01-03] MEDS: QUEtiapine FUMARATE 50 MG TAB PO SCH (20:07)
[2017-01-04 06:00] VITALS: BP 130/68
[2017-01-04 07:12] LABS: MEAN CORPUSCULAR HGB CONC 32.6 g/dl (32.0-36.5); MEAN CORPUSCULAR VOLUME 95.1 fl (80.0-96.0); RED CELL DISTRIBUTION WIDTH 12.9 % (11.5-14.5); WHITE BLOOD COUNT 6.2 K/mm3 (4.0-10.0)
--- NOTE | 2017-01-04 09:04 | IPNPDOC ---
Subjective Date Seen The patient was seen on 01/04/17. Subjective Chief Complaint/HPI The patient is a 86-year-old male admitted with a reason for visit of Dementia With Behavioral Disturbance. Events since last encounter Patient denies any pain. Unfortunately he still had a couple episodes of aggressive behavior in the last 24 hours. Constitutional: Denies: Chills, Fever Pulmonary: Denies: Dyspnea Cardiovascular: Denies: Chest Pain Gastrointestinal: Denies: Abdominal Pain Objective Physical Examination General Exam: Positive: Alert, Cooperative, No Acute Distress ENT Exam: Positive: Mucous membr. moist/pink Chest Exam: Positive: Clear to auscultation, Normal air movement Heart Exam: Positive: Rate Normal, Regular Rhythm, Normal S1, Normal S2 Abdomen Exam: Positive: Normal bowel sounds, Soft, Negative: Tenderness Extremity Exam: Negative: Edema Neuro Exam: Positive: Normal Speech Psych Exam: Positive: Oriented x 3 (oriented to person) Assessment /Plan Problems (1) Dementia with behavioral disturbance Status: Chronic Response to Treatment: Worse Problem Text: 01/04 - Patient's aggressive behaviors persist despite multiple medical interventions. See Dr Carmona's note from 01/03/17. He notes indication for maximum of 5 twice a day of Zyprexa has the best chance of effectiveness, and that Seroquel has much less evidence for affective treatment. Maximum recommended daily dose of Seroquel is 75 twice a day. He has started titrating him off of Seroquel, with plan to titrate up Zyprexa to the maximum effective dose, and see how he does off of Seroquel, with possibility of restarting Seroquel at no more than [address] Carmona also questions his current treatment with Depakote 3 times a day. Consider neurology consult. 01/03 - Zyprexa was started on 01/01, will increase Seroquel today from 100 mg at 9 and noon, to 150 mg, and from 150 mg in the evening to 200 mg. Cont to titrate and adjust medication to prevent agitation, aggressive behaviors for pt and staff safety without sedating him. 01/02 - Pt still requiring PRN meds for agitation/behavioral disturbances. 01/01 - Patient has required multiple when necessary doses of Haldol for aggressive episodes of agitation. He continues to have aggressive behaviors which are unsafe towards medical staff. Patient seems to be doing well on Zyprexa, so we will continue this. Due to concerns for safety to the patient and staff, benefits of Zyprexa outweigh the risks. If aggressive behaviors continue to be absent, patient may be ready for placement next week. -Scheduled Zyprexa 5 mg at bedtime -Continue Seroquel (2) Altered mental status Status: Chronic Problem Text: Alert and cooperative today, although with stable chronic advanced dementia. (3) Hypotension Status: Chronic Response to Treatment: Stable Problem Text: on Midodrine Plan/VTE VTE Prophylaxis Ordered?: Yes (start Lovenox) Plan Family Medicine Attending Note: I saw and examined Mr. Reza, discussed with MIKE Izquierdo. Agree with their note as documented. Mr. Reza continues to have some aggressive behaviors, however nursing also reports that he's been acting a little "drunk" today. We are cross-titrating Zyprexa and olanzapine and this may be part of it. I spoke with Dr. Fairchild regarding the valproic acid. He confirms the patient does not have a history of seizures or bipolar disorder. The valproic acid was used in an attempt to control his aggressive behaviors. I've taken his valproic acid from 3 times a day to twice a day. I ultimately intend to taper him off of this medication, as I am not certain it is benefiting him. 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
[2017-01-04] MEDS: MEMANTINE 5MG TABLET (NAMENDA) PO SCH (09:42)
[2017-01-04] MEDS: DONEPEZIL 5 MG TAB PO SCH (09:42)
[2017-01-04] MEDS: MIRALAX *UNIT DOSE* 17GM PACKET PO SCH (09:42)
[2017-01-04] MEDS: DOCUSATE SODIUM 100 MG CAP PO SCH (09:42)
[2017-01-04] MEDS: DIVALPROEX 125 MG TAB PO SCH ×2 (09:42→15:20)
[2017-01-04] MEDS: OLANZapine 2.5MG TABLET PO SCH (09:43)
[2017-01-04] MEDS: MIDODRINE 5 MG TAB PO SCH ×3 (09:43→15:20)
[2017-01-04] MEDS: QUEtiapine FUMARATE 50 MG TAB PO SCH ×2 (09:43→19:44)
[2017-01-04] MEDS: ENOXAPARIN 40 MG/0.4 ML SYRINGE (J1650) SC SCH (09:43)
[2017-01-04] MEDS: LORazepam 0.5 MG TAB PO SCH (09:43)
[2017-01-04] MEDS: ATORVASTATIN 10 MG TAB PO SCH (19:45)
[2017-01-04] MEDS: OLANZapine 5 MG TAB PO SCH (19:45)
[2017-01-05 06:00] VITALS: BP 129/66
[2017-01-05] MEDS: MIRALAX *UNIT DOSE* 17GM PACKET PO SCH (09:42)
[2017-01-05] MEDS: DIVALPROEX 125 MG TAB PO SCH ×2 (09:42→20:17)
[2017-01-05] MEDS: DOCUSATE SODIUM 100 MG CAP PO SCH (09:43)
[2017-01-05] MEDS: MIDODRINE 5 MG TAB PO SCH ×3 (09:43→17:11)
[2017-01-05] MEDS: MEMANTINE 5MG TABLET (NAMENDA) PO SCH (09:43)
[2017-01-05] MEDS: OLANZapine 2.5MG TABLET PO SCH (09:43)
[2017-01-05] MEDS: LORazepam 0.5 MG TAB PO SCH (09:43)
[2017-01-05] MEDS: QUEtiapine FUMARATE 50 MG TAB PO SCH (09:43)
[2017-01-05] MEDS: DONEPEZIL 5 MG TAB PO SCH (09:43)
[2017-01-05] MEDS: ENOXAPARIN 40 MG/0.4 ML SYRINGE (J1650) SC SCH (09:44)
--- NOTE | 2017-01-05 10:59 | IPNPDOC ---
Subjective Date Seen The patient was seen on 01/05/17. Subjective Chief Complaint/HPI The patient is a 86-year-old male admitted with a reason for visit of Dementia With Behavioral Disturbance. Events since last encounter His behavior seem a little bit calmer today, but nursing reports that he was "not a good boy last night." One reports that he "almost cold cocked me." These delirious/aggressive episodes remain quite intermittent and unpredictable. Pt denies pain, CP, Abd pain, SOB. Constitutional: Denies: Fever Pulmonary: Denies: Dyspnea Cardiovascular: Denies: Chest Pain Gastrointestinal: Denies: Abdominal Pain Objective Physical Examination General Exam: Positive: Alert, Cooperative, No Acute Distress ENT Exam: Positive: Mucous membr. moist/pink Chest Exam: Positive: Clear to auscultation, Normal air movement Heart Exam: Positive: Rate Normal, Regular Rhythm, Normal S1, Normal S2 Abdomen Exam: Positive: Normal bowel sounds, Soft, Negative: Tenderness Extremity Exam: Negative: Edema Neuro Exam: Positive: Normal Speech Psych Exam: Positive: Oriented x 3 (oriented to person only) Assessment /Plan Problems (1) Dementia with behavioral disturbance Status: Chronic Response to Treatment: Worse Problem Text: 01/05 - Patient's aggressive behaviors persist despite multiple medical interventions. We are still cross titrating Zyprexa and Seroquel. We have also started down titrating the valproic acid with a goal of taking this off by the end of the weekend. Communication with Dr. Leslie brought out the question as to whether we should get psychiatry involved for assistance with managing his aggressive symptoms. 01/04 - Patient's aggressive behaviors persist despite multiple medical interventions. See Dr Carmona's note from 01/03/17. He notes indication for maximum of 5 twice a day of Zyprexa has the best chance of effectiveness, and that Seroquel has much less evidence for affective treatment. Maximum recommended daily dose of Seroquel is 75 twice a day. He has started titrating him off of Seroquel, with plan to titrate up Zyprexa to the maximum effective dose, and see how he does off of Seroquel, with possibility of restarting Seroquel at no more than [address] Carmona also questions his current treatment with Depakote 3 times a day. Consider neurology consult. 01/03 - Zyprexa was started on 01/01, will increase Seroquel today from 100 mg at 9 and noon, to 150 mg, and from 150 mg in the evening to 200 mg. Cont to titrate and adjust medication to prevent agitation, aggressive behaviors for pt and staff safety without sedating him. 01/02 - Pt still requiring PRN meds for agitation/behavioral disturbances. 01/01 - Patient has required multiple when necessary doses of Haldol for aggressive episodes of agitation. He continues to have aggressive behaviors which are unsafe towards medical staff. Patient seems to be doing well on Zyprexa, so we will continue this. Due to concerns for safety to the patient and staff, benefits of Zyprexa outweigh the risks. If aggressive behaviors continue to be absent, patient may be ready for placement next week. -Scheduled Zyprexa 5 mg at bedtime -Continue Seroquel (2) Altered mental status Status: Chronic Problem Text: Alert and cooperative today, although with stable chronic advanced dementia. (3) Hypotension Status: Chronic Response to Treatment: Stable Problem Text: on Midodrine Plan/VTE VTE Prophylaxis Ordered?: Yes (start Lovenox) Plan Family Medicine Attending Note: I saw and examined Mr. Reza, discussed with MIKE Izquierdo. Agree with their note as documented. Is to [place] his symptoms persist despite our best efforts thus far. We have a plan to modify his regimen that should be fully modified by the end of this weekend. Hopefully that will bear fruit. If it does not I believe we should engage psychiatry early next week to see what can be done. 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
[2017-01-05 11:45] VITALS: BP 123/84
[2017-01-05] MEDS: ATORVASTATIN 10 MG TAB PO SCH (20:17)
[2017-01-05] MEDS: QUEtiapine FUMARATE 25 MG TAB PO SCH (20:17)
[2017-01-05] MEDS: OLANZapine 5 MG TAB PO SCH (20:18)
[2017-01-05] MEDS: LORazepam 2 MG/ML VIAL (J2060) IV PRN (22:26)
[2017-01-06 06:00] VITALS: BP 124/68
[2017-01-06] MEDS: LORazepam 0.5 MG TAB PO SCH (08:34)
[2017-01-06] MEDS: OLANZapine 5 MG TAB PO SCH ×2 (08:34→16:35)
[2017-01-06] MEDS: ENOXAPARIN 40 MG/0.4 ML SYRINGE (J1650) SC SCH (08:34)
[2017-01-06] MEDS: QUEtiapine FUMARATE 25 MG TAB PO SCH ×2 (08:34→21:00)
[2017-01-06] MEDS: MIRALAX *UNIT DOSE* 17GM PACKET PO SCH (08:35)
[2017-01-06] MEDS: DOCUSATE SODIUM 100 MG CAP PO SCH (08:35)
[2017-01-06] MEDS: DIVALPROEX 125 MG TAB PO SCH ×2 (08:35→21:00)
[2017-01-06] MEDS: MIDODRINE 5 MG TAB PO SCH ×3 (08:35→16:35)
[2017-01-06] MEDS: DONEPEZIL 5 MG TAB PO SCH (08:35)
[2017-01-06] MEDS: MEMANTINE 5MG TABLET (NAMENDA) PO SCH (08:35)
[2017-01-06] MEDS ORDERED: OLANZapine 5 MG TAB PO SCH (09:00)
--- NOTE | 2017-01-06 12:20 | IPNPDOC ---
Subjective Date Seen The patient was seen on 01/06/17. Subjective Chief Complaint/HPI The patient is a 86-year-old male admitted with a reason for visit of Dementia With Behavioral Disturbance. Events since last encounter Ed has been essentially unchanged in the last 24 hours. Nursing reports that since we have been cross titrating Zyprexa and Seroquel they noticed that his gait has become more shuffling and less steady. They're concerned that he safety might be negatively impacted by the medication change. General: Reports: ROS Unobtainable (secondary to advanced dementia) Objective Physical Examination General Exam: Positive: Alert, No Acute Distress, Other (shortly after the episode where he was pushing me in order to leave his room we sat down and had a pleasant conversation. 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 moist/pink Chest Exam: Positive: Clear to auscultation, Normal air movement Heart Exam: Positive: Rate Normal, Regular Rhythm, Normal S1, Normal S2 Abdomen Exam: Positive: Normal bowel sounds, Soft, Negative: Tenderness Extremity Exam: Negative: Edema Neuro Exam: Positive: Normal Speech, Strength at 5/5 X4 ext, Negative: Normal Gait (his gait is a little more shuffling and he focuses on looking at his feet more in the last several days) Psych Exam: Positive: Oriented x 3 (oriented to person only), Negative: Memory Intact Assessment /Plan Problems (1) Dementia with behavioral disturbance Status: Chronic Response to Treatment: Worse Problem Text: 01/06 - given nurses concerned about over sedation/medication as we crossed straight titrate his antipsychotics I decided to discontinue the Seroquel today. Starting tomorrow he'll only be on Zyprexa. He will still be weaned off the Depakote through Monday evening. We'll need to monitor carefully. It is very possible that Zyprexa will not be a good medication for him, but I think we need to give it a real try before we decide that this was a medication failure. 01/05 - Patient's aggressive behaviors persist despite multiple medical interventions. We are still cross titrating Zyprexa and Seroquel. We have also started down titrating the valproic acid with a goal of taking this off by the end of the weekend. Communication with Dr. Leslie brought out the question as to whether we should get psychiatry involved for assistance with managing his aggressive symptoms. 01/04 - Patient's aggressive behaviors persist despite multiple medical interventions. See Dr Carmona's note from 01/03/17. He notes indication for maximum of 5 twice a day of Zyprexa has the best chance of effectiveness, and that Seroquel has much less evidence for affective treatment. Maximum recommended daily dose of Seroquel is 75 twice a day. He has started titrating him off of Seroquel, with plan to titrate up Zyprexa to the maximum effective dose, and see how he does off of Seroquel, with possibility of restarting Seroquel at no more than [address] Carmona also questions his current treatment with Depakote 3 times a day. Consider neurology consult. 01/03 - Zyprexa was started on 01/01, will increase Seroquel today from 100 mg at 9 and noon, to 150 mg, and from 150 mg in the evening to 200 mg. Cont to titrate and adjust medication to prevent agitation, aggressive behaviors for pt and staff safety without sedating him. 01/02 - Pt still requiring PRN meds for agitation/behavioral disturbances. 01/01 - Patient has required multiple when necessary doses of Haldol for aggressive episodes of agitation. He continues to have aggressive behaviors which are unsafe towards medical staff. Patient seems to be doing well on Zyprexa, so we will continue this. Due to concerns for safety to the patient and staff, benefits of Zyprexa outweigh the risks. If aggressive behaviors continue to be absent, patient may be ready for placement next week. -Scheduled Zyprexa 5 mg at bedtime -Continue Seroquel (2) Altered mental status Status: Chronic Problem Text: Alert and intermittently uncooperative and aggressive today; with stable chronic advanced dementia. (3) Hypotension Status: Chronic Response to Treatment: Stable Problem Text: on Midodrine Plan/VTE VTE Prophylaxis Ordered?: Yes (start Lovenox) VS, I&O, 24H, Fishbone Vital Signs/I&O Vital Signs Date Time Temp Pulse Resp B/P (MAP) Pulse Ox O2 Delivery O2 Flow Rate FiO2 01/06/17 10:52 Room Air 01/06/17 06:00 97.2 71 17 124/68 (70) 95 I&O- Last 24 Hours up to 6 AM 01/06/17 05:59 Intake Total 870 ml Output Total 0 ml Balance 870 ml Cordell Lewis MD Jan 06, 2017 12:20
[2017-01-06] MEDS: LORazepam 2 MG/ML VIAL (J2060) IV PRN (13:21)
[2017-01-06] MEDS: LORazepam 2 MG/ML VIAL (J2060) IM PRN (19:00)
[2017-01-06] MEDS: ATORVASTATIN 10 MG TAB PO SCH (21:00)
[2017-01-07 06:00] VITALS: BP 152/81
[2017-01-07] MEDS: DOCUSATE SODIUM 100 MG CAP PO SCH (08:55)
[2017-01-07] MEDS: LORazepam 0.5 MG TAB PO SCH (08:55)
[2017-01-07] MEDS: DIVALPROEX 125 MG TAB PO SCH (08:55)
[2017-01-07] MEDS: MIDODRINE 5 MG TAB PO SCH ×3 (08:55→16:00)
[2017-01-07] MEDS: ENOXAPARIN 40 MG/0.4 ML SYRINGE (J1650) SC SCH (08:56)
[2017-01-07] MEDS: DONEPEZIL 5 MG TAB PO SCH (08:56)
[2017-01-07] MEDS: OLANZapine 5 MG TAB PO SCH ×2 (08:56→16:23)
[2017-01-07] MEDS: MEMANTINE 5MG TABLET (NAMENDA) PO SCH (08:56)
[2017-01-07] MEDS: MIRALAX *UNIT DOSE* 17GM PACKET PO SCH (08:56)
--- NOTE | 2017-01-07 15:55 | IPNPDOC ---
Subjective Date Seen The patient was seen on 01/07/17. Subjective Chief Complaint/HPI The patient is a 86-year-old male admitted with a reason for visit of Dementia With Behavioral Disturbance. Constitutional: Denies: Fever, Night Sweats, Fatigue ENT: Denies: Head Aches Pulmonary: Denies: Dyspnea, Cough Cardiovascular: Denies: Chest Pain Gastrointestinal: Denies: Nausea, Vomiting, Abdominal Pain Objective Physical Examination General Exam: Positive: Alert, No Acute Distress, Other (sitting with spouse, no complaints and pleasant), Negative: Cooperative (today he wanted to leave his room and began to get physically aggressive with me in order to do so.) ENT Exam: Positive: Mucous membr. moist/pink Chest Exam: Positive: Clear to auscultation, Normal air movement Heart Exam: Positive: Rate Normal, Regular Rhythm, Normal S1, Normal S2 Abdomen Exam: Positive: Normal bowel sounds, Soft, Negative: Tenderness Extremity Exam: Negative: Edema Neuro Exam: Positive: Normal Speech, Strength at 5/5 X4 ext, Other (gait unsteady. sitter present to reduce fall risk), Negative: Normal Gait (his gait is a little more shuffling and he focuses on looking at his feet more in the last several days) Psych Exam: Positive: Oriented x 3 (oriented to person only), Negative: Memory Intact Assessment /Plan Problems (1) Dementia with behavioral disturbance Status: Chronic Response to Treatment: Worse Problem Text: 01/06 - given nurses concerned about over sedation/medication as we crossed straight titrate his antipsychotics I decided to discontinue the Seroquel today. Starting tomorrow he'll only be on Zyprexa. He will still be weaned off the Depakote through Monday evening. We'll need to monitor carefully. It is very possible that Zyprexa will not be a good medication for him, but I think we need to give it a real try before we decide that this was a medication failure. 01/05 - Patient's aggressive behaviors persist despite multiple medical interventions. We are still cross titrating Zyprexa and Seroquel. We have also started down titrating the valproic acid with a goal of taking this off by the end of the weekend. Communication with Dr. Leslie brought out the question as to whether we should get psychiatry involved for assistance with managing his aggressive symptoms. 01/04 - Patient's aggressive behaviors persist despite multiple medical interventions. See Dr Carmona's note from 01/03/17. He notes indication for maximum of 5 twice a day of Zyprexa has the best chance of effectiveness, and that Seroquel has much less evidence for affective treatment. Maximum recommended daily dose of Seroquel is 75 twice a day. He has started titrating him off of Seroquel, with plan to titrate up Zyprexa to the maximum effective dose, and see how he does off of Seroquel, with possibility of restarting Seroquel at no more than [address] Carmona also questions his current treatment with Depakote 3 times a day. Consider neurology consult. 01/03 - Zyprexa was started on 01/01, will increase Seroquel today from 100 mg at 9 and noon, to 150 mg, and from 150 mg in the evening to 200 mg. Cont to titrate and adjust medication to prevent agitation, aggressive behaviors for pt and staff safety without sedating him. 01/02 - Pt still requiring PRN meds for agitation/behavioral disturbances. 01/01 - Patient has required multiple when necessary doses of Haldol for aggressive episodes of agitation. He continues to have aggressive behaviors which are unsafe towards medical staff. Patient seems to be doing well on Zyprexa, so we will continue this. Due to concerns for safety to the patient and staff, benefits of Zyprexa outweigh the risks. If aggressive behaviors continue to be absent, patient may be ready for placement next week. -Scheduled Zyprexa 5 mg at bedtime -Continue Seroquel (2) Altered mental status Status: Chronic Problem Text: Alert and intermittently uncooperative and aggressive today; with stable chronic advanced dementia. (3) Hypotension Status: Chronic Response to Treatment: Stable Problem Text: on Midodrine Plan/VTE VTE Prophylaxis Ordered?: Yes (start Lovenox) VS, I&O, 24H, Fishbone Vital Signs/I&O Vital Signs Date Time Temp Pulse Resp B/P (MAP) Pulse Ox O2 Delivery O2 Flow Rate FiO2 01/07/17 06:00 96.7 66 18 152/81 (104) 97 Room Air I&O- Last 24 Hours up to 6 AM 01/07/17 06:00 Intake Total 1080 ml Output Total 0 ml Balance 1080 ml Issa Rushing MD Jan 07, 2017 15:55
[2017-01-07] MEDS: LORazepam 0.5 MG TAB PO PRN (16:23)
[2017-01-07] MEDS: LORazepam 2 MG/ML VIAL (J2060) IM PRN (20:14)
[2017-01-07] MEDS: ATORVASTATIN 10 MG TAB PO SCH (21:00)
[2017-01-08 06:00] VITALS: BP 130/60
[2017-01-08] MEDS: DIVALPROEX 125 MG TAB PO SCH (08:39)
[2017-01-08] MEDS: ENOXAPARIN 40 MG/0.4 ML SYRINGE (J1650) SC SCH (08:39)
[2017-01-08] MEDS: MEMANTINE 5MG TABLET (NAMENDA) PO SCH (08:39)
[2017-01-08] MEDS: MIRALAX *UNIT DOSE* 17GM PACKET PO SCH (08:39)
[2017-01-08] MEDS: DOCUSATE SODIUM 100 MG CAP PO SCH (08:40)
[2017-01-08] MEDS: DONEPEZIL 5 MG TAB PO SCH (08:40)
[2017-01-08] MEDS: OLANZapine 5 MG TAB PO SCH ×2 (08:40→16:03)
[2017-01-08] MEDS: MIDODRINE 5 MG TAB PO SCH ×3 (08:40→16:03)
[2017-01-08] MEDS: LORazepam 0.5 MG TAB PO SCH (08:40)
[2017-01-08] MEDS: LORazepam 0.5 MG TAB PO PRN (11:16)
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
[2017-01-08] MEDS: LORazepam 2 MG/ML VIAL (J2060) IM PRN ×2 (15:53→20:31)
[2017-01-08] MEDS: ATORVASTATIN 10 MG TAB PO SCH (20:30)
[2017-01-08] MEDS: ACETAMINOPHEN TAB 650MG DOSE (2X325MG) PO PRN (22:17)
[2017-01-09 06:00] VITALS: BP 136/80
[2017-01-09] MEDS: MIDODRINE 5 MG TAB PO SCH ×3 (09:35→16:23)
[2017-01-09] MEDS: OLANZapine 5 MG TAB PO SCH ×2 (09:35→16:23)
[2017-01-09] MEDS: MIRALAX *UNIT DOSE* 17GM PACKET PO SCH (09:35)
[2017-01-09] MEDS: DONEPEZIL 5 MG TAB PO SCH (09:35)
[2017-01-09] MEDS: ENOXAPARIN 40 MG/0.4 ML SYRINGE (J1650) SC SCH (09:36)
[2017-01-09] MEDS: DOCUSATE SODIUM 100 MG CAP PO SCH (09:36)
[2017-01-09] MEDS: MEMANTINE 5MG TABLET (NAMENDA) PO SCH (09:36)
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
[2017-01-09] MEDS: LORazepam 0.5 MG TAB PO PRN ×3 (12:51→20:42)
[2017-01-09] MEDS: ATORVASTATIN 10 MG TAB PO SCH (20:42)
[2017-01-09] MEDS: LORazepam 2 MG/ML VIAL (J2060) IM PRN (22:19)
[2017-01-09] MEDS: ACETAMINOPHEN TAB 650MG DOSE (2X325MG) PO PRN (23:53)
[2017-01-10] MEDS: LORazepam 0.5 MG TAB PO PRN ×3 (03:11→20:01)
[2017-01-10 06:00] VITALS: BP 153/75
[2017-01-10] MEDS: DOCUSATE SODIUM 100 MG CAP PO SCH (09:16)
[2017-01-10] MEDS: DONEPEZIL 5 MG TAB PO SCH (09:16)
[2017-01-10] MEDS: MIDODRINE 5 MG TAB PO SCH ×3 (09:16→17:22)
[2017-01-10] MEDS: ENOXAPARIN 40 MG/0.4 ML SYRINGE (J1650) SC SCH (09:16)
[2017-01-10] MEDS: MEMANTINE 5MG TABLET (NAMENDA) PO SCH (09:16)
[2017-01-10] MEDS: MIRALAX *UNIT DOSE* 17GM PACKET PO SCH (09:16)
[2017-01-10] MEDS: OLANZapine 5 MG TAB PO SCH ×2 (09:16→17:22)
[2017-01-10 13:30] VITALS: BP 138/80
--- NOTE | 2017-01-10 16:09 | REP ---
HISTORY: Pain after falling. The patient was unable to flex the knee in order to obtain a sunrise view. There are no priors for comparison. FINDINGS: The compartments are symmetric and relatively well maintained. There is no acute fracture or destructive osseous lesion. Signed by Diego Peña DO 01/10/2017 04:37 P
[2017-01-10] MEDS: ATORVASTATIN 10 MG TAB PO SCH (20:01)
[2017-01-11] MEDS: LORazepam 0.5 MG TAB PO PRN ×3 (00:33→13:47)
[2017-01-11] MEDS: ACETAMINOPHEN TAB 650MG DOSE (2X325MG) PO PRN (02:33)
[2017-01-11] MEDS: LORazepam 2 MG/ML VIAL (J2060) IM PRN (05:37)
[2017-01-11 06:00] VITALS: BP 174/98
[2017-01-11] MEDS ORDERED: risperiDONE 2 MG TAB PO SCH (09:00)
[2017-01-11] MEDS: MIRALAX *UNIT DOSE* 17GM PACKET PO SCH (09:00)
[2017-01-11] MEDS: DONEPEZIL 5 MG TAB PO SCH (09:00)
[2017-01-11] MEDS: MIDODRINE 5 MG TAB PO SCH ×3 (09:00→17:50)
[2017-01-11] MEDS: ENOXAPARIN 40 MG/0.4 ML SYRINGE (J1650) SC SCH (09:01)
[2017-01-11] MEDS: MEMANTINE 5MG TABLET (NAMENDA) PO SCH (09:01)
[2017-01-11] MEDS: DOCUSATE SODIUM 100 MG CAP PO SCH (09:01)
[2017-01-11] MEDS: OLANZapine 5 MG TAB PO SCH ×2 (09:01→17:50)
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
[2017-01-11] MEDS: risperiDONE 2 MG TAB PO SCH (17:50)
[2017-01-11] MEDS: ATORVASTATIN 10 MG TAB PO SCH (20:07)
[2017-01-12] MEDS: LORazepam 0.5 MG TAB PO PRN ×3 (01:16→21:17)
[2017-01-12] MEDS: ACETAMINOPHEN TAB 650MG DOSE (2X325MG) PO PRN ×2 (01:16→21:17)
[2017-01-12 06:00] VITALS: BP 121/74
[2017-01-12] MEDS: MIRALAX *UNIT DOSE* 17GM PACKET PO SCH (09:12)
[2017-01-12] MEDS: MEMANTINE 5MG TABLET (NAMENDA) PO SCH (09:13)
[2017-01-12] MEDS: OLANZapine 5 MG TAB PO SCH ×2 (09:13→16:50)
[2017-01-12] MEDS: DONEPEZIL 5 MG TAB PO SCH (09:13)
[2017-01-12] MEDS: MIDODRINE 5 MG TAB PO SCH ×3 (09:13→16:51)
[2017-01-12] MEDS: ENOXAPARIN 40 MG/0.4 ML SYRINGE (J1650) SC SCH (09:13)
[2017-01-12] MEDS: DOCUSATE SODIUM 100 MG CAP PO SCH (09:14)
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
[2017-01-12] MEDS: risperiDONE 2 MG TAB PO SCH (16:50)
[2017-01-12] MEDS: ATORVASTATIN 10 MG TAB PO SCH (21:17)
[2017-01-13] MEDS: LORazepam 2 MG/ML VIAL (J2060) IM PRN (00:32)
[2017-01-13 06:00] VITALS: BP 125/71
--- NOTE | 2017-01-13 06:32 | CR ---
DATE OF CONSULTATION: 01/12/2017 CURRENT MEDICATIONS: - Risperdal 2 mg by mouth daily at 5 p.m. - Zyprexa 5 mg by mouth twice a day - Ativan 0.5 mg every 2 hours by mouth as needed - Ativan 1 mg every 4 hours intramuscularly (IM) as needed for agitation CHIEF COMPLAINT: Evaluation of aggressive and violent behavior. HISTORY OF PRESENT ILLNESS: Patient is seen today and interviewed. His nurse is interviewed, as well as the nurse volunteer services manager, Fannie, who provides further background information on the patient's history and treatment here on the unit. The patient did receive his Risperdal last night for the first dose. It appears as if he tolerated it well. Staff reports that perhaps his behavior improved to some degree. However, around midnight his agitation and violent behavior returned for a period of time after which the patient did fall asleep. This morning, the patient tried to defecate out in the corridor pulling down his pants and had to be redirected by staff. Patient became agitated at the time. Multiple staff members were required to bring him back to his room after which he received another dose of Ativan with good effect. The patient is alert today. I saw him. I was able to interview him. His is not in today, but the dimension specification inspector knows him well historically and provides some background information, which is helpful. MENTAL STATUS EXAMINATION: The patient appears alert today. He is still quite disoriented, however. He is not able to give me his age, but is able to give me his year as 1931. He is not oriented to place. He describes his location as being a grocery store when given a number of options. He is not aware of today's date and often nonresponsive to my questions. The patient's style here today is pleasant. He is not agitated. His mood appears reasonably good. He is not depressed. No signs of paranoia. He certainly is not manic. Insight and judgment remain quite impaired, however. Not voicing any paranoid beliefs. Memory function is quite impaired, consistent with a dementia process. Patient is impulsive and quite unpredictable placing staff members at risk. DIAGNOSIS: Dementia with behavioral disturbance. PLAN: Continue current treatment plan of Risperdal at this dosage. Hopefully, with time, the patient will respond to the therapeutic benefit to eliminate his sundowning, agitated behavior and to normalize his sleep/wake patterns. No change in the Zyprexa twice a day schedule for the time being until the patient's condition stabilizes. Patient is not appropriate for an inpatient psychiatric unit, but I will be providing close contact and monitoring regarding his psychotropic medication.
[2017-01-13] MEDS: MEMANTINE 5MG TABLET (NAMENDA) PO SCH (08:13)
[2017-01-13] MEDS: DONEPEZIL 5 MG TAB PO SCH (08:13)
[2017-01-13] MEDS: LORazepam 0.5 MG TAB PO PRN ×4 (08:13→20:47)
[2017-01-13] MEDS: MIDODRINE 5 MG TAB PO SCH ×3 (08:14→16:12)
[2017-01-13] MEDS: MIRALAX *UNIT DOSE* 17GM PACKET PO SCH (08:14)
[2017-01-13] MEDS: DOCUSATE SODIUM 100 MG CAP PO SCH (08:14)
[2017-01-13] MEDS: ENOXAPARIN 40 MG/0.4 ML SYRINGE (J1650) SC SCH (09:00)
[2017-01-13 09:52] LABS: BASO % 0.8 % (0.0-1.0); EOS # 0.2 K/mm3 (0.0-0.50); EOS % 3.1 % (0.0-3.0); LARGE UNSTAINED CELL # 0.2 K/mm3 (0.0-0.4); LYMPH # 1.3 K/mm3 (1.5-4.5); LYMPH % 19.1 % (24.0-44.0); MEAN CORPUSCULAR HEMOGLOBIN 30.8 pg (27.0-33.0); MEAN CORPUSCULAR HGB CONC 33.4 g/dl (32.0-36.5); MEAN CORPUSCULAR VOLUME 92.3 fl (80.0-96.0); MONO # 0.6 K/mm3 (0.0-0.8); MONO % 9.9 % (0.0-5.0); NEUTROPHILS # 3.6 K/mm3 (1.8-7.7); NEUTROPHILS % 64.2 % (36.0-66.0); PLATELET COUNT, AUTOMATED 189 k/mm3 (150-450); RED CELL DISTRIBUTION WIDTH 13.2 % (11.5-14.5); WHITE BLOOD COUNT 5.7 K/mm3 (4.0-10.0)
[2017-01-13 10:21] LABS: ALBUMIN 3.5 GM/DL (3.2-5.2); ALBUMIN/GLOBULIN RATIO 1.06 (1.00-1.93); ALKALINE PHOSPHATASE 74 U/L (45-117); ALT/SGPT 34 U/L (12-78); ANION GAP 3 MEQ/L (8-16); AST/SGOT 23 U/L (15-37); BILIRUBIN,TOTAL 0.3 MG/DL (0.2-1.0); BLOOD UREA NITROGEN 19 MG/DL (7-18); CALCIUM LEVEL 9.2 MG/DL (8.8-10.2); CARBON DIOXIDE LEVEL 31 MEQ/L (21-32); CHLORIDE LEVEL 109 MEQ/L (98-107); GLOMERULAR FILTRATION RATE > 60.0 (>35); GLUCOSE, FASTING 76 MG/DL (83-110); POTASSIUM SERUM 4.2 MEQ/L (3.5-5.1); SODIUM LEVEL 143 MEQ/L (136-145); TOTAL PROTEIN 6.8 GM/DL (6.4-8.2)
--- NOTE | 2017-01-13 10:47 | REP ---
Chest two views HISTORY: Admission Comparison: 09/29/2016 The lungs are clear. The heart is normal in size. The pulmonary vasculature is normal in appearance. There is an old compression fracture of an upper thoracic vertebral body. IMPRESSION: No acute disease. Signed by Skyler Luong MD 01/13/2017 10:39 A
[2017-01-13] MEDS: OLANZapine 5 MG TAB PO SCH (16:12)
[2017-01-13] MEDS: risperiDONE 2 MG TAB PO SCH (16:12)
--- NOTE | 2017-01-13 17:06 | ECGEPIP ---
Stationary ECG Study [facility] Test Date: 2017-01-13 Pat Name: NADIRA HORAN Department: Room: [place] [address] Gender: M Car Porter: : 1930 Requested By: JAKE Reeder Order Number: [id number] Reading MD: Roman Garcia Measurements Intervals [place] Rate: 86 P: 75 RI: 147 QRS: -33 QRSD: 82 T: 42 QT: 370 QTc: 443 Interpretive Statements SINUS RHYTHM MARKED LEFT AXIS DEVIATION LEFT ANTERIOR HEMIBLOCK PROMINENT R WAVE IN V1 AND V2 - RULE OUT Right ventricular hypertrophy VERSUS PRIOR PWMI NO CHANGE FROM 12/22/16 Electronically Signed On 01-13-2017 17:05:47 EDT by Roman Garcia
[2017-01-13] MEDS: ATORVASTATIN 10 MG TAB PO SCH (20:47)
[2017-01-13] MEDS: ACETAMINOPHEN TAB 650MG DOSE (2X325MG) PO PRN (20:50)
[2017-01-14] MEDS: LORazepam 0.5 MG TAB PO PRN ×4 (00:37→23:24)
--- NOTE | 2017-01-14 04:07 | CR ---
DATE OF CONSULTATION: 01/13/2017 CURRENT MEDICATIONS: - Risperdal 2 mg by mouth daily at 5 p.m. - Zyprexa 5 mg by mouth daily at 5 p.m. - Ativan as needed CHIEF COMPLAINT: Aggression. HISTORY OF PRESENT ILLNESS: The patient is seen today and his is interviewed who provides further background information. His states that he was always good natured and never swore. His violent behavior is quite out of character for him. The patient apparently had been depressed for several years prior to coming into the snf. He would frequently report that he wanted to . Patient was placed on an antidepressant. Patient was on Zoloft at home prior to coming into the hospital at a dose of 50 mg per day. 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 Patient's morning dose of Zyprexa was just discontinued. Patient appears to be tolerating the oral Risperdal well. He shows no signs of parkinsonian side effects from it. Nursing staff reports that he was up most of last night. He was agitated this morning requiring an as needed dose of Ativan. The risk of cardiovascular events on antipsychotics with dementia patients is reviewed with his , Vicki. In her opinion, the benefits outweigh any risks. She wants him to be in a safe environment, but also does not want the staff to be injured by his violent behavior. MENTAL STATUS EXAMINATION: Patient is relatively alert today. He is sitting quietly next to his in his room. He does get restless at times, however, wanting to stand up and walk around the room. He is escorted back to his seat multiple times by the sitter. Memory functions remain impaired. Patient does appear somewhat sedated from his recent dose of Ativan. He shows no parkinsonian side effects from the antipsychotics. No overt signs of psychosis. No overt signs of affective disorder. Patient remains impulsive and unpredictable. Patient's speech is rambling, disjointed and typically nonresponsive to my questions. DIAGNOSIS: Dementia with behavioral disturbance. PLAN: Recommending increase Risperdal to 3 mg daily at 5 p.m. One other option to consider is adding low dose citalopram 10 mg daily. The literature shows that dementia patients can be responsive to selective serotonin reuptake inhibitor (SSRI) such as citalopram for the treatment of behavioral outbursts even in the absence of overt affective depressive illness. Patient will be monitored closely.
[2017-01-14 06:00] VITALS: BP 132/83
[2017-01-14] MEDS: ENOXAPARIN 40 MG/0.4 ML SYRINGE (J1650) SC SCH (09:00)
[2017-01-14] MEDS: DOCUSATE SODIUM 100 MG CAP PO SCH (09:39)
[2017-01-14] MEDS: DONEPEZIL 5 MG TAB PO SCH (09:39)
[2017-01-14] MEDS: MIDODRINE 5 MG TAB PO SCH ×3 (09:39→16:41)
[2017-01-14] MEDS: MEMANTINE 5MG TABLET (NAMENDA) PO SCH (09:39)
[2017-01-14] MEDS: MIRALAX *UNIT DOSE* 17GM PACKET PO SCH (09:39)
[2017-01-14] MEDS: OLANZapine 5 MG TAB PO SCH (16:41)
[2017-01-14] MEDS: risperiDONE 2 MG TAB PO SCH (16:42)
[2017-01-14] MEDS: ATORVASTATIN 10 MG TAB PO SCH (20:00)
[2017-01-15] MEDS: ACETAMINOPHEN TAB 650MG DOSE (2X325MG) PO PRN ×2 (00:50→20:22)
[2017-01-15 06:00] VITALS: BP 148/70
[2017-01-15] MEDS: DOCUSATE SODIUM 100 MG CAP PO SCH (08:16)
[2017-01-15] MEDS: DONEPEZIL 5 MG TAB PO SCH (08:16)
[2017-01-15] MEDS: MIRALAX *UNIT DOSE* 17GM PACKET PO SCH (08:16)
[2017-01-15] MEDS: MIDODRINE 5 MG TAB PO SCH ×3 (08:16→16:21)
[2017-01-15] MEDS: MEMANTINE 5MG TABLET (NAMENDA) PO SCH (08:16)
[2017-01-15] MEDS: ENOXAPARIN 40 MG/0.4 ML SYRINGE (J1650) SC SCH ×2 (08:17→09:00)
[2017-01-15] MEDS: risperiDONE 2 MG TAB PO SCH (16:21)
[2017-01-15] MEDS: OLANZapine 5 MG TAB PO SCH (16:22)
[2017-01-15] MEDS: LORazepam 0.5 MG TAB PO PRN (16:27)
[2017-01-15] MEDS: ATORVASTATIN 10 MG TAB PO SCH (20:22)
[2017-01-16 06:46] VITALS: BP 131/64
[2017-01-16] MEDS: DOCUSATE SODIUM 100 MG CAP PO SCH ×2 (09:00→10:00)
[2017-01-16] MEDS: DONEPEZIL 5 MG TAB PO SCH (10:00)
[2017-01-16] MEDS: ENOXAPARIN 40 MG/0.4 ML SYRINGE (J1650) SC SCH (10:01)
[2017-01-16] MEDS: MEMANTINE 5MG TABLET (NAMENDA) PO SCH (10:01)
[2017-01-16] MEDS: MIRALAX *UNIT DOSE* 17GM PACKET PO SCH (10:01)
[2017-01-16] MEDS: MIDODRINE 5 MG TAB PO SCH ×3 (10:02→16:13)
--- NOTE | 2017-01-16 16:12 | IPN ---
DATE: 01/16/2017 Up on the 4th floor. CURRENT MEDICATIONS: - Risperdal 2 mg daily at 5 p.m. - Zyprexa 5 mg by mouth daily at 5 p.m. - Ativan as needed CHIEF COMPLAINT: History of aggression. HISTORY OF PRESENT ILLNESS: The patient is seen with the one-on-one sitter today who reports the patient has not been agitated this morning. Nursing staff also confirm this. The patient slept reasonably well last night. He did require an added dose of Ativan as needed yesterday but in general is having fewer outbursts. He is more compliant with staff direction and intervention. The patient was seen yesterday as well with his and daughter, they were pleasantly surprised that the patient was reading the contents of a get well card received from the local [employer]. MENTAL STATUS EXAMINATION: The patient is sitting quietly in his chair eating a piece of pie. His affect appears good today. He is not irritable. He is not hostile. He is not aggressive. His speech is rambling as before, it is disjointed. He is disoriented. Memory functions are impaired, but no signs of agitation noted today. He is not depressed, not manic. Insight and judgment remain impaired of course due to his dementia process. The patient appears calmer. He is not restless and agitated as noted last week. DIAGNOSIS: Dementia with behavioral disturbance. PLAN: When appropriate, he may be increased to 3 mg Risperdal at 5 p.m. and his Zyprexa may be lowered to 2.5 mg also by mouth at 5 p.m. with an eventual goal of weaning him off the Zyprexa altogether. The patient will be monitored closely. [facility]
[2017-01-16] MEDS: risperiDONE 2 MG TAB PO SCH (16:13)
[2017-01-16] MEDS: OLANZapine 5 MG TAB PO SCH (16:13)
[2017-01-16] MEDS: LORazepam 0.5 MG TAB PO PRN (18:34)
[2017-01-16] MEDS: ATORVASTATIN 10 MG TAB PO SCH (20:09)
[2017-01-16] MEDS: ACETAMINOPHEN TAB 650MG DOSE (2X325MG) PO PRN (20:10)
[2017-01-17 06:00] VITALS: BP 135/60
[2017-01-17] MEDS: MIDODRINE 5 MG TAB PO SCH ×3 (08:00→16:39)
[2017-01-17] MEDS: ENOXAPARIN 40 MG/0.4 ML SYRINGE (J1650) SC SCH ×3 (09:00→11:24)
[2017-01-17] MEDS: MIRALAX *UNIT DOSE* 17GM PACKET PO SCH (11:17)
[2017-01-17] MEDS: DONEPEZIL 5 MG TAB PO SCH (11:17)
[2017-01-17] MEDS: MEMANTINE 5MG TABLET (NAMENDA) PO SCH (11:17)
[2017-01-17] MEDS: DOCUSATE SODIUM 100 MG CAP PO SCH (11:17)
--- NOTE | 2017-01-17 13:39 | IPNPDOC ---
Subjective Date Seen The patient was seen on 01/17/17. Subjective Chief Complaint/HPI The patient is a 86-year-old male admitted with a reason for visit of Dementia With Behavioral Disturbance. Constitutional: Denies: Fever Eyes: Denies: Pain Cardiovascular: Denies: Chest Pain Gastrointestinal: Denies: Vomiting Neurological: Denies: Weakness Objective Physical Examination General Exam: Positive: Alert, No Acute Distress ENT Exam: Positive: Mucous membr. moist/pink Chest Exam: Positive: Clear to auscultation, Normal air movement Heart Exam: Positive: Rate Normal, Regular Rhythm, Normal S1, Normal S2 Abdomen Exam: Positive: Soft, Negative: Tenderness Extremity Exam: Negative: Edema Neuro Exam: Positive: Normal Speech Psych Exam: Negative: Memory Intact, Oriented x 3 (oriented to person only) Assessment /Plan Problems (1) Dementia with behavioral disturbance Status: Chronic Response to Treatment: Worse Problem Text: 01/17/[address] Trejo input-since initiating risperidone 01/11-15 doses on lorazepam prn have been administered. Will further decrease Zyprexa 5 to 2.5 and increase risperidone 2 to 3 as per Psychiatry recommendation. Case also d/w Dr. 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 Obvious concern is EPS with DA antagonists ( nando risperidone)-this is why quetiapine was used initially). Additionally donepezil and memantine can make symptoms worse and have shown no benefit in FTD. Will add low dose paroxetine 10. 01/11 - Patient is still aggressive despite treatment with Zyprexa, and still require multiple doses of Ativan daily. Seroquel and depakote did not control his behaviors in the past. Referral to Psychiatry was placed today. 01/09 - Zyprexa 5 mg po BID, has been recently removed from Seroquel and Depakote. Ativan has also been changed from scheduled to prn. He continues to demonstrate the same behaviors, his gait also hasn't changed/improved with medication changes. - Remains SNF. 01/08/17 Patient on zyprexa 10mg daily. still occasionally demonstrating aggressive language and posturing. Off Seroquel and on minimal dose of depakote , which will be stopped today. He is on benzodiazepine, dosed routinely in the am. This class of agent can result in behavioral escalation sometimes due to decrease in inhibitions. Will stop routine am dose, leave prn doses for now. 01/06 - given nurses concerned about over sedation/medication as we crossed straight titrate his antipsychotics I decided to discontinue the Seroquel today. Starting tomorrow he'll only be on Zyprexa. He will still be weaned off the Depakote through Monday. We'll need to monitor carefully. It is very possible that Zyprexa will not be a good medication for him, but I think we need to give it a real try before we decide that this was a medication failure. 01/05 - Patient's aggressive behaviors persist despite multiple medical interventions. We are still cross titrating Zyprexa and Seroquel. We have also started down titrating the valproic acid with a goal of taking this off by the end of the weekend. Communication with Dr. Leslie brought out the question as to whether we should get psychiatry involved for assistance with managing his aggressive symptoms. 01/04 - Patient's aggressive behaviors persist despite multiple medical interventions. See Dr Carmona's note from 01/03/17. He notes indication for maximum of 5 twice a day of Zyprexa has the best chance of effectiveness, and that Seroquel has much less evidence for affective treatment. Maximum recommended daily dose of Seroquel is 75 twice a day. He has started titrating him off of Seroquel, with plan to titrate up Zyprexa to the maximum effective dose, and see how he does off of Seroquel, with possibility of restarting Seroquel at no more than [address] Carmona also questions his current treatment with Depakote 3 times a day. Consider neurology consult. 01/03 - Zyprexa was started on 01/01, will increase Seroquel today from 100 mg at 9 and noon, to 150 mg, and from 150 mg in the evening to 200 mg. Cont to titrate and adjust medication to prevent agitation, aggressive behaviors for pt and staff safety without sedating him. 01/02 - Pt still requiring PRN meds for agitation/behavioral disturbances. 01/01 - Patient has required multiple when necessary doses of Haldol for aggressive episodes of agitation. He continues to have aggressive behaviors which are unsafe towards medical staff. Patient seems to be doing well on Zyprexa, so we will continue this. Due to concerns for safety to the patient and staff, benefits of Zyprexa outweigh the risks. If aggressive behaviors continue to be absent, patient may be ready for placement next week. 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 Jan 17, 2017 13:38
[2017-01-17] MEDS: risperiDONE 1 MG TAB PO SCH (16:39)
[2017-01-17] MEDS: OLANZapine 2.5MG TABLET PO SCH (16:39)
[2017-01-17] MEDS: PARoxetine 10MG TABLET PO SCH (16:39)
[2017-01-17] MEDS: ATORVASTATIN 10 MG TAB PO SCH (20:21)
[2017-01-18 06:00] VITALS: BP 135/72
[2017-01-18] MEDS: MIRALAX *UNIT DOSE* 17GM PACKET PO SCH (08:07)
[2017-01-18] MEDS: DONEPEZIL 5 MG TAB PO SCH (08:08)
[2017-01-18] MEDS: MIDODRINE 5 MG TAB PO SCH ×3 (08:08→16:17)
[2017-01-18] MEDS: PARoxetine 10MG TABLET PO SCH (08:08)
[2017-01-18] MEDS: DOCUSATE SODIUM 100 MG CAP PO SCH ×2 (08:08→09:00)
[2017-01-18] MEDS: MEMANTINE 5MG TABLET (NAMENDA) PO SCH (08:08)
[2017-01-18] MEDS: LORazepam 2 MG/ML VIAL (J2060) IM PRN (09:04)
[2017-01-18] MEDS: OLANZapine 2.5MG TABLET PO SCH (16:17)
[2017-01-18] MEDS: risperiDONE 1 MG TAB PO SCH (16:17)
[2017-01-18] MEDS: ATORVASTATIN 10 MG TAB PO SCH (20:00)
[2017-01-18] MEDS: LORazepam 0.5 MG TAB PO PRN (21:16)
[2017-01-19 06:00] VITALS: BP 162/81
[2017-01-19] MEDS: MIRALAX *UNIT DOSE* 17GM PACKET PO SCH (08:02)
[2017-01-19] MEDS: PARoxetine 10MG TABLET PO SCH (08:03)
[2017-01-19] MEDS: MIDODRINE 5 MG TAB PO SCH ×3 (08:03→16:27)
[2017-01-19] MEDS: DONEPEZIL 5 MG TAB PO SCH (08:03)
[2017-01-19] MEDS: MEMANTINE 5MG TABLET (NAMENDA) PO SCH (08:03)
[2017-01-19] MEDS: DOCUSATE SODIUM 100 MG CAP PO SCH (08:03)
[2017-01-19] MEDS: ENOXAPARIN 40 MG/0.4 ML SYRINGE (J1650) SC SCH (10:33)
[2017-01-19] MEDS: LORazepam 0.5 MG TAB PO PRN ×2 (12:04→20:00)
[2017-01-19] MEDS: OLANZapine 2.5MG TABLET PO SCH (16:27)
[2017-01-19] MEDS: risperiDONE 1 MG TAB PO SCH (16:27)
[2017-01-19] MEDS: ATORVASTATIN 10 MG TAB PO SCH (20:00)
[2017-01-20] MEDS: LORazepam 0.5 MG TAB PO PRN ×2 (02:13→17:48)
[2017-01-20 06:00] VITALS: BP 135/66
[2017-01-20] MEDS: MIDODRINE 5 MG TAB PO SCH ×3 (09:27→16:58)
[2017-01-20] MEDS: MEMANTINE 5MG TABLET (NAMENDA) PO SCH (09:27)
[2017-01-20] MEDS: DOCUSATE SODIUM 100 MG CAP PO SCH (09:27)
[2017-01-20] MEDS: ENOXAPARIN 40 MG/0.4 ML SYRINGE (J1650) SC SCH (09:28)
[2017-01-20] MEDS: MIRALAX *UNIT DOSE* 17GM PACKET PO SCH (09:28)
[2017-01-20] MEDS: PARoxetine 10MG TABLET PO SCH (09:28)
[2017-01-20] MEDS: DONEPEZIL 5 MG TAB PO SCH (09:28)
[2017-01-20] MEDS: OLANZapine 2.5MG TABLET PO SCH (16:58)
[2017-01-20] MEDS: risperiDONE 1 MG TAB PO SCH (16:58)
[2017-01-20] MEDS: ATORVASTATIN 10 MG TAB PO SCH (19:58)
[2017-01-21 07:00] VITALS: BP 131/62
[2017-01-21] MEDS: DOCUSATE SODIUM 100 MG CAP PO SCH (09:00)
[2017-01-21] MEDS: ENOXAPARIN 40 MG/0.4 ML SYRINGE (J1650) SC SCH ×2 (09:00→09:10)
[2017-01-21] MEDS: DONEPEZIL 5 MG TAB PO SCH (09:09)
[2017-01-21] MEDS: MEMANTINE 5MG TABLET (NAMENDA) PO SCH (09:09)
[2017-01-21] MEDS: MIDODRINE 5 MG TAB PO SCH ×3 (09:09→16:55)
[2017-01-21] MEDS: MIRALAX *UNIT DOSE* 17GM PACKET PO SCH (09:09)
[2017-01-21] MEDS: PARoxetine 10MG TABLET PO SCH (09:10)
[2017-01-21] MEDS: LORazepam 0.5 MG TAB PO PRN (15:49)
[2017-01-21] MEDS: OLANZapine 2.5MG TABLET PO SCH (16:55)
[2017-01-21] MEDS: risperiDONE 1 MG TAB PO SCH (16:55)
[2017-01-21] MEDS: ACETAMINOPHEN TAB 650MG DOSE (2X325MG) PO PRN (21:18)
[2017-01-21] MEDS: ATORVASTATIN 10 MG TAB PO SCH (21:18)
[2017-01-22 06:00] VITALS: BP 141/89
[2017-01-22] MEDS: DONEPEZIL 5 MG TAB PO SCH (08:06)
[2017-01-22] MEDS: MIRALAX *UNIT DOSE* 17GM PACKET PO SCH (08:06)
[2017-01-22] MEDS: MEMANTINE 5MG TABLET (NAMENDA) PO SCH (08:06)
[2017-01-22] MEDS: DOCUSATE SODIUM 100 MG CAP PO SCH (08:06)
[2017-01-22] MEDS: PARoxetine 10MG TABLET PO SCH (08:06)
[2017-01-22] MEDS: MIDODRINE 5 MG TAB PO SCH ×3 (08:06→16:29)
[2017-01-22] MEDS: ENOXAPARIN 40 MG/0.4 ML SYRINGE (J1650) SC SCH (08:07)
[2017-01-22] MEDS: OLANZapine 2.5MG TABLET PO SCH (16:29)
[2017-01-22] MEDS: risperiDONE 1 MG TAB PO SCH (16:29)
[2017-01-22] MEDS: LORazepam 0.5 MG TAB PO PRN (18:52)
[2017-01-22] MEDS: ATORVASTATIN 10 MG TAB PO SCH (20:09)
[2017-01-22] MEDS: ACETAMINOPHEN TAB 650MG DOSE (2X325MG) PO PRN (20:10)
[2017-01-23 06:00] VITALS: BP 154/59
[2017-01-23] MEDS: DONEPEZIL 5 MG TAB PO SCH (08:51)
[2017-01-23] MEDS: MEMANTINE 5MG TABLET (NAMENDA) PO SCH (08:51)
[2017-01-23] MEDS: ENOXAPARIN 40 MG/0.4 ML SYRINGE (J1650) SC SCH ×2 (08:51→09:00)
[2017-01-23] MEDS: MIRALAX *UNIT DOSE* 17GM PACKET PO SCH (08:51)
[2017-01-23] MEDS: DOCUSATE SODIUM 100 MG CAP PO SCH (08:51)
[2017-01-23] MEDS: PARoxetine 10MG TABLET PO SCH (08:51)
[2017-01-23] MEDS: MIDODRINE 5 MG TAB PO SCH ×3 (08:51→16:55)
[2017-01-23] MEDS: LORazepam 0.5 MG TAB PO PRN ×2 (13:38→21:35)
[2017-01-23] MEDS: risperiDONE 1 MG TAB PO SCH (16:55)
[2017-01-23] MEDS: OLANZapine 2.5MG TABLET PO SCH (16:55)
[2017-01-23] MEDS: ATORVASTATIN 10 MG TAB PO SCH (21:35)
[2017-01-24 06:00] VITALS: BP 129/62
[2017-01-24] MEDS: DONEPEZIL 5 MG TAB PO SCH (08:53)
[2017-01-24] MEDS: MEMANTINE 5MG TABLET (NAMENDA) PO SCH (08:53)
[2017-01-24] MEDS: DOCUSATE SODIUM 100 MG CAP PO SCH (08:53)
[2017-01-24] MEDS: MIRALAX *UNIT DOSE* 17GM PACKET PO SCH (08:53)
[2017-01-24] MEDS: MIDODRINE 5 MG TAB PO SCH (08:53)
[2017-01-24] MEDS: PARoxetine 10MG TABLET PO SCH (08:53)
[2017-01-24] MEDS: ENOXAPARIN 40 MG/0.4 ML SYRINGE (J1650) SC SCH (08:54)
[2017-01-24] MEDS ORDERED: ATIV1TAB10 PO (10:24)
[2017-01-24] MEDS ORDERED: MIDO5TA PO (10:24)
[2017-01-24] MEDS ORDERED: PEG1POW PO (10:24)
[2017-01-24] MEDS ORDERED: MEMA1TAB PO (10:24)
[2017-01-24] MEDS ORDERED: RISP1TAB42 PO (10:24)
[2017-01-24] MEDS ORDERED: PARO5TAB PO (10:24)
[2017-01-24] MEDS ORDERED: OLAN2.5T PO (10:24)
--- NOTE | 2017-02-20 12:49 | DSES ---
DATE OF ADMISSION: 12/22/2016 DATE OF DISCHARGE: 01/24/2017 PRINCIPAL DIAGNOSES: 1. Dementia with behavioral disturbance. 2. 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 3. 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 CONSULTATION: Psychiatry, Dr. Trejo. HISTORY: I am being asked to dictate a discharge summary on Haroon Reza. I did not see him at all during his hospitalization. It is in my pile for dictation and to facilitate getting the paperwork done I will dictate this. I did not see him while he was hospitalized. He was admitted for behavioral disturbance. He has recurrent admissions. He was in [facility] and was increasingly aggressive, striking out against the people caring for him there. He had a history of diagnosis of Lewy body dementia. For details, see history and physical on admission. HOSPITAL COURSE: The patient was admitted to a medical bed, residential level of care, medications were adjusted and psychiatry saw him. Dr. Grajeda felt that he needed a specialized [facility] location where they could take care of people with frontal disinhibition problems. He was transferred on 01/24/2017. MEDICATIONS: - Ativan 0.5 mg every 2 hours as needed for agitation - Namenda 10 mg daily - midodrine 5 mg three times a day at 8, 12 and 4:00 p.m. - olanzapine 2.5 mg at 5:00 p.m. - Paxil 10 mg daily - MiraLAX 1 packet daily - Risperdal 3 mg daily at 5:00 p.m. - Tylenol as needed - atorvastatin 10 mg every two days - Colace 100 mg as needed - Aricept 5 mg daily - milk of magnesia as needed - multivitamins as needed ACTIVITY: As tolerated. DIET: No added salt, low fat, cholesterol diet.
== END 2017-01-24 11:25 | DRG 57 ==
LOC: M ED 18:16 → M ED INP 12-22 14:26 → M MS5PR 12-22 16:25 → OBSVTOIN 12-23 12:35 → M MSPAV 12-26 12:55
PROVIDERS: ADMIT Hospitalist; ATTEND Family Medicine
DX: G31.83 Neurocognitive disorder with Lewy bodies (principal); F02.81 Dementia in other diseases classified elsewhere, unspecified severity, with behavioral disturbance; E78.5 Hyperlipidemia, unspecified; N40.0 Benign prostatic hyperplasia without lower urinary tract symptoms; K21.9 Gastro-esophageal reflux disease without esophagitis; I95.89 Other hypotension; R26.81 Unsteadiness on feet; R29.6 Repeated falls; F32.9 Major depressive disorder, single episode, unspecified; K57.90 Diverticulosis of intestine, part unspecified, without perforation or abscess without bleeding; Z79.899 Other long term (current) drug therapy

== ENCOUNTER → 2017-05-08 | Outpatient (REF) | payer MEDICARE, BC, OTHER ==
[~2017-05-08] MED LIST changes: +ACEP650S PR; +BISA10SU4 PR; +ENEMENE16 PR; +MEMA1TAB PO; +MILKSUS5 PO; +OLAN2.5T PO; +PARO5TAB PO; +PEG1POW PO; +RISP1TAB42 PO; +TYLE325T5 PO
[2017-05-08 09:14] LABS: ANION GAP 9 MEQ/L (8-16); BLOOD UREA NITROGEN 17 MG/DL (7-18); CALCIUM LEVEL 8.5 MG/DL (8.8-10.2); CARBON DIOXIDE LEVEL 27 MEQ/L (21-32); CHLORIDE LEVEL 100 MEQ/L (98-107); CREATININE FOR GFR 0.94 MG/DL (0.70-1.30); GLOMERULAR FILTRATION RATE > 60.0 (>35); GLUCOSE, FASTING 90 MG/DL (83-110); POTASSIUM SERUM 4.2 MEQ/L (3.5-5.1); SODIUM LEVEL 136 MEQ/L (136-145)
== END ==
LOC: SKLAB8 08:00
PROVIDERS: ATTEND Family Medicine
DX: I95.9 Hypotension, unspecified (principal)

== ENCOUNTER 2017-07-17 11:30 | Outpatient (REF) | payer MEDICARE, BC, OTHER | END 2017-08-17 | LOC: SKLAB8 11:30 | DX: R09.89 Other specified symptoms and signs involving the circulatory and respiratory systems (principal) | CPT/HCPCS: 87633 ==

== ENCOUNTER → 2017-09-29 | Outpatient (REF) | payer MEDICARE, BC, OTHER ==
[2017-09-29 17:57] LABS: HEMATOCRIT 41.3 % (42.0-52.0); HEMOGLOBIN 13.4 g/dl (13.5-17.5); MEAN CORPUSCULAR HEMOGLOBIN 29.5 pg (27.0-33.0); MEAN CORPUSCULAR HGB CONC 32.4 g/dl (32.0-36.5); MEAN CORPUSCULAR VOLUME 90.8 fl (80.0-96.0); PLATELET COUNT, AUTOMATED 208 10^3/uL (150-450); RED BLOOD COUNT 4.55 10^6/uL (4.30-6.10); RED CELL DISTRIBUTION WIDTH 13.1 % (11.5-14.5); WHITE BLOOD COUNT 7.8 10^3/uL (4.0-10.0)
[2017-09-29 18:11] LABS: ALBUMIN 3.5 GM/DL (3.2-5.2); ALBUMIN/GLOBULIN RATIO 1.03 (1.00-1.93); ALKALINE PHOSPHATASE 90 U/L (45-117); ALT/SGPT 17 U/L (12-78); ANION GAP 4 MEQ/L (8-16); AST/SGOT 10 U/L (7-37); BILIRUBIN,TOTAL 0.3 MG/DL (0.2-1.0); BLOOD UREA NITROGEN 19 MG/DL (7-18); CALCIUM LEVEL 8.7 MG/DL (8.8-10.2); CARBON DIOXIDE LEVEL 30 MEQ/L (21-32); CHLORIDE LEVEL 108 MEQ/L (98-107); CREATININE FOR GFR 0.87 MG/DL (0.70-1.30); GLOMERULAR FILTRATION RATE > 60.0 (>35); GLUCOSE, FASTING 99 MG/DL (70-100); SODIUM LEVEL 142 MEQ/L (136-145); TOTAL PROTEIN 6.9 GM/DL (6.4-8.2)
== END ==
LOC: SKLAB8 16:31
DX: F03.91 Unspecified dementia, unspecified severity, with behavioral disturbance (principal); Z79.899 Other long term (current) drug therapy
CPT/HCPCS: 84443

== ENCOUNTER → 2018-09-13 | Outpatient (CLI) | payer MEDICARE, BC, OTHER ==
[~2018-09-13] MED LIST changes: -DEPA125C PO; +DEPA1CAP PO; -ENEMENE16 PR; +ENEMENE4 PR
--- NOTE | 2018-09-13 13:53 | REP ---
CT Head without contrast HISTORY: Fall COMPARISON: 11/24/2016 Areas of decreased attenuation are present in the periventricular and subcortical white matter. This represents small-vessel ischemic disease. There is no intraparenchymal hemorrhage, acute infarct, mass or midline shift. A punctate calcification is present in the cortex of the right frontal lobe. The ventricular system loss of the ventricular system and cortical sulci as well as subarachnoid space in the posterior fossa are dilated consistent with moderate volume loss. There is no extra cerebral collection. There is no fracture. Mucosal thickening is present in the right ethmoid sinus. IMPRESSION: 1. Small vessel ischemic disease. 2. Moderate volume loss. Electronically Signed by Skyler Luong MD 09/13/2018 01:45 P
== END ==
LOC: M LAB 13:19
PROVIDERS: ATTEND Nurse Practitioner Family
DX: I67.82 Cerebral ischemia (principal); Z91.81 History of falling

== ENCOUNTER → 2019-04-18 | Outpatient (REF) | payer MEDICARE, BC, OTHER ==
[~2019-04-18] MED LIST changes: -ASPI1TAB PO; +ASPI81TA26 PO; -OLAN2.5T PO; +OLAN2.5T25 PO; +SERT-141 PO; -SERT25TA PO; +SERT25TA85 PO; -SERT50TA PO
[2019-04-18 09:15] LABS: ALBUMIN 3.3 GM/DL (3.2-5.2); ALT/SGPT 24 U/L (12-78); BILIRUBIN,TOTAL 0.3 MG/DL (0.2-1.0); BLOOD UREA NITROGEN 23 MG/DL (7-18); CALCIUM LEVEL 8.8 MG/DL (8.8-10.2); CARBON DIOXIDE LEVEL 25 MEQ/L (21-32); CHLORIDE LEVEL 111 MEQ/L (98-107); CREATININE FOR GFR 0.84 MG/DL (0.70-1.30); GLOMERULAR FILTRATION RATE > 60.0 (>35); GLUCOSE, FASTING 76 MG/DL (70-100); POTASSIUM SERUM 4.5 MEQ/L (3.5-5.1); SODIUM LEVEL 144 MEQ/L (136-145); TOTAL PROTEIN 6.7 GM/DL (6.4-8.2); VALPROIC ACID (DEPAKOTE) 26.1 UG/ML (50.0-100.0)
[2019-04-19 07:42] LABS: BASO # 0.1 10^3/uL (0.0-0.2); BASO % 0.8 % (0.0-1.0); EOS # 0.4 10^3/uL (0.0-0.5); EOS % 5.9 % (0.0-3.0); HEMATOCRIT 36.5 % (42.0-52.0); LYMPH # 1.7 10^3/uL (1.5-5.0); MEAN CORPUSCULAR HEMOGLOBIN 32.1 pg (27.0-33.0); MEAN CORPUSCULAR HGB CONC 32.9 g/dl (32.0-36.5); MEAN CORPUSCULAR VOLUME 97.6 fl (80.0-96.0); MONO # 0.8 10^3/uL (0.0-0.8); MONO % 12.9 % (0.0-5.0); NEUTROPHILS # 3.2 10^3/uL (1.5-8.5); NEUTROPHILS % 52.1 % (36.0-66.0); PLATELET COUNT, AUTOMATED 164 10^3/uL (150-450); RED BLOOD COUNT 3.74 10^6/uL (4.30-6.10); WHITE BLOOD COUNT 6.1 10^3/uL (4.0-10.0)
== END ==
LOC: SKLAB8 07:00
PROVIDERS: ATTEND Family Medicine
DX: Z79.899 Other long term (current) drug therapy (principal)